=== PATIENT | female | born 1945 | race Caucasian/White ===

== ENCOUNTER → 2016-10-20 | Outpatient (CLI) | payer MEDICARE, OTHER ==
[~2016-10-20] MED LIST: ACET-2744 PO; ALBU8.5H IH; ALBU8HFA4 IH; AMLO2.5T PO; ASCO-360 PO; ASPI81TA2 PO; BACL20TA PO; BUDE10.2 IH; CALC-51 PO; CALC-789 PO; CLON.5 PO; CLON0.5T PO; CRAN500C3 PO; DULO30CA2 PO; EFIN4SOL TP; FERR325C PO; FLUT44HFA IH; FLUT9.9S NASAL; FLUV50 PO; GLUC-206 PO; HYDR-3971 PO; INSLAN SQ; INSNOV SQ; LOPE2TAB8 PO; METH1T PO; MONT10TA21 PO; MULT-1203 PO; OMEP20 PO; PHEN-857 PO; SITA25 PO; SLOMG PO; TAMS0.4C32 PO; TRAZ-144 PO; ZOLP5 PO
[2016-10-20 12:27] LABS: BASOPHILS % (AUTO) 0.4 % (0.0-2.0); EOSINOPHILS % (AUTO) 9.2 % (1.0-6.0); HEMOGLOBIN 10.9 g/dL (12.0-16.0); MEAN CORPUSCULAR HEMOGLOBIN 30.9 pg (26.0-34.0); MEAN CORPUSCULAR HGB CONC 31.1 G/dL (31.0-37.0); MEAN CORPUSCULAR VOLUME 100 fL (80-100); MONOCYTES # (AUTO) 0.5 K/uL (0.1-1.0); MONOCYTES % (AUTO) 6.7 % (2.0-9.0); NEUTROPHILS # (AUTO) 4.5 K/uL (1.8-7.7); NEUTROPHILS % (AUTO) 57.7 % (40.0-70.0); PLATELET COUNT (AUTO) 306 K/uL (150-450); RED BLOOD CELL COUNT(AUTO) 3.51 MIL/uL (4.00-5.20); RED CELL DISTRIBUTION WIDTH 15.5 % (11.5-14.5); WHITE BLOOD COUNT (AUTO) 7.8 K/uL (4.5-11.0)
[2016-10-20 12:37] LABS: ALBUMIN 3.6 g/dL (3.4-5.0); BILIRUBIN,TOTAL 0.3 mg/dL (0.1-1.0); CALCIUM, TOTAL 8.7 mg/dL (8.8-10.5); CHOL/HDL RATIO 3.7 (3.9-5.7); CREATININE 1.17 mg/dL (0.60-1.30); MAGNESIUM 1.5 mg/dL (1.80-2.40); POTASSIUM 4.7 mmol/L (3.5-5.1); TOTAL PROTEIN, SERUM 6.7 g/dL (6.4-8.2)
[2016-10-20 12:50] LABS: HEMOGLOBIN A1C 5.3 % (4.5-6.2)
[2016-10-24 10:47] LABS: CREATININE, URINE (mALB) 26.1 mg/dL (Not Estab.)
== END | disposition home or self-care (01) ==
LOC: LABPV 11:03
PROVIDERS: ATTEND Internal Medicine
DX: E11.69 Type 2 diabetes mellitus with other specified complication (principal); E78.5 Hyperlipidemia, unspecified; Z79.899 Other long term (current) drug therapy
CPT/HCPCS: 82043; 82570; 83036; 83735

== ENCOUNTER → 2016-11-22 | Outpatient (CLI) | payer MEDICARE, OTHER ==
[2016-11-22 16:32] LABS: BASOPHILS % (AUTO) 0.5 % (0.0-2.0); HEMOGLOBIN 9.1 g/dL (12.0-16.0); LYMPHOCYTES # (AUTO) 2.1 K/uL (1.0-4.8); LYMPHOCYTES % (AUTO) 29.2 % (22.0-44.0); MEAN CORPUSCULAR HGB CONC 31.5 G/dL (31.0-37.0); MEAN CORPUSCULAR VOLUME 105 fL (80-100); MONOCYTES # (AUTO) 0.5 K/uL (0.1-1.0); MONOCYTES % (AUTO) 6.6 % (2.0-9.0); NEUTROPHILS # (AUTO) 4.1 K/uL (1.8-7.7); NEUTROPHILS % (AUTO) 58.7 % (40.0-70.0); PLATELET COUNT (AUTO) 309 K/uL (150-450); RED BLOOD CELL COUNT(AUTO) 2.76 MIL/uL (4.00-5.20); RED CELL DISTRIBUTION WIDTH 16.7 % (11.5-14.5); WHITE BLOOD COUNT (AUTO) 7.1 K/uL (4.5-11.0)
[2016-11-22 16:34] LABS: RBC MORPHOLOGY COMMENT ABNORMAL RBC MORPH
[2016-11-22 16:38] LABS: HEMOGLOBIN A1C 5.2 % (4.5-6.2)
[2016-11-22 17:56] LABS: CALCIUM, TOTAL 8.4 mg/dL (8.8-10.5); CREATININE 0.98 mg/dL (0.60-1.30); MAGNESIUM 1.5 mg/dL (1.80-2.40); POTASSIUM 5.2 mmol/L (3.5-5.1); THYROID STIMULATING HORMONE 2.72 uIU/mL (0.36-3.74)
== END | disposition home or self-care (01) ==
LOC: LABPV 13:40
PROVIDERS: ATTEND Internal Medicine
DX: E11.69 Type 2 diabetes mellitus with other specified complication (principal); E03.9 Hypothyroidism, unspecified; D64.9 Anemia, unspecified; Z79.899 Other long term (current) drug therapy
CPT/HCPCS: 82728; 82746; 83036; 83540; 83550; 83735; 84443

== ENCOUNTER → 2016-12-28 | Outpatient (CLI) | payer MEDICARE, OTHER ==
[~2016-12-28] MED LIST changes: -ALBU8.5H IH; -AMLO2.5T PO; -ASCO-360 PO; -BUDE10.2 IH; -CALC-789 PO; -CLON.5 PO; -CRAN500C3 PO; -EFIN4SOL TP; -FERR325C PO; -GLUC-206 PO; -LOPE2TAB8 PO; -METH1T PO; -MULT-1203 PO; -PHEN-857 PO; -SLOMG PO
[2016-12-28 16:29] LABS: BASOPHILS % (AUTO) 0.4 % (0.0-2.0); EOSINOPHILS % (AUTO) 9.1 % (1.0-6.0); HEMATOCRIT 32.1 % (36-46); LYMPHOCYTES # (AUTO) 1.7 K/uL (1.0-4.8); LYMPHOCYTES % (AUTO) 23.6 % (22.0-44.0); MEAN CORPUSCULAR HEMOGLOBIN 32.4 pg (26.0-34.0); MEAN CORPUSCULAR HGB CONC 31.2 G/dL (31.0-37.0); MEAN CORPUSCULAR VOLUME 104 fL (80-100); MONOCYTES # (AUTO) 0.5 K/uL (0.1-1.0); MONOCYTES % (AUTO) 6.8 % (2.0-9.0); NEUTROPHILS # (AUTO) 4.2 K/uL (1.8-7.7); NEUTROPHILS % (AUTO) 60.1 % (40.0-70.0); PLATELET COUNT (AUTO) 326 K/uL (150-450); RED BLOOD CELL COUNT(AUTO) 3.09 MIL/uL (4.00-5.20); RED CELL DISTRIBUTION WIDTH 14.1 % (11.5-14.5)
[2016-12-28 16:32] LABS: RBC MORPHOLOGY COMMENT ABNORMAL RBC MORPH
[2016-12-28 16:48] LABS: ALBUMIN 3.2 g/dL (3.4-5.0); BILIRUBIN,TOTAL 0.3 mg/dL (0.1-1.0); CHOL/HDL RATIO 3.8 (3.9-5.7); CREATININE 1.39 mg/dL (0.60-1.30); MAGNESIUM 1.6 mg/dL (1.80-2.40); POTASSIUM 5.8 mmol/L (3.5-5.1); TOTAL PROTEIN, SERUM 6.8 g/dL (6.4-8.2)
[2016-12-28 16:51] LABS: HEMOGLOBIN A1C 5.8 % (4.5-6.2)
== END | disposition home or self-care (01) ==
LOC: LABPV 13:06
PROVIDERS: ATTEND Internal Medicine
DX: E11.69 Type 2 diabetes mellitus with other specified complication (principal); E78.5 Hyperlipidemia, unspecified; D64.9 Anemia, unspecified; Z79.899 Other long term (current) drug therapy
CPT/HCPCS: 82607; 83036; 83540; 83735

== ENCOUNTER → 2017-01-15 | Outpatient (CLI) | payer MEDICARE, OTHER ==
[2017-01-15 16:21] LABS: CALCIUM, TOTAL 8.7 mg/dL (8.8-10.5); CREATININE 1.08 mg/dL (0.60-1.30); MAGNESIUM 1.7 mg/dL (1.80-2.40); POTASSIUM 4.9 mmol/L (3.5-5.1)
== END | disposition home or self-care (01) ==
LOC: LABPV 14:34
PROVIDERS: ATTEND Internal Medicine
DX: E78.5 Hyperlipidemia, unspecified (principal); E83.42 Hypomagnesemia
CPT/HCPCS: 83735

== ENCOUNTER 2017-01-30 22:00 | Emergency (ER) | payer MEDICARE, OTHER ==
[~2017-01-30] VITALS: Ht 170.2 cm; Wt 79.5 kg
[2017-01-30 22:33] LABS: GLUCOSE COMMENT 1 Repeated; GLUCOSE,POINT OF CARE 194 MG/DL (70-110)
[2017-01-30 22:51] LABS: BASOPHILS % (AUTO) 0.4 % (0.0-2.0); EOSINOPHILS % (AUTO) 3.9 % (1.0-6.0); HEMATOCRIT 30.9 % (36-46); HEMOGLOBIN 9.5 g/dL (12.0-16.0); LYMPHOCYTES % (AUTO) 24.2 % (22.0-44.0); MEAN CORPUSCULAR HGB CONC 30.8 G/dL (31.0-37.0); MEAN CORPUSCULAR VOLUME 107 fL (80-100); MONOCYTES # (AUTO) 0.5 K/uL (0.1-1.0); MONOCYTES % (AUTO) 6.4 % (2.0-9.0); NEUTROPHILS # (AUTO) 5.3 K/uL (1.8-7.7); NEUTROPHILS % (AUTO) 65.1 % (40.0-70.0); PLATELET COUNT (AUTO) 319 K/uL (150-450); RED BLOOD CELL COUNT(AUTO) 2.89 MIL/uL (4.00-5.20); RED CELL DISTRIBUTION WIDTH 16.8 % (11.5-14.5); WHITE BLOOD COUNT (AUTO) 8.2 K/uL (4.5-11.0)
[2017-01-30 23:03] LABS: ANION GAP 3 mmol/L (8-16); CALCIUM, TOTAL 8.6 mg/dL (8.8-10.5); CARBON DIOXIDE 34 mmol/L (22-29); CHLORIDE 99 mmol/L (98-107); CREATININE 1.13 mg/dL (0.60-1.30); GLOMERULAR FILTR. RATE CALC 47 mL/min (>60); POTASSIUM 4.6 mmol/L (3.5-5.1); SODIUM SERUM 136 mmol/L (136-145); UREA NITROGEN, BLOOD 27 mg/dL (7-18)
[2017-01-30 23:04] LABS: RBC MORPHOLOGY COMMENT ABNORMAL RBC MORPH
[2017-01-30 23:08] LABS: ALANINE AMINOTRANSFERASE 23 U/L (12-78); ALBUMIN 3.2 g/dL (3.4-5.0); ASPARTATE AMINOTRANSFERASE 12 U/L (15-37); BILIRUBIN,TOTAL 0.5 mg/dL (0.1-1.0); TOTAL PROTEIN, SERUM 6.3 g/dL (6.4-8.2)
[2017-01-30 23:09] LABS: B-TYPE NATRIURETIC PEPTIDE < 5 pg/mL (0-100)
[2017-01-30 23:19] LABS: APPEARANCE,URINE TURBID (CLEAR); GLUCOSE, URINE (UA) 100 mg/dL (NEGATIVE); KETONES,URINE NEGATIVE (NEGATIVE); LEUKOCYTE ESTERASE ,URINE LARGE (NEGATIVE); OCCULT BLOOD,URINE SMALL (NEGATIVE); PH,URINE 6.5 (5.0-8.0); PROTEIN,URINE POS 1+ (NEGATIVE)
[2017-01-30 23:28] LABS: SQUAMOUS EPITHELIAL CELL,UR Few /LPF (None Seen); WBC,URINE >100 /HPF (0-5)
[2017-01-30 23:32] LABS: LACTIC ACID 1.9 mmol/L (0.4-2.0)
[2017-01-31 00:43] VITALS: BP 164/70
[2017-01-31] MEDS ORDERED: CIPROFLOXACIN HCL 250 MG TABLET PO ONE (00:45)
[2017-01-31] MEDS ORDERED: ClonazePAM 1 MG TABLET PO ONE (00:45)
[2017-02-21] MEDS ORDERED: EFIN4SOL TP (15:28)
[2017-02-21] MEDS ORDERED: CLON.5 PO (15:28)
[2017-02-21] MEDS ORDERED: FERR325C PO (15:28)
[2017-02-21] MEDS ORDERED: PHEN-857 PO (15:28)
[2017-02-21] MEDS ORDERED: GLUC-206 PO (15:28)
[2017-02-21] MEDS ORDERED: ALBU8.5H IH (15:28)
[2017-02-21] MEDS ORDERED: CRAN500C3 PO (15:28)
[2017-02-21] MEDS ORDERED: ASCO-360 PO (15:28)
[2017-02-21] MEDS ORDERED: FLUV50 PO (15:28)
[2017-02-21] MEDS ORDERED: LOPE2TAB8 PO (15:28)
[2017-02-21] MEDS ORDERED: METH1T PO (15:28)
[2017-02-21] MEDS ORDERED: SLOMG PO (15:28)
[2017-02-21] MEDS ORDERED: MULT-1203 PO (15:28)
[2017-02-21] MEDS ORDERED: CALC-789 PO (15:28)
[2017-02-21] MEDS ORDERED: AMLO2.5T PO (15:28)
[2017-02-21] MEDS ORDERED: BUDE10.2 IH (15:28)
== END 2017-01-31 01:00 | disposition home or self-care (01) ==
LOC: EMS 22:03
DX: N39.0 Urinary tract infection, site not specified (principal); E11.65 Type 2 diabetes mellitus with hyperglycemia; E11.40 Type 2 diabetes mellitus with diabetic neuropathy, unspecified; J45.909 Unspecified asthma, uncomplicated; K21.9 Gastro-esophageal reflux disease without esophagitis; E03.9 Hypothyroidism, unspecified; I10 Essential (primary) hypertension; F11.90 Opioid use, unspecified, uncomplicated; Z79.4 Long term (current) use of insulin; Z88.6 Allergy status to analgesic agent; Z88.1 Allergy status to other antibiotic agents; Z88.5 Allergy status to narcotic agent; Z88.8 Allergy status to other drugs, medicaments and biological substances
CPT/HCPCS: 82962; 83605; 87040; 87086; 93005; 99285

== ENCOUNTER → 2017-01-31 | Outpatient (CLI) | payer MEDICARE, OTHER ==
[2017-01-31 11:49] LABS: BASOPHILS % (AUTO) 0.3 % (0.0-2.0); EOSINOPHILS % (AUTO) 3.4 % (1.0-6.0); HEMATOCRIT 30.5 % (36-46); HEMOGLOBIN 9.5 g/dL (12.0-16.0); LYMPHOCYTES # (AUTO) 2.1 K/uL (1.0-4.8); LYMPHOCYTES % (AUTO) 27.1 % (22.0-44.0); MEAN CORPUSCULAR HEMOGLOBIN 33.2 pg (26.0-34.0); MEAN CORPUSCULAR VOLUME 107 fL (80-100); MONOCYTES # (AUTO) 0.5 K/uL (0.1-1.0); MONOCYTES % (AUTO) 6.7 % (2.0-9.0); NEUTROPHILS # (AUTO) 4.9 K/uL (1.8-7.7); NEUTROPHILS % (AUTO) 62.5 % (40.0-70.0); PLATELET COUNT (AUTO) 304 K/uL (150-450); RED BLOOD CELL COUNT(AUTO) 2.85 MIL/uL (4.00-5.20); RED CELL DISTRIBUTION WIDTH 16.2 % (11.5-14.5); WHITE BLOOD COUNT (AUTO) 7.9 K/uL (4.5-11.0)
[2017-01-31 11:50] LABS: RBC MORPHOLOGY COMMENT ABNORMAL RBC MORPH
[2017-01-31 13:02] LABS: ALBUMIN 3.3 g/dL (3.4-5.0); BILIRUBIN,TOTAL 0.5 mg/dL (0.1-1.0); CALCIUM, TOTAL 8.9 mg/dL (8.8-10.5); CHOL/HDL RATIO 3.2 (3.9-5.7); MAGNESIUM 1.7 mg/dL (1.80-2.40); POTASSIUM 4.9 mmol/L (3.5-5.1); THYROID STIMULATING HORMONE 4.71 uIU/mL (0.36-3.74); TOTAL PROTEIN, SERUM 6.4 g/dL (6.4-8.2)
[2017-01-31 13:30] LABS: HEMOGLOBIN A1C 5.4 % (4.5-6.2)
== END | disposition home or self-care (01) ==
LOC: LABPV 09:57
PROVIDERS: ATTEND Internal Medicine Cardiovascular Disease
DX: I11.0 Hypertensive heart disease with heart failure (principal); I50.9 Heart failure, unspecified; E11.8 Type 2 diabetes mellitus with unspecified complications; E55.9 Vitamin D deficiency, unspecified
CPT/HCPCS: 82306; 83036; 83735; 84439; 84443

== ENCOUNTER → 2017-02-12 | Outpatient (CLI) | payer MEDICARE, OTHER | END | disposition home or self-care (01) | LOC: RADPV 12:30 | PROVIDERS: ATTEND Urology | DX: N28.1 Cyst of kidney, acquired (principal); N39.0 Urinary tract infection, site not specified; N32.89 Other specified disorders of bladder | CPT/HCPCS: 76770 ==

== ENCOUNTER 2017-02-17 15:00 | Emergency (ER) | payer MEDICARE, OTHER ==
[~2017-02-17] VITALS: Ht 167.6 cm; Wt 95.5 kg
[2017-02-17 15:22] LABS: GLUCOSE,POINT OF CARE 226 MG/DL (70-110)
[2017-02-17 16:03] LABS: BASOPHILS % (AUTO) 0.2 % (0.0-2.0); HEMATOCRIT 28.1 % (36-46); HEMOGLOBIN 9.3 g/dL (12.0-16.0); LYMPHOCYTES # (AUTO) 1.4 K/uL (1.0-4.8); LYMPHOCYTES % (AUTO) 27.5 % (22.0-44.0); MEAN CORPUSCULAR HEMOGLOBIN 35.8 pg (26.0-34.0); MEAN CORPUSCULAR HGB CONC 33.1 G/dL (31.0-37.0); MEAN CORPUSCULAR VOLUME 108 fL (80-100); MONOCYTES # (AUTO) 0.4 K/uL (0.1-1.0); MONOCYTES % (AUTO) 7.5 % (2.0-9.0); NEUTROPHILS # (AUTO) 3.2 K/uL (1.8-7.7); NEUTROPHILS % (AUTO) 61.8 % (40.0-70.0); PLATELET COUNT (AUTO) 325 K/uL (150-450); RED BLOOD CELL COUNT(AUTO) 2.59 MIL/uL (4.00-5.20); RED CELL DISTRIBUTION WIDTH 14.9 % (11.5-14.5); WHITE BLOOD COUNT (AUTO) 5.3 K/uL (4.5-11.0)
[2017-02-17 16:14] LABS: INR 0.9 (0.9-1.1)
[2017-02-17 16:19] LABS: ANION GAP 7 mmol/L (8-16); CALCIUM, TOTAL 8.6 mg/dL (8.8-10.5); CARBON DIOXIDE 29 mmol/L (22-29); CHLORIDE 102 mmol/L (98-107); CREATININE 1.09 mg/dL (0.60-1.30); GLOMERULAR FILTR. RATE CALC 49 mL/min (>60); POTASSIUM 4.7 mmol/L (3.5-5.1); SODIUM SERUM 138 mmol/L (136-145); UREA NITROGEN, BLOOD 21 mg/dL (7-18)
[2017-02-17 16:21] LABS: B-TYPE NATRIURETIC PEPTIDE 8 pg/mL (0-100)
[2017-02-17 16:24] LABS: ALANINE AMINOTRANSFERASE 19 U/L (12-78); ALBUMIN 2.9 g/dL (3.4-5.0); AMYLASE 20 U/L (25-115); ASPARTATE AMINOTRANSFERASE 10 U/L (15-37); BILIRUBIN,TOTAL 0.5 mg/dL (0.1-1.0); CREATINE KINASE, TOTAL 32 U/L (26-192); RBC MORPHOLOGY COMMENT ABNORMAL RBC MORPH; TOTAL PROTEIN, SERUM 5.7 g/dL (6.4-8.2)
[2017-02-17 16:37] LABS: APPEARANCE,URINE CLOUDY (CLEAR); GLUCOSE, URINE (UA) 250 mg/dL (NEGATIVE); KETONES,URINE NEGATIVE (NEGATIVE); LEUKOCYTE ESTERASE ,URINE LARGE (NEGATIVE); OCCULT BLOOD,URINE MODERATE (NEGATIVE); PROTEIN,URINE NEGATIVE (NEGATIVE)
[2017-02-17 16:40] LABS: ADD UA MICROSCOPIC YES; WBC,URINE 51-100 /HPF (0-5)
[2017-02-17 16:41] LABS: SQUAMOUS EPITHELIAL CELL,UR Few /LPF (None Seen)
[2017-02-17] MEDS ORDERED: SODIUM CHLORIDE 0.9% 1,000 ML IV ONE ×2 (17:21→17:30)
[2017-02-17] MEDS ORDERED: LEVOFLOXACIN 500 MG/D5% WATER 100 ML IV ONE (17:30)
[2017-02-17 19:25] VITALS: BP 112/65
== END 2017-02-17 19:27 | disposition home or self-care (01) ==
LOC: EMS 15:02
DX: N39.0 Urinary tract infection, site not specified (principal); E11.9 Type 2 diabetes mellitus without complications; I10 Essential (primary) hypertension; J45.909 Unspecified asthma, uncomplicated; E03.9 Hypothyroidism, unspecified; K21.9 Gastro-esophageal reflux disease without esophagitis; F11.90 Opioid use, unspecified, uncomplicated; Z88.1 Allergy status to other antibiotic agents; Z88.5 Allergy status to narcotic agent; Z88.8 Allergy status to other drugs, medicaments and biological substances; Z79.4 Long term (current) use of insulin
CPT/HCPCS: 36415; 71010; 80053; 81001; 82150; 82550; 82962; 83690; 83880; 84484; 85025; 85610; 85730; 87086; 93005; 96365; 96366; 99285; J1956; J7030

== ENCOUNTER → 2017-02-21 | Outpatient (CLI) | payer MEDICARE, OTHER ==
[~2017-02-21] VITALS: Ht 167.6 cm; Wt 96.1 kg
[~2017-02-21] MED LIST changes: +ALBU8.5H IH; +AMLO2.5T PO; +ASCO-360 PO; +BUDE10.2 IH; +CALC-789 PO; +CLON.5 PO; +CLOTRIMAZOLE 1% 15 GM CREAM TP ONE; +CRAN500C3 PO; +EFIN4SOL TP; +FERR325C PO; +GLUC-206 PO; +LOPE2TAB8 PO; +METH1T PO; +MULT-1203 PO; +PHEN-857 PO; +SLOMG PO
[2017-02-21 14:55] VITALS: BP 149/75
== END | disposition home or self-care (01) ==
LOC: HBOWC 12:39
PROVIDERS: ATTEND Emergency Medicine Undersea and Hyperbaric Medicine
DX: L89.151 Pressure ulcer of sacral region, stage 1 (principal); L84 Corns and callosities; K21.9 Gastro-esophageal reflux disease without esophagitis; E03.9 Hypothyroidism, unspecified; J45.909 Unspecified asthma, uncomplicated; F31.9 Bipolar disorder, unspecified; I11.0 Hypertensive heart disease with heart failure; I50.9 Heart failure, unspecified; E11.40 Type 2 diabetes mellitus with diabetic neuropathy, unspecified; E78.5 Hyperlipidemia, unspecified; G89.4 Chronic pain syndrome; F11.90 Opioid use, unspecified, uncomplicated; Z79.4 Long term (current) use of insulin

== ENCOUNTER → 2017-03-08 | Outpatient (CLI) | payer MEDICARE, OTHER ==
[~2017-03-08] MED LIST changes: -CALC-51 PO; -CLON0.5T PO; -CLOTRIMAZOLE 1% 15 GM CREAM TP ONE; -FLUT44HFA IH; -TAMS0.4C32 PO
[2017-03-08 15:13] VITALS: BP 107/50
== END | disposition home or self-care (01) ==
LOC: HBOWC 09:58
PROVIDERS: ATTEND Emergency Medicine
DX: E11.622 Type 2 diabetes mellitus with other skin ulcer (principal); L98.491 Non-pressure chronic ulcer of skin of other sites limited to breakdown of skin; L89.311 Pressure ulcer of right buttock, stage 1; E78.5 Hyperlipidemia, unspecified; F31.9 Bipolar disorder, unspecified; G89.4 Chronic pain syndrome; L84 Corns and callosities; K21.9 Gastro-esophageal reflux disease without esophagitis; I11.0 Hypertensive heart disease with heart failure; I50.9 Heart failure, unspecified; E03.9 Hypothyroidism, unspecified; F11.90 Opioid use, unspecified, uncomplicated; E11.40 Type 2 diabetes mellitus with diabetic neuropathy, unspecified; J45.909 Unspecified asthma, uncomplicated; E83.42 Hypomagnesemia; Z79.4 Long term (current) use of insulin; Z87.440 Personal history of urinary (tract) infections

== ENCOUNTER → 2017-03-08 | Outpatient (CLI) | payer MEDICARE, OTHER ==
[2017-03-08 13:56] LABS: BASOPHILS % (AUTO) 0.3 % (0.0-2.0); HEMATOCRIT 34.6 % (36-46); HEMOGLOBIN 11.5 g/dL (12.0-16.0); LYMPHOCYTES # (AUTO) 1.6 K/uL (1.0-4.8); LYMPHOCYTES % (AUTO) 13.2 % (22.0-44.0); MEAN CORPUSCULAR HEMOGLOBIN 34.5 pg (26.0-34.0); MEAN CORPUSCULAR HGB CONC 33.2 G/dL (31.0-37.0); MEAN CORPUSCULAR VOLUME 104 fL (80-100); MONOCYTES # (AUTO) 0.6 K/uL (0.1-1.0); MONOCYTES % (AUTO) 5.2 % (2.0-9.0); NEUTROPHILS # (AUTO) 9.8 K/uL (1.8-7.7); NEUTROPHILS % (AUTO) 80.3 % (40.0-70.0); PLATELET COUNT (AUTO) 362 K/uL (150-450); RED BLOOD CELL COUNT(AUTO) 3.32 MIL/uL (4.00-5.20); RED CELL DISTRIBUTION WIDTH 14.6 % (11.5-14.5); WHITE BLOOD COUNT (AUTO) 12.3 K/uL (4.5-11.0)
[2017-03-08 14:15] LABS: HEMOGLOBIN A1C 5.7 % (4.5-6.2)
[2017-03-08 15:34] LABS: RBC MORPHOLOGY COMMENT ABNORMAL RBC MORPH
[2017-03-08 19:49] LABS: ALBUMIN 3.8 g/dL (3.4-5.0); BILIRUBIN,TOTAL 0.4 mg/dL (0.1-1.0); CALCIUM, TOTAL 8.9 mg/dL (8.8-10.5); CREATININE 1.2 mg/dL (0.60-1.30); POTASSIUM 4.6 mmol/L (3.5-5.1); THYROID STIMULATING HORMONE 1.51 uIU/mL (0.36-3.74); TOTAL PROTEIN, SERUM 6.6 g/dL (6.4-8.2)
== END | disposition home or self-care (01) ==
LOC: LABPV 12:24
PROVIDERS: ATTEND Internal Medicine
DX: E11.69 Type 2 diabetes mellitus with other specified complication (principal); D64.9 Anemia, unspecified; E78.5 Hyperlipidemia, unspecified
CPT/HCPCS: 83036; 83540; 84443

== ENCOUNTER → 2017-03-14 | Outpatient (CLI) | payer MEDICARE, OTHER ==
[2017-03-14 15:15] LABS: ALBUMIN 3.3 g/dL (3.4-5.0); BILIRUBIN,TOTAL 0.3 mg/dL (0.1-1.0); CALCIUM, TOTAL 9.4 mg/dL (8.8-10.5); CREATININE 1.3 mg/dL (0.60-1.30); POTASSIUM 5.1 mmol/L (3.5-5.1); THYROID STIMULATING HORMONE 1.89 uIU/mL (0.36-3.74); TOTAL PROTEIN, SERUM 6.4 g/dL (6.4-8.2)
== END | disposition home or self-care (01) ==
LOC: LABPV 14:04
PROVIDERS: ATTEND Internal Medicine Cardiovascular Disease
DX: I11.0 Hypertensive heart disease with heart failure (principal); I50.9 Heart failure, unspecified; E11.8 Type 2 diabetes mellitus with unspecified complications
CPT/HCPCS: 84439; 84443

== ENCOUNTER 2017-04-10 15:17 | Emergency (ER) | payer MEDICARE, OTHER ==
[~2017-04-10] VITALS: Ht 152.4 cm; Wt 95.5 kg
[~2017-04-10 15:17] MED LIST changes: +ADV250 IH; -ALBU8HFA4 IH; -AMLO2.5T PO; -ASPI81TA2 PO; +BACL10TA PO; -BACL20TA PO; -BUDE10.2 IH; -DULO30CA2 PO; +MACR100 PO; +MAGOX PO; -OMEP20 PO; +SITA100 PO; -SITA25 PO; -SLOMG PO; -TRAZ-144 PO; +TRAZ-147 PO
[2017-04-10 15:37] LABS: GLUCOSE,POINT OF CARE 271 MG/DL (70-110)
[2017-04-10 16:36] LABS: BASOPHILS # (AUTO) 0.02 K/uL (0.00-0.20); BASOPHILS % (AUTO) 0.4 % (0.0-2.0); EOSINOPHILS # (AUTO) 0.15 K/uL (0.00-0.70); EOSINOPHILS % (AUTO) 2.63 % (1.0-6.0); HEMATOCRIT 31.3 % (36-46); HEMOGLOBIN 10.2 g/dL (12.0-16.0); LYMPHOCYTES % (AUTO) 18.1 % (22.0-44.0); MEAN CORPUSCULAR HEMOGLOBIN 34.1 pg (26.0-34.0); MEAN CORPUSCULAR HGB CONC 32.4 G/dL (31.0-37.0); MEAN CORPUSCULAR VOLUME 105 fL (80-100); MONOCYTES # (AUTO) 0.2 K/uL (0.1-1.0); MONOCYTES % (AUTO) 4.3 % (2.0-9.0); NEUTROPHILS # (AUTO) 4.2 K/uL (1.8-7.7); NEUTROPHILS % (AUTO) 74.6 % (40.0-70.0); PLATELET COUNT (AUTO) 306 K/uL (150-450); RED BLOOD CELL COUNT(AUTO) 2.98 MIL/uL (4.00-5.20); RED CELL DISTRIBUTION WIDTH 14.7 % (11.5-14.5); WHITE BLOOD COUNT (AUTO) 5.6 K/uL (4.5-11.0)
[2017-04-10] MEDS ORDERED: SODIUM CHLORIDE 0.9% 1,000 ML IV ONE (16:45)
[2017-04-10] MEDS ORDERED: PROCHLORPERAZINE EDISYLATE 5 MG/ML 2 ML VIAL IVP ONE (16:45)
[2017-04-10 16:52] LABS: CALCIUM, TOTAL 9.4 mg/dL (8.8-10.5); CREATININE 0.97 mg/dL (0.60-1.30); POTASSIUM 4.1 mmol/L (3.5-5.1)
[2017-04-10 16:55] LABS: RBC MORPHOLOGY COMMENT ABNORMAL RBC MORPH
[2017-04-10 17:03] LABS: ALBUMIN 3.3 g/dL (3.4-5.0); BILIRUBIN,TOTAL 0.5 mg/dL (0.1-1.0); TOTAL PROTEIN, SERUM 6.3 g/dL (6.4-8.2)
[2017-04-10] MEDS ORDERED: DiphenhydrAMINE HCL 50 MG/ML VIAL IVP ONE (17:45)
[2017-04-10] MEDS ORDERED: DEXAMETHASONE 4 MG TABLET PO ONE (17:45)
[2017-04-10 19:00] VITALS: BP 160/71
== END 2017-04-10 19:05 | disposition home or self-care (01) ==
LOC: EMS 15:20
DX: R11.2 Nausea with vomiting, unspecified (principal); R51 Headache; E11.9 Type 2 diabetes mellitus without complications; I10 Essential (primary) hypertension; E03.9 Hypothyroidism, unspecified; K21.9 Gastro-esophageal reflux disease without esophagitis; J45.909 Unspecified asthma, uncomplicated; F11.90 Opioid use, unspecified, uncomplicated; Z79.4 Long term (current) use of insulin; Z88.8 Allergy status to other drugs, medicaments and biological substances; Z88.1 Allergy status to other antibiotic agents
CPT/HCPCS: 36415; 80053; 82962; 83690; 84484; 84703; 85025; 93005; 96361; 96374; 96375; 99285; J0780; J1200; J7030; J8540

== ENCOUNTER 2017-05-11 20:39 | Emergency (ER) | payer MEDICARE, OTHER ==
[~2017-05-11] VITALS: Ht 162.6 cm; Wt 111.4 kg
[~2017-05-11 20:39] MED LIST changes: -ASCO-360 PO; -CLON.5 PO; -CRAN500C3 PO; -EFIN4SOL TP; -FERR325C PO; -FLUT9.9S NASAL; -FLUV50 PO; -GLUC-206 PO; -HYDR-3971 PO; -LOPE2TAB8 PO; -MACR100 PO; -METH1T PO; -MONT10TA21 PO; -PHEN-857 PO; -ZOLP5 PO
[2017-05-11] MEDS ORDERED: MONT10TA21 PO (21:09)
[2017-05-11] MEDS ORDERED: OMEP20 PO (21:09)
[2017-05-11] MEDS ORDERED: FLUV50 PO (21:09)
[2017-05-11] MEDS ORDERED: HYDR-305 PO (21:09)
[2017-05-11] MEDS ORDERED: ASCO500 PO (21:09)
[2017-05-11] MEDS ORDERED: EFIN4SOL TP (21:09)
[2017-05-11] MEDS ORDERED: [UNRECOGNIZED DRUG - CODE] PO (21:09)
[2017-05-11] MEDS ORDERED: CLON.5 PO (21:09)
[2017-05-11] MEDS ORDERED: GLUC1TAB21 PO (21:09)
[2017-05-11] MEDS ORDERED: ZOLP5 PO (21:09)
[2017-05-11] MEDS ORDERED: ASPI81 PO (21:09)
[2017-05-11] MEDS ORDERED: PHEN-857 PO (21:09)
[2017-05-11 22:39] LABS: BASOPHILS % (AUTO) 0.2 % (0.0-2.0); EOSINOPHILS % (AUTO) 6.3 % (1.0-6.0); HEMATOCRIT 29.1 % (36-46); HEMOGLOBIN 9.5 g/dL (12.0-16.0); LYMPHOCYTES # (AUTO) 1.7 K/uL (1.0-4.8); LYMPHOCYTES % (AUTO) 24.3 % (22.0-44.0); MEAN CORPUSCULAR HEMOGLOBIN 34.6 pg (26.0-34.0); MEAN CORPUSCULAR HGB CONC 32.5 G/dL (31.0-37.0); MEAN CORPUSCULAR VOLUME 106 fL (80-100); MONOCYTES # (AUTO) 0.5 K/uL (0.1-1.0); MONOCYTES % (AUTO) 7.5 % (2.0-9.0); NEUTROPHILS # (AUTO) 4.2 K/uL (1.8-7.7); NEUTROPHILS % (AUTO) 61.7 % (40.0-70.0); PLATELET COUNT (AUTO) 262 K/uL (150-450); RED BLOOD CELL COUNT(AUTO) 2.74 MIL/uL (4.00-5.20); RED CELL DISTRIBUTION WIDTH 14.6 % (11.5-14.5); WHITE BLOOD COUNT (AUTO) 6.8 K/uL (4.5-11.0)
[2017-05-11 22:44] LABS: RBC MORPHOLOGY COMMENT ABNORMAL RBC MORPH
[2017-05-11 22:49] LABS: ANION GAP 4 mmol/L (8-16); CALCIUM, TOTAL 8.9 mg/dL (8.8-10.5); CARBON DIOXIDE 33 mmol/L (22-29); CHLORIDE 101 mmol/L (98-107); CREATININE 1.19 mg/dL (0.60-1.30); GLOMERULAR FILTR. RATE CALC 44 mL/min (>60); POTASSIUM 4.5 mmol/L (3.5-5.1); SODIUM SERUM 138 mmol/L (136-145); UREA NITROGEN, BLOOD 21 mg/dL (7-18)
[2017-05-11 22:55] LABS: ALANINE AMINOTRANSFERASE 18 U/L (12-78); ALBUMIN 3.2 g/dL (3.4-5.0); ASPARTATE AMINOTRANSFERASE 14 U/L (15-37); BILIRUBIN,TOTAL 0.7 mg/dL (0.1-1.0); TOTAL PROTEIN, SERUM 6.2 g/dL (6.4-8.2)
[2017-05-11] MEDS ORDERED: FUROSEMIDE 40 MG/4 ML VIAL IVP ONE (23:00)
[2017-05-11] MEDS ORDERED: HYDROCODONE/ACETAMINOPHEN 10-325 MG TABLET PO ONE (23:00)
[2017-05-11] MEDS ORDERED: CefTRIAXone 1 GM/DEXTROSE 50 ML IV ONE (23:00)
[2017-05-11 23:31] LABS: LACTIC ACID 2.2 mmol/L (0.4-2.0)
[2017-05-12 00:33] LABS: REFLEX LACTIC ACID? YES YES
[2017-05-12 02:46] VITALS: BP 134/80
== END 2017-05-12 03:30 | disposition home or self-care (01) ==
LOC: EMS 22:07
DX: L03.115 Cellulitis of right lower limb (principal); L03.116 Cellulitis of left lower limb; E11.65 Type 2 diabetes mellitus with hyperglycemia; R60.0 Localized edema; R06.02 Shortness of breath; M54.9 Dorsalgia, unspecified; G89.29 Other chronic pain; J45.909 Unspecified asthma, uncomplicated; K21.9 Gastro-esophageal reflux disease without esophagitis; I10 Essential (primary) hypertension; E03.9 Hypothyroidism, unspecified; F11.90 Opioid use, unspecified, uncomplicated; Z79.4 Long term (current) use of insulin; Z79.82 Long term (current) use of aspirin; Z88.6 Allergy status to analgesic agent; Z88.1 Allergy status to other antibiotic agents; Z88.5 Allergy status to narcotic agent; Z88.8 Allergy status to other drugs, medicaments and biological substances
CPT/HCPCS: 36415; 80053; 82009; 82962; 83605; 83690; 83880; 85025; 85379; 87040; 87077; 87186; 96365; 96375; 99284; G0480; J0696; J1940

== ENCOUNTER → 2017-05-29 | Outpatient (CLI) | payer MEDICARE, OTHER ==
[~2017-05-29] MED LIST changes: -ALBU8.5H IH; +ALBU8.5H8 IH; +ASCO500 PO; +ASPI81 PO; +CLON.5 PO; +EFIN4SOL TP; +FLUV50 PO; +GLUC1TAB21 PO; +HYDR-305 PO; +MONT10TA21 PO; +OMEP20 PO; +PHEN-934 PO; +ZOLP5 PO; +[UNRECOGNIZED DRUG - CODE] PO
[2017-05-29 12:53] LABS: BASOPHILS % (AUTO) 0.4 % (0.0-2.0); EOSINOPHILS % (AUTO) 5.8 % (1.0-6.0); HEMATOCRIT 31.6 % (36-46); HEMOGLOBIN 10.5 g/dL (12.0-16.0); HEMOGLOBIN A1C 6.6 % (4.5-6.2); LYMPHOCYTES # (AUTO) 2.2 K/uL (1.0-4.8); LYMPHOCYTES % (AUTO) 26.5 % (22.0-44.0); MEAN CORPUSCULAR VOLUME 106 fL (80-100); MONOCYTES # (AUTO) 0.5 K/uL (0.1-1.0); MONOCYTES % (AUTO) 6.2 % (2.0-9.0); NEUTROPHILS # (AUTO) 5.1 K/uL (1.8-7.7); NEUTROPHILS % (AUTO) 61.1 % (40.0-70.0); PLATELET COUNT (AUTO) 310 K/uL (150-450); RED BLOOD CELL COUNT(AUTO) 2.99 MIL/uL (4.00-5.20); RED CELL DISTRIBUTION WIDTH 14.6 % (11.5-14.5); WHITE BLOOD COUNT (AUTO) 8.3 K/uL (4.5-11.0)
[2017-05-29 13:01] LABS: ALBUMIN 3.7 g/dL (3.4-5.0); BILIRUBIN,TOTAL 0.3 mg/dL (0.1-1.0); CHOL/HDL RATIO 2.8 (3.9-5.7); CREATININE 1.04 mg/dL (0.60-1.30); TOTAL PROTEIN, SERUM 6.9 g/dL (6.4-8.2)
[2017-05-29 13:22] LABS: THYROID STIMULATING HORMONE 4.03 uIU/mL (0.36-3.74)
[2017-05-29 13:55] LABS: RBC MORPHOLOGY COMMENT ABNORMAL RBC MORPH
[2017-05-30 12:09] LABS: CREATININE, URINE (mALB) 48.1 mg/dL (Not Estab.)
== END | disposition home or self-care (01) ==
LOC: LABPV 10:37
PROVIDERS: ATTEND Internal Medicine
DX: E11.69 Type 2 diabetes mellitus with other specified complication (principal); D64.9 Anemia, unspecified; E78.5 Hyperlipidemia, unspecified; E03.9 Hypothyroidism, unspecified
CPT/HCPCS: 82043; 82570; 83036; 84443

== ENCOUNTER 2017-07-05 20:54 | Inpatient (IN) | payer MEDICARE, OTHER ==
[~2017-07-05] VITALS: Ht 162.6 cm; Wt 100.0 kg
[2017-07-05] MEDS ORDERED: FERR-89 PO (21:19)
[2017-07-05] MEDS ORDERED: FLUV50 PO (21:19)
[2017-07-05] MEDS ORDERED: ATEN25TA PO (21:19)
[2017-07-05] MEDS ORDERED: BUDE10.2 IH (21:19)
[2017-07-05] MEDS ORDERED: SIME125C91 PO (21:19)
[2017-07-05] MEDS ORDERED: MIRA25TA PO (21:19)
[2017-07-05] MEDS ORDERED: MTH/1CAP7 PO (21:19)
[2017-07-05] MEDS ORDERED: LOPE2 PO (21:19)
[2017-07-05] MEDS ORDERED: EFIN4SOL TP (21:19)
[2017-07-05] MEDS ORDERED: IPRATROPIUM BROMIDE 0.5 MG/2.5 ML NEB SOLUTION NEB ONE ×2 (21:30→23:15)
[2017-07-05] MEDS ORDERED: PredniSONE 20 MG TABLET PO ONE (21:30)
[2017-07-05] MEDS ORDERED: ALBUTEROL SULFATE 5 MG/ML 20 ML NEB SOLN [BULK] NEB ONE ×2 (21:30→23:15)
[2017-07-05] MEDS ORDERED: 0.9% SODIUM CHLORIDE 5 ML NEB SOLUTION NEB ONE ×2 (21:35→23:27)
[2017-07-05 21:40] LABS: BASOPHILS # (AUTO) 0.01 K/uL (0.00-0.20); BASOPHILS % (AUTO) 0.1 % (0.0-2.0); EOSINOPHILS # (AUTO) 0.15 K/uL (0.00-0.70); EOSINOPHILS % (AUTO) 1.84 % (1.0-6.0); HEMATOCRIT 34.2 % (36-46); HEMOGLOBIN 11.3 g/dL (12.0-16.0); LYMPHOCYTES # (AUTO) 1.3 K/uL (1.0-4.8); LYMPHOCYTES % (AUTO) 15.6 % (22.0-44.0); MEAN CORPUSCULAR HEMOGLOBIN 33.2 pg (26.0-34.0); MEAN CORPUSCULAR VOLUME 101 fL (80-100); MONOCYTES # (AUTO) 0.7 K/uL (0.1-1.0); MONOCYTES % (AUTO) 8.1 % (2.0-9.0); NEUTROPHILS % (AUTO) 74.5 % (40.0-70.0); PLATELET COUNT (AUTO) 236 K/uL (150-450); RED CELL DISTRIBUTION WIDTH 13.4 % (11.5-14.5)
[2017-07-05 22:01] LABS: BILIRUBIN,TOTAL 0.3 mg/dL (0.1-1.0); CALCIUM, TOTAL 8.7 mg/dL (8.8-10.5); CREATININE 1.39 mg/dL (0.60-1.30); POTASSIUM 4.6 mmol/L (3.5-5.1)
[2017-07-05 22:14] LABS: APPEARANCE,URINE CLOUDY (CLEAR); BILIRUBIN,URINE NEGATIVE (NEGATIVE); GLUCOSE, URINE (UA) >=1000 mg/dL (NEGATIVE); KETONES,URINE NEGATIVE (NEGATIVE); LEUKOCYTE ESTERASE ,URINE SMALL (NEGATIVE); NITRATE,URINE POSITIVE (NEGATIVE); OCCULT BLOOD,URINE TRACE (NEGATIVE); PROTEIN,URINE NEGATIVE (NEGATIVE); UROBILINOGEN,URINE 0.2 mg/dL (<=1.0)
[2017-07-05 23:05] LABS: BACTERIA,URINE Moderate /HPF (None Seen); WBC,URINE 51-100 /HPF (0-5)
[2017-07-05 23:06] LABS: RBC,URINE 0-2 /HPF (0-2); SQUAMOUS EPITHELIAL CELL,UR Rare /LPF (None Seen)
[2017-07-05] MEDS ORDERED: INSULIN REGULAR, HUMAN 100 UNITS/ML SQ ONE (23:15)
[2017-07-05 23:17] LABS: GLUCOSE,POINT OF CARE 479 MG/DL (70-110)
[2017-07-06] MEDS ORDERED: 0.9% SODIUM CHLORIDE 5 ML NEB SOLUTION NEB ONE (00:42)
[2017-07-06] MEDS ORDERED: DEXAMETHASONE SOD PHOS 4 MG/ML 5 ML VIAL IM ONE (00:45)
[2017-07-06] MEDS ORDERED: IPRATROPIUM BROMIDE 0.5 MG/2.5 ML NEB SOLUTION NEB ONE (00:45)
[2017-07-06] MEDS ORDERED: ALBUTEROL SULFATE 5 MG/ML 20 ML NEB SOLN [BULK] NEB ONE (00:45)
[2017-07-06] MEDS ORDERED: CIPROFLOXACIN HCL 250 MG TABLET PO ONE (02:30)
[2017-07-06] MEDS ORDERED: KETOROLAC TROMETHAMINE 30 MG/ML VIAL IVP ONE (02:30)
[2017-07-06] MEDS ORDERED: INSULIN REGULAR, HUMAN 100 UNITS/ML SQ ONE (03:45)
[2017-07-06 04:13] VITALS: BP 152/55
[2017-07-06 06:33] LABS: GLUCOMETER DEV NAME(LOC) 6N 1E; GLUCOSE,POINT OF CARE 464 MG/DL (70-110)
[2017-07-06] MEDS ORDERED: DEXTROSE 50%-WATER 25 GM/50 ML SYRINGE IVP PRN (06:45)
[2017-07-06] MEDS ORDERED: INSULIN GLARGINE,HUM.REC.ANLOG 100 UNITS/ML SQ ONE (06:45)
[2017-07-06 06:52] LABS: GLUCOSE,POINT OF CARE 509 MG/DL (70-110)
[2017-07-06] MEDS: INSULIN ASPART 100 UNITS/ML SQ PRN ×4 (06:59→20:17)
[2017-07-06 07:42] VITALS: BP 139/63
[2017-07-06] MEDS ORDERED: ACETAMINOPHEN 500 MG TABLET PO PRN (07:45)
[2017-07-06] MEDS ORDERED: ONDANSETRON HCL 4 MG/2 ML VIAL IVP PRN (07:45)
[2017-07-06] MEDS ORDERED: MAGNESIUM HYDROXIDE SUSPENSION 30 ML UDCUP PO PRN (07:45)
[2017-07-06] MEDS ORDERED: BISACODYL 10 MG RECTAL RECTAL SUPPOSITORY PR PRN (07:45)
[2017-07-06] MEDS ORDERED: SODIUM CHLORIDE 0.9% 250 ML IV ONE (08:43)
[2017-07-06] MEDS: LEVOFLOXACIN 250 MG/D5% WATER 50 ML IV SCH (08:52)
[2017-07-06] MEDS: ASCORBIC ACID 500 MG TABLET PO SCH ×2 (08:53→20:05)
[2017-07-06] MEDS: MethylPREDNISolone SOD SUCC 40 MG/ML VIAL IVP SCH ×3 (08:53→23:25)
[2017-07-06] MEDS: METOPROLOL SUCCINATE 25 MG ER TABLET PO SCH ×2 (08:53→20:05)
[2017-07-06] MEDS: ClonazePAM 0.5 MG TABLET PO SCH (08:53)
[2017-07-06] MEDS: DOCUSATE SODIUM 100 MG CAPSULE PO SCH ×2 (08:53→20:05)
[2017-07-06] MEDS: FERROUS SULFATE 325 MG EC TABLET PO SCH ×4 (08:53→20:05)
[2017-07-06] MEDS: PANTOPRAZOLE SODIUM 40 MG DR TABLET PO SCH (08:53)
[2017-07-06] MEDS: ASPIRIN 81 MG CHEWABLE TABLET PO SCH (09:00)
[2017-07-06] MEDS: INSULIN ASPART 100 UNITS/ML SQ SCH ×3 (09:03→21:00)
[2017-07-06 09:12] LABS: GLUCOMETER DEV NAME(LOC) 6N 2D; GLUCOSE,POINT OF CARE 398 MG/DL (70-110)
[2017-07-06 11:37] VITALS: BP 148/70
[2017-07-06 11:48] LABS: GLUCOMETER DEV NAME(LOC) 6N 2D; GLUCOSE,POINT OF CARE 382 MG/DL (70-110)
[2017-07-06] MEDS: ALBUTEROL SULFATE 2.5 MG/0.5 ML NEB SOLUTION NEB PRN ×2 (12:17→19:33)
[2017-07-06] MEDS: IPRATROPIUM BROMIDE 0.5 MG/2.5 ML NEB SOLUTION NEB PRN ×2 (12:18→19:33)
[2017-07-06] MEDS: HYDROCODONE/ACETAMINOPHEN 5-325 MG TABLET PO PRN ×2 (12:46→21:04)
[2017-07-06 14:23] LABS: CREATININE,URINE RANDOM 49.4 mg/dL (30.0-125.0); SODIUM,URINE RANDOM 12 mmol/l (20-110)
[2017-07-06 15:31] VITALS: BP 122/68
[2017-07-06 16:22] LABS: GLUCOMETER DEV NAME(LOC) 6N 2D; GLUCOSE,POINT OF CARE 255 MG/DL (70-110)
[2017-07-06 19:07] LABS: GLUCOMETER DEV NAME(LOC) 6N 2D; GLUCOSE,POINT OF CARE 378 MG/DL (70-110)
[2017-07-06 19:30] VITALS: BP 158/58
[2017-07-06] MEDS: INSULIN GLARGINE,HUM.REC.ANLOG 100 UNITS/ML SQ SCH (20:15)
[2017-07-06 20:43] LABS: GLUCOMETER DEV NAME(LOC) 6N 2D; GLUCOSE,POINT OF CARE 377 MG/DL (70-110)
[2017-07-06] MEDS: ZOLPIDEM TARTRATE 5 MG TABLET PO PRN (21:42)
[2017-07-06 23:19] VITALS: BP 149/73
[2017-07-06] MEDS: ClonazePAM 0.5 MG TABLET PO PRN (23:25)
[2017-07-06 23:37] LABS: GLUCOMETER DEV NAME(LOC) 6N 2D; GLUCOSE,POINT OF CARE 175 MG/DL (70-110)
[2017-07-07] MEDS ORDERED: 0.9% SODIUM CHLORIDE 5 ML NEB SOLUTION NEB ONE (00:52)
[2017-07-07] MEDS: ALBUTEROL SULFATE 2.5 MG/0.5 ML NEB SOLUTION NEB PRN ×2 (00:58→13:10)
[2017-07-07] MEDS: IPRATROPIUM BROMIDE 0.5 MG/2.5 ML NEB SOLUTION NEB PRN ×2 (00:58→13:10)
[2017-07-07] MEDS: HYDROCODONE/ACETAMINOPHEN 5-325 MG TABLET PO PRN ×2 (02:34→18:51)
[2017-07-07 04:23] VITALS: BP 149/57
[2017-07-07] MEDS: INSULIN ASPART 100 UNITS/ML SQ PRN ×4 (06:08→20:23)
[2017-07-07 06:22] LABS: GLUCOMETER DEV NAME(LOC) 6N 1E; GLUCOSE,POINT OF CARE 356 MG/DL (70-110)
[2017-07-07 07:39] VITALS: BP 141/66
[2017-07-07] MEDS: FERROUS SULFATE 325 MG EC TABLET PO SCH ×4 (08:00→20:13)
[2017-07-07] MEDS: LEVOFLOXACIN 250 MG/D5% WATER 50 ML IV SCH (08:26)
[2017-07-07] MEDS: MethylPREDNISolone SOD SUCC 40 MG/ML VIAL IVP SCH (08:27)
[2017-07-07] MEDS: ASCORBIC ACID 500 MG TABLET PO SCH ×2 (09:00→20:13)
[2017-07-07] MEDS: INSULIN ASPART 100 UNITS/ML SQ SCH ×3 (09:00→20:43)
[2017-07-07] MEDS: ASPIRIN 81 MG CHEWABLE TABLET PO SCH (09:00)
[2017-07-07] MEDS: ClonazePAM 0.5 MG TABLET PO SCH (09:00)
[2017-07-07] MEDS: DOCUSATE SODIUM 100 MG CAPSULE PO SCH ×3 (09:00→21:00)
[2017-07-07] MEDS ORDERED: PredniSONE 20 MG TABLET PO ONE (09:00)
[2017-07-07 11:22] LABS: GLUCOMETER DEV NAME(LOC) 6N 1E; GLUCOSE,POINT OF CARE 224 MG/DL (70-110)
[2017-07-07] MEDS: PROCHLORPERAZINE MALEATE 5 MG TABLET PO PRN ×2 (11:23→20:13)
[2017-07-07 11:46] VITALS: BP 154/81
[2017-07-07] MEDS: METOPROLOL SUCCINATE 25 MG ER TABLET PO SCH ×2 (12:10→20:13)
[2017-07-07] MEDS: PANTOPRAZOLE SODIUM 40 MG DR TABLET PO SCH (12:11)
[2017-07-07] MEDS: GuaiFENesin/D-METHORPHAN [SUGAR-FREE] 200-20MG/10 ML SYRUP UDCUP PO PRN ×2 (12:13→17:46)
[2017-07-07] MEDS: ACETAMINOPHEN 325 MG TABLET PO PRN ×2 (12:13→20:13)
[2017-07-07] MEDS: BACLOFEN 10 MG TABLET PO PRN ×2 (12:50→20:16)
[2017-07-07 15:35] VITALS: BP 158/64
[2017-07-07 17:33] LABS: GLUCOMETER DEV NAME(LOC) 6N 1E; GLUCOSE,POINT OF CARE 199 MG/DL (70-110)
[2017-07-07 20:13] VITALS: BP 192/83
[2017-07-07] MEDS: INSULIN GLARGINE,HUM.REC.ANLOG 100 UNITS/ML SQ SCH (20:43)
[2017-07-07] MEDS: ZOLPIDEM TARTRATE 5 MG TABLET PO PRN (21:44)
[2017-07-07 23:52] VITALS: BP 154/66
[2017-07-08] MEDS: GuaiFENesin/D-METHORPHAN [SUGAR-FREE] 200-20MG/10 ML SYRUP UDCUP PO PRN ×2 (00:04→05:54)
[2017-07-08] MEDS: HYDROCODONE/ACETAMINOPHEN 5-325 MG TABLET PO PRN (00:04)
[2017-07-08] MEDS: ALBUTEROL SULFATE 2.5 MG/0.5 ML NEB SOLUTION NEB PRN ×3 (00:09→14:46)
[2017-07-08] MEDS: IPRATROPIUM BROMIDE 0.5 MG/2.5 ML NEB SOLUTION NEB PRN ×3 (00:09→14:46)
[2017-07-08] MEDS: ACETAMINOPHEN 325 MG TABLET PO PRN ×3 (01:01→08:19)
[2017-07-08] MEDS: ClonazePAM 0.5 MG TABLET PO SCH ×2 (01:03→12:03)
[2017-07-08] MEDS: ClonazePAM 0.5 MG TABLET PO PRN (01:07)
[2017-07-08 02:11] LABS: GLUCOMETER DEV NAME(LOC) 6N 1E; GLUCOSE,POINT OF CARE 199 MG/DL (70-110)
[2017-07-08 04:41] VITALS: BP 143/79
[2017-07-08] MEDS: BACLOFEN 10 MG TABLET PO PRN (05:54)
[2017-07-08] MEDS: INSULIN ASPART 100 UNITS/ML SQ PRN ×2 (05:58→12:14)
[2017-07-08 06:08] LABS: GLUCOMETER DEV NAME(LOC) 6N 2D; GLUCOSE,POINT OF CARE 177 MG/DL (70-110)
[2017-07-08 06:24] LABS: BASOPHILS # (AUTO) 0.01 K/uL (0.00-0.20); EOSINOPHILS # (AUTO) 0.02 K/uL (0.00-0.70); EOSINOPHILS % (AUTO) 0.13 % (1.0-6.0); HEMATOCRIT 37.7 % (36-46); HEMOGLOBIN 12.4 g/dL (12.0-16.0); LYMPHOCYTES # (AUTO) 1.1 K/uL (1.0-4.8); LYMPHOCYTES % (AUTO) 8.9 % (22.0-44.0); MEAN CORPUSCULAR HEMOGLOBIN 33.3 pg (26.0-34.0); MEAN CORPUSCULAR HGB CONC 32.8 G/dL (31.0-37.0); MEAN CORPUSCULAR VOLUME 102 fL (80-100); MONOCYTES # (AUTO) 0.7 K/uL (0.1-1.0); MONOCYTES % (AUTO) 5.3 % (2.0-9.0); NEUTROPHILS # (AUTO) 10.5 K/uL (1.8-7.7); PLATELET COUNT (AUTO) 256 K/uL (150-450); RED BLOOD CELL COUNT(AUTO) 3.71 MIL/uL (4.00-5.20); RED CELL DISTRIBUTION WIDTH 13.4 % (11.5-14.5)
[2017-07-08 06:30] LABS: NEUTROPHILS % (AUTO) 85.7 % (40.0-70.0)
[2017-07-08 06:36] LABS: CALCIUM, TOTAL 9.1 mg/dL (8.8-10.5); CREATININE 1.08 mg/dL (0.60-1.30); POTASSIUM 4.4 mmol/L (3.5-5.1)
[2017-07-08] MEDS: FERROUS SULFATE 325 MG EC TABLET PO SCH ×2 (08:00→12:03)
[2017-07-08] MEDS: PROCHLORPERAZINE MALEATE 5 MG TABLET PO PRN (08:13)
[2017-07-08] MEDS: PANTOPRAZOLE SODIUM 40 MG DR TABLET PO SCH (08:14)
[2017-07-08] MEDS: LEVOFLOXACIN 250 MG/D5% WATER 50 ML IV SCH (08:14)
[2017-07-08] MEDS: INSULIN ASPART 100 UNITS/ML SQ SCH (09:00)
[2017-07-08] MEDS: DOCUSATE SODIUM 100 MG CAPSULE PO SCH (09:00)
[2017-07-08 11:04] LABS: GLUCOMETER DEV NAME(LOC) 6N 2D; GLUCOSE,POINT OF CARE 149 MG/DL (70-110)
[2017-07-08 11:25] VITALS: BP 165/75
[2017-07-08] MEDS ORDERED: MUPIROCIN CALCIUM 2% 22 GM OINTMENT NASAL SCH (11:30)
[2017-07-08] MEDS ORDERED: PRED20 PO (11:45)
[2017-07-08] MEDS ORDERED: LEVO500 PO (11:46)
[2017-07-08] MEDS: ASPIRIN 81 MG CHEWABLE TABLET PO SCH (12:02)
[2017-07-08] MEDS: METOPROLOL SUCCINATE 25 MG ER TABLET PO SCH (12:02)
[2017-07-08] MEDS: ASCORBIC ACID 500 MG TABLET PO SCH (12:06)
[2017-07-08 15:20] VITALS: BP 148/74
[2017-07-09 09:11] LABS: ORGANISM ID Not indicated.; S PNEUMO SOURCE Urine; STREP PNEUMONIAE AG URINE Negative (Negative); STREP.PNEUMO BODY FLUID CULT. Not Indicated
[2017-07-09 14:09] LABS: LEGIONELLA PNEUMO AG URINE Negative (Negative)
== END 2017-07-08 16:15 | disposition home or self-care (01) | DRG 202 ==
LOC: EMS 20:57 → 6N 07-06 02:29
PROVIDERS: ADMIT Hospitalist; ATTEND Hospitalist
DX: J45.901 Unspecified asthma with (acute) exacerbation (principal); E44.0 Moderate protein-calorie malnutrition; E11.22 Type 2 diabetes mellitus with diabetic chronic kidney disease; E11.40 Type 2 diabetes mellitus with diabetic neuropathy, unspecified; N39.0 Urinary tract infection, site not specified; E11.65 Type 2 diabetes mellitus with hyperglycemia; D53.9 Nutritional anemia, unspecified; N18.3 Chronic kidney disease, stage 3 (moderate); M79.7 Fibromyalgia; K58.9 Irritable bowel syndrome, unspecified; K21.9 Gastro-esophageal reflux disease without esophagitis; I12.9 Hypertensive chronic kidney disease with stage 1 through stage 4 chronic kidney disease, or unspecified chronic kidney disease; E03.9 Hypothyroidism, unspecified; F32.9 Major depressive disorder, single episode, unspecified; M48.061 Spinal stenosis, lumbar region without neurogenic claudication; G89.29 Other chronic pain; K44.9 Diaphragmatic hernia without obstruction or gangrene; Z96.649 Presence of unspecified artificial hip joint; F41.9 Anxiety disorder, unspecified; E66.9 Obesity, unspecified; I25.10 Atherosclerotic heart disease of native coronary artery without angina pectoris; M47.816 Spondylosis without myelopathy or radiculopathy, lumbar region; J44.9 Chronic obstructive pulmonary disease, unspecified; Z90.721 Acquired absence of ovaries, unilateral; Z87.440 Personal history of urinary (tract) infections; Z87.19 Personal history of other diseases of the digestive system; Z68.37 Body mass index [BMI] 37.0-37.9, adult; Z88.6 Allergy status to analgesic agent; Z88.1 Allergy status to other antibiotic agents; Z88.5 Allergy status to narcotic agent; Z88.8 Allergy status to other drugs, medicaments and biological substances; Z79.899 Other long term (current) drug therapy; Z79.82 Long term (current) use of aspirin; Z79.84 Long term (current) use of oral hypoglycemic drugs; Z79.4 Long term (current) use of insulin
CPT/HCPCS: 51702; 76770; 82570; 82962; 83036; 84300; 87081; 87086; 87449; 87899; 89050; 93005; 94640; 94644; 94645; 96372; 96374; 97110; 97162; 97530; 99285; J1100; J1815; J1885; J1956; J2920; J7050

== ENCOUNTER → 2017-07-13 | Outpatient (CLI) | payer MEDICARE, OTHER ==
[~2017-07-13] MED LIST changes: -ADV250 IH; +AMLO-511 PO; -ASCO500 PO; +ATEN25TA PO; +ATOR10TA84 PO; +AZEL137S8 NS; -BACL10TA PO; +BUDE10.2 IH; +COMP5 PO; -EFIN4SOL TP; +FURO20 PO; -GLUC1TAB21 PO; +ISOS5TAB5 PO; +LEVO500 PO; -MAGOX PO; -MONT10TA21 PO; -PHEN-934 PO; +PRED20 PO; +ROPI0.255 PO; -SITA100 PO; +TRAZ-144 PO; -TRAZ-147 PO; -[UNRECOGNIZED DRUG - CODE] PO
[2017-07-13 15:02] LABS: BASOPHILS % (AUTO) 0.1 % (0.0-2.0); EOSINOPHILS % (AUTO) 2.2 % (1.0-6.0); HEMATOCRIT 34.8 % (36-46); HEMOGLOBIN 11.6 g/dL (12.0-16.0); LYMPHOCYTES % (AUTO) 18.6 % (22.0-44.0); MEAN CORPUSCULAR HEMOGLOBIN 33.1 pg (26.0-34.0); MEAN CORPUSCULAR HGB CONC 33.4 G/dL (31.0-37.0); MEAN CORPUSCULAR VOLUME 99 fL (80-100); MONOCYTES # (AUTO) 0.6 K/uL (0.1-1.0); MONOCYTES % (AUTO) 5.3 % (2.0-9.0); NEUTROPHILS # (AUTO) 7.9 K/uL (1.8-7.7); NEUTROPHILS % (AUTO) 73.8 % (40.0-70.0); PLATELET COUNT (AUTO) 290 K/uL (150-450); RED BLOOD CELL COUNT(AUTO) 3.51 MIL/uL (4.00-5.20); RED CELL DISTRIBUTION WIDTH 13.5 % (11.5-14.5)
[2017-07-13 15:13] LABS: HEMOGLOBIN A1C 8.8 % (4.5-6.2)
[2017-07-13 15:28] LABS: ALBUMIN 3.2 g/dL (3.4-5.0); BILIRUBIN,TOTAL 0.4 mg/dL (0.1-1.0); CALCIUM, TOTAL 8.8 mg/dL (8.8-10.5); CREATININE 1.06 mg/dL (0.60-1.30); FREE THYROXINE INDEX 1.9 (1.4-4.5); POTASSIUM 4.1 mmol/L (3.5-5.1); THYROID STIMULATING HORMONE 1.25 uIU/mL (0.36-3.74); TOTAL PROTEIN, SERUM 6.4 g/dL (6.4-8.2)
== END | disposition home or self-care (01) ==
LOC: LABPV 13:47
PROVIDERS: ATTEND Internal Medicine
DX: E11.22 Type 2 diabetes mellitus with diabetic chronic kidney disease (principal); N18.3 Chronic kidney disease, stage 3 (moderate); E03.9 Hypothyroidism, unspecified; D64.9 Anemia, unspecified
CPT/HCPCS: 83036; 83540; 84436; 84443; 84479

== ENCOUNTER → 2017-07-18 | Outpatient (CLI) | payer MEDICARE, OTHER | END | disposition home or self-care (01) | LOC: RADPV 15:33 | PROVIDERS: ATTEND Internal Medicine Pulmonary Disease | DX: J98.11 Atelectasis (principal); K44.9 Diaphragmatic hernia without obstruction or gangrene | CPT/HCPCS: 71020 ==

== ENCOUNTER → 2017-07-25 | Outpatient (CLI) | payer MEDICARE, OTHER | END | disposition home or self-care (01) | LOC: RADPV 13:00 | PROVIDERS: ATTEND Internal Medicine | DX: I70.208 Unspecified atherosclerosis of native arteries of extremities, other extremity (principal); M79.642 Pain in left hand; M79.641 Pain in right hand | CPT/HCPCS: 93930 ==

== ENCOUNTER → 2017-07-25 | Outpatient (CLI) | payer MEDICARE, OTHER ==
[2017-07-25 16:33] LABS: BASOPHILS % (AUTO) 0.2 % (0.0-2.0); EOSINOPHILS % (AUTO) 0.2 % (1.0-6.0); HEMATOCRIT 35.5 % (36-46); LYMPHOCYTES # (AUTO) 1.7 K/uL (1.0-4.8); LYMPHOCYTES % (AUTO) 22.6 % (22.0-44.0); MEAN CORPUSCULAR HGB CONC 33.9 G/dL (31.0-37.0); MEAN CORPUSCULAR VOLUME 97 fL (80-100); MONOCYTES # (AUTO) 0.5 K/uL (0.1-1.0); MONOCYTES % (AUTO) 6.6 % (2.0-9.0); NEUTROPHILS # (AUTO) 5.3 K/uL (1.8-7.7); NEUTROPHILS % (AUTO) 70.4 % (40.0-70.0); PLATELET COUNT (AUTO) 291 K/uL (150-450); RED BLOOD CELL COUNT(AUTO) 3.64 MIL/uL (4.00-5.20); RED CELL DISTRIBUTION WIDTH 13.8 % (11.5-14.5); WHITE BLOOD COUNT (AUTO) 7.5 K/uL (4.5-11.0)
[2017-07-25 16:52] LABS: ALBUMIN 3.6 g/dL (3.4-5.0); BILIRUBIN,TOTAL 0.6 mg/dL (0.1-1.0); CALCIUM, TOTAL 9.1 mg/dL (8.8-10.5); CHOL/HDL RATIO 1.6 (3.9-5.7); CREATININE 1.13 mg/dL (0.60-1.30); THYROID STIMULATING HORMONE 0.94 uIU/mL (0.36-3.74); TOTAL PROTEIN, SERUM 6.4 g/dL (6.4-8.2)
== END | disposition home or self-care (01) ==
LOC: LABPV 13:09
PROVIDERS: ATTEND Internal Medicine Cardiovascular Disease
DX: I11.0 Hypertensive heart disease with heart failure (principal); I50.9 Heart failure, unspecified; E11.65 Type 2 diabetes mellitus with hyperglycemia; E55.9 Vitamin D deficiency, unspecified
CPT/HCPCS: 84439; 84443

== ENCOUNTER 2017-07-26 02:03 | Emergency (ER) | payer MEDICARE, OTHER ==
[~2017-07-26] VITALS: Ht 167.6 cm; Wt 113.6 kg
[~2017-07-26 02:03] MED LIST changes: -AMLO-511 PO; -ATOR10TA84 PO; -AZEL137S8 NS; -COMP5 PO; -FLUV50 PO; -FURO20 PO; -ISOS5TAB5 PO; -ROPI0.255 PO; -TRAZ-144 PO
[2017-07-26 02:22] LABS: GLUCOSE,POINT OF CARE 228 MG/DL (70-110)
[2017-07-26] MEDS ORDERED: LORazepam 2 MG TABLET PO ONE (02:45)
[2017-07-26 03:01] LABS: BASOPHILS % (AUTO) 0.2 % (0.0-2.0); EOSINOPHILS % (AUTO) 0.5 % (1.0-6.0); HEMATOCRIT 34.6 % (36-46); HEMOGLOBIN 11.5 g/dL (12.0-16.0); LYMPHOCYTES # (AUTO) 1.7 K/uL (1.0-4.8); LYMPHOCYTES % (AUTO) 23.3 % (22.0-44.0); MEAN CORPUSCULAR HEMOGLOBIN 32.7 pg (26.0-34.0); MEAN CORPUSCULAR HGB CONC 33.3 G/dL (31.0-37.0); MEAN CORPUSCULAR VOLUME 98 fL (80-100); MONOCYTES # (AUTO) 0.6 K/uL (0.1-1.0); NEUTROPHILS # (AUTO) 4.9 K/uL (1.8-7.7); PLATELET COUNT (AUTO) 293 K/uL (150-450); RED BLOOD CELL COUNT(AUTO) 3.52 MIL/uL (4.00-5.20); RED CELL DISTRIBUTION WIDTH 13.5 % (11.5-14.5); WHITE BLOOD COUNT (AUTO) 7.2 K/uL (4.5-11.0)
[2017-07-26 03:08] LABS: ANION GAP 9 mmol/L (8-16); CALCIUM, TOTAL 9.2 mg/dL (8.8-10.5); CARBON DIOXIDE 31 mmol/L (22-29); CHLORIDE 100 mmol/L (98-107); GLOMERULAR FILTR. RATE CALC 44 mL/min (>60); POTASSIUM 3.6 mmol/L (3.5-5.1); SODIUM SERUM 140 mmol/L (136-145); UREA NITROGEN, BLOOD 30 mg/dL (7-18)
[2017-07-26 03:13] LABS: ALANINE AMINOTRANSFERASE 33 U/L (12-78); ALBUMIN 3.4 g/dL (3.4-5.0); ASPARTATE AMINOTRANSFERASE 18 U/L (15-37); BILIRUBIN,TOTAL 0.5 mg/dL (0.1-1.0)
[2017-07-26 03:15] LABS: TROPONIN I < 0.02 ng/mL (0.00-0.05)
[2017-07-26 03:16] LABS: AMMONIA < 10 umol/L (11-32)
[2017-07-26 03:21] LABS: B-TYPE NATRIURETIC PEPTIDE 11 pg/mL (0-100)
[2017-07-26 04:52] LABS: APPEARANCE,URINE CLOUDY (CLEAR); GLUCOSE, URINE (UA) 100 mg/dL (NEGATIVE); KETONES,URINE NEGATIVE (NEGATIVE); LEUKOCYTE ESTERASE ,URINE MODERATE (NEGATIVE); OCCULT BLOOD,URINE SMALL (NEGATIVE); PH,URINE 6.5 (5.0-8.0); PROTEIN,URINE POS 1+ (NEGATIVE)
[2017-07-26 04:59] LABS: ADD UA MICROSCOPIC YES
[2017-07-26 05:17] LABS: WBC,URINE 26-50 /HPF (0-5)
[2017-07-26 05:18] LABS: SQUAMOUS EPITHELIAL CELL,UR Moderate /LPF (None Seen)
[2017-07-26] MEDS ORDERED: NITROFURANTOIN/NITROFURAN MAC 100 MG CAPSULE [MACROBID] PO ONE (05:30)
[2017-07-26 05:36] VITALS: BP 163/79
== END 2017-07-26 05:48 | disposition home or self-care (01) ==
LOC: EMS 02:05
DX: N39.0 Urinary tract infection, site not specified (principal); F41.9 Anxiety disorder, unspecified; J45.909 Unspecified asthma, uncomplicated; F32.9 Major depressive disorder, single episode, unspecified; K21.9 Gastro-esophageal reflux disease without esophagitis; E03.9 Hypothyroidism, unspecified; E11.9 Type 2 diabetes mellitus without complications; I10 Essential (primary) hypertension; Z79.4 Long term (current) use of insulin; Z79.82 Long term (current) use of aspirin; Z88.5 Allergy status to narcotic agent; Z88.8 Allergy status to other drugs, medicaments and biological substances; Z88.6 Allergy status to analgesic agent; Z88.1 Allergy status to other antibiotic agents; Z91.041 Radiographic dye allergy status
CPT/HCPCS: 36415; 80053; 80307; 81001; 82140; 82962; 83880; 84484; 85025; 87077; 87086; 87186; 93005; 99285; G0480

== ENCOUNTER 2017-07-29 02:38 | Emergency (ER) | payer MEDICARE, OTHER ==
[~2017-07-29] VITALS: Ht 162.6 cm; Wt 97.7 kg
[~2017-07-29 02:38] MED LIST changes: -LEVO500 PO
[2017-07-29 02:53] LABS: GLUCOSE,POINT OF CARE 318 MG/DL (70-110)
[2017-07-29] MEDS ORDERED: AMLO-511 PO (02:59)
[2017-07-29] MEDS ORDERED: ATOR10TA84 PO (02:59)
[2017-07-29] MEDS ORDERED: ISOS5TAB5 PO (02:59)
[2017-07-29] MEDS ORDERED: AZEL137S8 NS (02:59)
[2017-07-29] MEDS ORDERED: ROPI0.255 PO (02:59)
[2017-07-29] MEDS ORDERED: COMP5 PO (02:59)
[2017-07-29] MEDS ORDERED: FLUV50 PO (02:59)
[2017-07-29] MEDS ORDERED: FURO20 PO (02:59)
[2017-07-29] MEDS ORDERED: TRAZ-144 PO (02:59)
[2017-07-29] MEDS ORDERED: ALBUTEROL SULFATE 2.5 MG/0.5 ML NEB SOLUTION NEB ONE (03:00)
[2017-07-29] MEDS ORDERED: IPRATROPIUM BROMIDE 0.5 MG/2.5 ML NEB SOLUTION NEB ONE (03:00)
[2017-07-29 03:06] LABS: BASOPHILS % (AUTO) 0.2 % (0.0-2.0); HEMATOCRIT 33.5 % (36-46); HEMOGLOBIN 11.3 g/dL (12.0-16.0); LYMPHOCYTES # (AUTO) 1.9 K/uL (1.0-4.8); LYMPHOCYTES % (AUTO) 18.8 % (22.0-44.0); MEAN CORPUSCULAR HEMOGLOBIN 32.9 pg (26.0-34.0); MEAN CORPUSCULAR HGB CONC 33.7 G/dL (31.0-37.0); MEAN CORPUSCULAR VOLUME 98 fL (80-100); MONOCYTES # (AUTO) 0.4 K/uL (0.1-1.0); MONOCYTES % (AUTO) 4.1 % (2.0-9.0); NEUTROPHILS # (AUTO) 7.9 K/uL (1.8-7.7); NEUTROPHILS % (AUTO) 75.9 % (40.0-70.0); PLATELET COUNT (AUTO) 314 K/uL (150-450); RED BLOOD CELL COUNT(AUTO) 3.44 MIL/uL (4.00-5.20); RED CELL DISTRIBUTION WIDTH 13.5 % (11.5-14.5); WHITE BLOOD COUNT (AUTO) 10.4 K/uL (4.5-11.0)
[2017-07-29] MEDS ORDERED: INSULIN REGULAR, HUMAN 100 UNITS/ML IVP ONE (03:15)
[2017-07-29 03:24] LABS: ANION GAP 9 mmol/L (8-16); CALCIUM, TOTAL 8.7 mg/dL (8.8-10.5); CARBON DIOXIDE 30 mmol/L (22-29); CHLORIDE 97 mmol/L (98-107); CREATININE 1.18 mg/dL (0.60-1.30); GLOMERULAR FILTR. RATE CALC 45 mL/min (>60); SODIUM SERUM 136 mmol/L (136-145); UREA NITROGEN, BLOOD 28 mg/dL (7-18)
[2017-07-29 03:29] LABS: ALANINE AMINOTRANSFERASE 32 U/L (12-78); ALBUMIN 3.2 g/dL (3.4-5.0); ASPARTATE AMINOTRANSFERASE 13 U/L (15-37); BILIRUBIN,TOTAL 0.4 mg/dL (0.1-1.0); TOTAL PROTEIN, SERUM 6.5 g/dL (6.4-8.2)
[2017-07-29 03:46] LABS: THYROID STIMULATING HORMONE 1.61 uIU/mL (0.36-3.74)
[2017-07-29 05:07] LABS: APPEARANCE,URINE CLOUDY (CLEAR); GLUCOSE, URINE (UA) 500 mg/dL (NEGATIVE); KETONES,URINE NEGATIVE (NEGATIVE); LEUKOCYTE ESTERASE ,URINE TRACE (NEGATIVE); OCCULT BLOOD,URINE NEGATIVE (NEGATIVE); PROTEIN,URINE POS 1+ (NEGATIVE)
[2017-07-29 05:12] LABS: ADD UA MICROSCOPIC YES
[2017-07-29 05:30] LABS: RBC,URINE 0-2 /HPF (0-2); SQUAMOUS EPITHELIAL CELL,UR Few /LPF (None Seen)
[2017-07-29 06:41] VITALS: BP 179/83
[2017-07-29 06:53] LABS: GLUCOSE,POINT OF CARE 278 MG/DL (70-110)
== END 2017-07-29 06:51 | disposition home or self-care (01) ==
LOC: EMS 02:40
DX: F41.9 Anxiety disorder, unspecified (principal); M54.9 Dorsalgia, unspecified; G89.29 Other chronic pain; F32.9 Major depressive disorder, single episode, unspecified; K21.9 Gastro-esophageal reflux disease without esophagitis; I10 Essential (primary) hypertension; E03.9 Hypothyroidism, unspecified; E11.9 Type 2 diabetes mellitus without complications; J45.909 Unspecified asthma, uncomplicated; F11.90 Opioid use, unspecified, uncomplicated; Z79.4 Long term (current) use of insulin; Z88.6 Allergy status to analgesic agent; Z88.1 Allergy status to other antibiotic agents; Z88.5 Allergy status to narcotic agent; Z88.8 Allergy status to other drugs, medicaments and biological substances
CPT/HCPCS: 36415; 80053; 80307; 81001; 82962; 84443; 85025; 87077; 87086; 87186; 93005; 94640; 96374; 99285; G0480; J1815

== ENCOUNTER → 2017-08-07 | Outpatient (CLI) | payer MEDICARE, OTHER ==
[~2017-08-07] MED LIST changes: +AMLO-511 PO; +ATOR10TA84 PO; +AZEL137S8 NS; +COMP5 PO; +FLUV50 PO; +FURO20 PO; +ISOS5TAB5 PO; +ROPI0.255 PO; +TRAZ-144 PO
[2017-08-07 14:43] LABS: GLUCOSE, URINE (UA) >=1000 mg/dL (NEGATIVE); KETONES,URINE NEGATIVE (NEGATIVE); PROTEIN,URINE NEGATIVE (NEGATIVE)
[2017-08-07 14:58] LABS: ADD UA MICROSCOPIC YES; APPEARANCE,URINE HAZY (CLEAR); LEUKOCYTE ESTERASE ,URINE MODERATE (NEGATIVE); OCCULT BLOOD,URINE MODERATE (NEGATIVE)
[2017-08-07 14:59] LABS: SQUAMOUS EPITHELIAL CELL,UR Moderate /LPF (None Seen)
== END | disposition home or self-care (01) ==
LOC: LABPV 13:11
PROVIDERS: ATTEND Internal Medicine
DX: R30.0 Dysuria (principal)
CPT/HCPCS: 87086

== ENCOUNTER → 2017-08-15 | Outpatient (CLI) | payer MEDICARE, OTHER ==
[2017-08-15 16:21] LABS: BASOPHILS # (AUTO) 0.01 K/uL (0.00-0.20); BASOPHILS % (AUTO) 0.1 % (0.0-2.0); EOSINOPHILS # (AUTO) 0.09 K/uL (0.00-0.70); EOSINOPHILS % (AUTO) 0.96 % (1.0-6.0); HEMATOCRIT 38.9 % (36-46); HEMOGLOBIN 12.4 g/dL (12.0-16.0); LYMPHOCYTES # (AUTO) 1.9 K/uL (1.0-4.8); LYMPHOCYTES % (AUTO) 19.5 % (22.0-44.0); MEAN CORPUSCULAR HEMOGLOBIN 31.8 pg (26.0-34.0); MEAN CORPUSCULAR HGB CONC 31.9 G/dL (31.0-37.0); MEAN CORPUSCULAR VOLUME 100 fL (80-100); MONOCYTES # (AUTO) 0.5 K/uL (0.1-1.0); MONOCYTES % (AUTO) 5.3 % (2.0-9.0); NEUTROPHILS # (AUTO) 7.1 K/uL (1.8-7.7); NEUTROPHILS % (AUTO) 74.2 % (40.0-70.0); PLATELET COUNT (AUTO) 321 K/uL (150-450); RED BLOOD CELL COUNT(AUTO) 3.91 MIL/uL (4.00-5.20); RED CELL DISTRIBUTION WIDTH 14.6 % (11.5-14.5); WHITE BLOOD COUNT (AUTO) 9.6 K/uL (4.5-11.0)
[2017-08-15 16:43] LABS: ALBUMIN 3.1 g/dL (3.4-5.0); BILIRUBIN,TOTAL 0.3 mg/dL (0.1-1.0); CALCIUM, TOTAL 9.3 mg/dL (8.8-10.5); CREATININE 1.26 mg/dL (0.60-1.30); POTASSIUM 4.9 mmol/L (3.5-5.1); THYROID STIMULATING HORMONE 2.35 uIU/mL (0.36-3.74); TOTAL PROTEIN, SERUM 6.8 g/dL (6.4-8.2)
[2017-08-15 16:55] LABS: HEMOGLOBIN A1C 8.9 % (4.5-6.2)
== END | disposition home or self-care (01) ==
LOC: LABPV 12:59
PROVIDERS: ATTEND Internal Medicine
DX: E11.69 Type 2 diabetes mellitus with other specified complication (principal); Z79.899 Other long term (current) drug therapy
CPT/HCPCS: 83036; 83540; 84436; 84443; 84479

== ENCOUNTER → 2017-08-16 | Outpatient (CLI) | payer MEDICARE, OTHER ==
[2017-08-17 10:27] LABS: PROLACTIN 7.5 ng/mL (4.8-23.3)
[2017-08-17 17:00] LABS: ANTI NUCLEAR AB,DIRECT(SCREEN) Negative (Negative)
[2017-08-23 03:07] LABS: 17-D HYDROXYPROGESTERONE <10 ng/dL
== END | disposition home or self-care (01) ==
LOC: LABPV 11:49
PROVIDERS: ATTEND Student in an Organized Health Care Education/Training Program
DX: L64.8 Other androgenic alopecia (principal)
CPT/HCPCS: 82728; 83498; 83540; 83550; 84146; 84402; 84403; 86038

== ENCOUNTER → 2017-11-08 | Outpatient (CLI) | payer MEDICARE, OTHER ==
[2017-11-08 15:26] LABS: ALANINE AMINOTRANSFERASE 18 U/L (12-78); ALBUMIN 2.9 g/dL (3.4-5.0); ALKALINE PHOSPHATASE 66 U/L (46-116); ANION GAP 7 mmol/L (8-16); ASPARTATE AMINOTRANSFERASE 13 U/L (15-37); BILIRUBIN,TOTAL 0.4 mg/dL (0.1-1.0); CALCIUM, TOTAL 9.1 mg/dL (8.8-10.5); CARBON DIOXIDE 33 mmol/L (22-29); CHLORIDE 98 mmol/L (98-107); CHOL/HDL RATIO 2.2 (3.9-5.7); CHOLESTEROL 136 mg/dL (131-200); GLOMERULAR FILTR. RATE CALC > 60 mL/min (>60); GLUCOSE,RANDOM 220 mg/dL (70-110); HDL CHOLESTEROL 61 mg/dL (40-60); LDL CHOL (CALC.) 51 mg/dL (0-130); POTASSIUM 4.8 mmol/L (3.5-5.1); SODIUM SERUM 138 mmol/L (136-145); TOTAL PROTEIN, SERUM 6.5 g/dL (6.4-8.2); TRIGLYCERIDES 121 mg/dL (15-150); UREA NITROGEN, BLOOD 28 mg/dL (7-18)
[2017-11-08 16:20] LABS: HEMOGLOBIN A1C 10.9 % (4.5-6.2)
== END | disposition home or self-care (01) ==
LOC: LABPV 13:03
PROVIDERS: ATTEND Internal Medicine
DX: E11.69 Type 2 diabetes mellitus with other specified complication (principal); E78.5 Hyperlipidemia, unspecified
CPT/HCPCS: 83036

== ENCOUNTER 2018-01-16 10:04 | Emergency (ER) | payer MEDICARE, OTHER ==
[~2018-01-16] VITALS: Ht 162.6 cm; Wt 96.4 kg
[2018-01-16] MEDS ORDERED: IPRATROPIUM BROMIDE 0.5 MG/2.5 ML NEB SOLUTION NEB ONE (10:30)
[2018-01-16] MEDS ORDERED: ALBUTEROL SULFATE 5 MG/ML 20 ML NEB SOLN [BULK] NEB ONE (10:30)
[2018-01-16] MEDS ORDERED: INSULIN REGULAR, HUMAN 100 UNITS/ML IVP ONE ×3 (10:45→17:45)
[2018-01-16 11:01] LABS: BASOPHILS % (AUTO) 0.2 % (0.0-2.0); EOSINOPHILS % (AUTO) 2.3 % (1.0-6.0); HEMATOCRIT 36.4 % (36-46); HEMOGLOBIN 11.8 g/dL (12.0-16.0); LYMPHOCYTES # (AUTO) 2.5 K/uL (1.0-4.8); LYMPHOCYTES % (AUTO) 18.7 % (22.0-44.0); MEAN CORPUSCULAR HGB CONC 32.4 G/dL (31.0-37.0); MEAN CORPUSCULAR VOLUME 93 fL (80-100); MONOCYTES # (AUTO) 0.7 K/uL (0.1-1.0); MONOCYTES % (AUTO) 5.5 % (2.0-9.0); NEUTROPHILS # (AUTO) 9.6 K/uL (1.8-7.7); NEUTROPHILS % (AUTO) 73.3 % (40.0-70.0); PLATELET COUNT (AUTO) 319 K/uL (150-450); RED BLOOD CELL COUNT(AUTO) 3.94 MIL/uL (4.00-5.20); RED CELL DISTRIBUTION WIDTH 14.7 % (11.5-14.5)
[2018-01-16 11:13] LABS: ALBUMIN 3.1 g/dL (3.4-5.0); BILIRUBIN,TOTAL 0.3 mg/dL (0.1-1.0); CALCIUM, TOTAL 8.5 mg/dL (8.8-10.5); CREATININE 1.25 mg/dL (0.60-1.30); POTASSIUM 4.4 mmol/L (3.5-5.1); TOTAL PROTEIN, SERUM 6.3 g/dL (6.4-8.2)
[2018-01-16 11:37] LABS: GLUCOSE,POINT OF CARE 452 MG/DL (70-110)
[2018-01-16 12:04] LABS: APPEARANCE,URINE CLEAR (CLEAR); BILIRUBIN,URINE NEGATIVE (NEGATIVE); GLUCOSE, URINE (UA) >=1000 mg/dL (NEGATIVE); KETONES,URINE NEGATIVE (NEGATIVE); NITRATE,URINE NEGATIVE (NEGATIVE); OCCULT BLOOD,URINE NEGATIVE (NEGATIVE); PH,URINE 5.5 (5.0-8.0); PROTEIN,URINE NEGATIVE (NEGATIVE); UROBILINOGEN,URINE 0.2 mg/dL (<=1.0)
[2018-01-16 12:29] LABS: LEUKOCYTE ESTERASE ,URINE NEGATIVE (NEGATIVE)
[2018-01-16 12:35] LABS: RBC,URINE None Seen /HPF (0-2)
[2018-01-16 12:36] LABS: BACTERIA,URINE Rare /HPF (None Seen); SQUAMOUS EPITHELIAL CELL,UR Few /LPF (None Seen); YEAST,URINE Few /HPF (None Seen)
[2018-01-16 12:53] LABS: GLUCOSE,POINT OF CARE 489 MG/DL (70-110)
[2018-01-16 14:47] LABS: GLUCOSE,POINT OF CARE 393 MG/DL (70-110)
[2018-01-16 16:07] LABS: GLUCOSE,POINT OF CARE 366 MG/DL (70-110)
[2018-01-16] MEDS ORDERED: SODIUM CHLORIDE 0.9% 500 ML IV ONE (16:30)
[2018-01-16 17:33] LABS: GLUCOSE,POINT OF CARE 334 MG/DL (70-110)
[2018-01-16 18:27] LABS: GLUCOSE,POINT OF CARE 275 MG/DL (70-110)
[2018-01-16] MEDS ORDERED: ALBUTEROL SULFATE HFA 90 MCG/PUFF 8 GM INHALER IH ONE ×2 (19:05→19:15)
[2018-01-16 19:37] LABS: GLUCOSE,POINT OF CARE 276 MG/DL (70-110)
[2018-01-16 20:30] VITALS: BP 148/58
== END 2018-01-16 20:31 | disposition home or self-care (01) ==
LOC: EMS 10:06
DX: J45.901 Unspecified asthma with (acute) exacerbation (principal); E11.65 Type 2 diabetes mellitus with hyperglycemia; F32.9 Major depressive disorder, single episode, unspecified; I10 Essential (primary) hypertension; M79.7 Fibromyalgia; K21.9 Gastro-esophageal reflux disease without esophagitis; E03.9 Hypothyroidism, unspecified; Z79.899 Other long term (current) drug therapy; Z88.8 Allergy status to other drugs, medicaments and biological substances; Z88.5 Allergy status to narcotic agent; Z79.4 Long term (current) use of insulin
CPT/HCPCS: 36415; 71045; 80053; 81001; 82962; 83880; 84484; 85025; 87040; 87086; 93005; 94644; 96361; 96374; 96376; 99285; J1815; J7040; J3535

== ENCOUNTER 2018-02-06 20:56 | Emergency (ER) | payer MEDICARE, OTHER ==
[~2018-02-06] VITALS: Ht 162.6 cm; Wt 95.5 kg
[2018-02-06 21:07] LABS: GLUCOSE,POINT OF CARE 178 MG/DL (70-110)
[2018-02-06] MEDS ORDERED: [UNRECOGNIZED DRUG - CODE] PO (21:22)
[2018-02-06] MEDS ORDERED: NITR.4 SL (21:22)
[2018-02-06] MEDS ORDERED: EFIN4SOL TP (21:22)
[2018-02-06] MEDS ORDERED: MTH/1CAP7 PO (21:22)
[2018-02-06] MEDS ORDERED: INSLAN SQ (21:22)
[2018-02-06] MEDS ORDERED: GLUC1TAB21 PO (21:22)
[2018-02-06] MEDS ORDERED: IPRA3AMP4 NEB (21:22)
[2018-02-06] MEDS ORDERED: ATOR20TA86 PO (21:22)
[2018-02-06] MEDS ORDERED: FLUT16H NASAL (21:22)
[2018-02-06] MEDS ORDERED: MIRA25TA PO (21:22)
[2018-02-06] MEDS ORDERED: MAGN250T2 PO (21:22)
[2018-02-06] MEDS ORDERED: CILO100T PO (21:22)
[2018-02-06] MEDS ORDERED: SITA100 PO (21:22)
[2018-02-06] MEDS ORDERED: ASCO500 PO (21:22)
[2018-02-06] MEDS ORDERED: FERR-89 PO (21:22)
[2018-02-06] MEDS ORDERED: DIAZEPAM 2 MG TABLET PO ONE (21:30)
[2018-02-06] MEDS ORDERED: KETOROLAC TROMETHAMINE 60 MG/2 ML VIAL IM ONE (21:30)
[2018-02-06 21:53] VITALS: BP 145/75
== END 2018-02-06 22:11 | disposition home or self-care (01) ==
LOC: EMS 20:57
DX: M54.5 Low back pain (principal); G89.29 Other chronic pain; E66.01 Morbid (severe) obesity due to excess calories; J45.909 Unspecified asthma, uncomplicated; E11.9 Type 2 diabetes mellitus without complications; K21.9 Gastro-esophageal reflux disease without esophagitis; I10 Essential (primary) hypertension; E03.9 Hypothyroidism, unspecified; F11.90 Opioid use, unspecified, uncomplicated; Z68.36 Body mass index [BMI] 36.0-36.9, adult; Z79.4 Long term (current) use of insulin; Z88.6 Allergy status to analgesic agent; Z88.1 Allergy status to other antibiotic agents; Z88.5 Allergy status to narcotic agent; Z88.0 Allergy status to penicillin; Z88.8 Allergy status to other drugs, medicaments and biological substances
CPT/HCPCS: 82962; 96372; 99283; J1885

== ENCOUNTER 2018-03-11 14:07 | Emergency (ER) | payer MEDICARE, OTHER ==
[~2018-03-11] VITALS: Ht 162.6 cm; Wt 96.4 kg
[~2018-03-11 14:07] MED LIST changes: +ASCO500 PO; -ATEN25TA PO; -ATOR10TA84 PO; +ATOR20TA86 PO; +CILO100T PO; -COMP5 PO; +EFIN4SOL TP; +FERR-89 PO; +FLUT16H NASAL; -FURO20 PO; +GLUC1TAB21 PO; +IPRA3AMP23 NEB; -ISOS5TAB5 PO; +MAGN250T2 PO; +MIRA25TA PO; +MTH/1CAP7 PO; -MULT-1203 PO; +NITR.4 SL; +SITA100 PO; -TRAZ-144 PO; +TRAZ-219 PO; +[UNRECOGNIZED DRUG - CODE] PO
[2018-03-11] MEDS ORDERED: ALBUTEROL SULFATE 5 MG/ML 20 ML NEB SOLN [BULK] NEB ONE (15:45)
[2018-03-11] MEDS ORDERED: MethylPREDNISolone SOD SUCC 125 MG/2 ML VIAL IVP ONE (15:45)
[2018-03-11] MEDS ORDERED: IPRATROPIUM BROMIDE 0.5 MG/2.5 ML NEB SOLUTION NEB ONE (15:45)
[2018-03-11] MEDS ORDERED: KETOROLAC TROMETHAMINE 30 MG/ML VIAL IVP ONE (16:15)
[2018-03-11] MEDS ORDERED: SODIUM CHLORIDE 0.9% 1,000 ML IV ONE (16:15)
[2018-03-11] MEDS: ASPIRIN 81 MG CHEWABLE TABLET PO ONE ×2 (16:28→16:35)
[2018-03-11 16:52] LABS: BASOPHILS % (AUTO) 0.4 % (0.0-2.0); EOSINOPHILS % (AUTO) 7.1 % (1.0-6.0); HEMATOCRIT 35.1 % (36-46); HEMOGLOBIN 11.5 g/dL (12.0-16.0); LYMPHOCYTES # (AUTO) 2.4 K/uL (1.0-4.8); LYMPHOCYTES % (AUTO) 21.4 % (22.0-44.0); MEAN CORPUSCULAR HEMOGLOBIN 29.5 pg (26.0-34.0); MEAN CORPUSCULAR HGB CONC 32.9 G/dL (31.0-37.0); MEAN CORPUSCULAR VOLUME 90 fL (80-100); MONOCYTES # (AUTO) 0.6 K/uL (0.1-1.0); MONOCYTES % (AUTO) 5.4 % (2.0-9.0); NEUTROPHILS # (AUTO) 7.3 K/uL (1.8-7.7); NEUTROPHILS % (AUTO) 65.7 % (40.0-70.0); PLATELET COUNT (AUTO) 283 K/uL (150-450); RED BLOOD CELL COUNT(AUTO) 3.92 MIL/uL (4.00-5.20); RED CELL DISTRIBUTION WIDTH 15.9 % (11.5-14.5)
[2018-03-11 17:04] LABS: ANION GAP 9 mmol/L (8-16); CALCIUM, TOTAL 8.9 mg/dL (8.8-10.5); CARBON DIOXIDE 29 mmol/L (22-29); CHLORIDE 99 mmol/L (98-107); CREATININE 1.16 mg/dL (0.60-1.30); GLOMERULAR FILTR. RATE CALC 46 mL/min (>60); GLUCOSE,RANDOM 261 mg/dL (70-110); POTASSIUM 3.7 mmol/L (3.5-5.1); SODIUM SERUM 137 mmol/L (136-145); UREA NITROGEN, BLOOD 19 mg/dL (7-18)
[2018-03-11 17:08] LABS: B-TYPE NATRIURETIC PEPTIDE < 5 pg/mL (0-100)
[2018-03-11 17:10] LABS: ALANINE AMINOTRANSFERASE 16 U/L (12-78); ALBUMIN 3.1 g/dL (3.4-5.0); ALKALINE PHOSPHATASE 62 U/L (46-116); ASPARTATE AMINOTRANSFERASE 11 U/L (15-37); BILIRUBIN,TOTAL 0.3 mg/dL (0.1-1.0); CREATINE KINASE, TOTAL 52 U/L (26-192); TOTAL PROTEIN, SERUM 6.5 g/dL (6.4-8.2)
[2018-03-11] MEDS ORDERED: DiphenhydrAMINE HCL 50 MG/ML VIAL IVP ONE (19:00)
[2018-03-11] MEDS ORDERED: DIAZEPAM 5 MG/ML 2 ML SYRINGE IVP ONE (20:00)
[2018-03-11] MEDS ORDERED: ACETAMINOPHEN 500 MG TABLET PO ONE (20:00)
[2018-03-11 20:10] LABS: APPEARANCE,URINE TURBID (CLEAR); BILIRUBIN,URINE NEGATIVE (NEGATIVE); GLUCOSE, URINE (UA) 250 mg/dL (NEGATIVE); KETONES,URINE NEGATIVE (NEGATIVE); LEUKOCYTE ESTERASE ,URINE LARGE (NEGATIVE); NITRATE,URINE NEGATIVE (NEGATIVE); OCCULT BLOOD,URINE SMALL (NEGATIVE); PH,URINE 5.5 (5.0-8.0); PROTEIN,URINE TRACE (NEGATIVE); UROBILINOGEN,URINE 0.2 mg/dL (<=1.0)
[2018-03-11 20:41] LABS: BACTERIA,URINE Moderate /HPF (None Seen); RBC,URINE 0-2 /HPF (0-2); SQUAMOUS EPITHELIAL CELL,UR Many /LPF (None Seen); WBC,URINE >100 /HPF (0-5)
[2018-03-11 23:08] VITALS: BP 135/80
== END 2018-03-11 23:11 | disposition home or self-care (01) ==
LOC: EMS 14:09
DX: J45.909 Unspecified asthma, uncomplicated (principal); E11.65 Type 2 diabetes mellitus with hyperglycemia; F41.9 Anxiety disorder, unspecified; G89.29 Other chronic pain; F32.9 Major depressive disorder, single episode, unspecified; K21.9 Gastro-esophageal reflux disease without esophagitis; E03.9 Hypothyroidism, unspecified; I10 Essential (primary) hypertension; F11.90 Opioid use, unspecified, uncomplicated; Z79.4 Long term (current) use of insulin; Z88.1 Allergy status to other antibiotic agents; Z88.5 Allergy status to narcotic agent; Z88.0 Allergy status to penicillin; Z88.8 Allergy status to other drugs, medicaments and biological substances
CPT/HCPCS: 36415; 71045; 71275; 80053; 81001; 82550; 83880; 84484; 85025; 85379; 87086; 93005; 94644; 96361; 96374; 96375; 99285; J1200; J1885 ×2; J2930; J7030

== ENCOUNTER 2018-04-25 23:24 | Emergency (ER) | payer MEDICARE, OTHER ==
[~2018-04-25] VITALS: Ht 162.6 cm; Wt 99.5 kg
[2018-04-26 00:32] LABS: APPEARANCE,URINE TURBID (CLEAR); BILIRUBIN,URINE NEGATIVE (NEGATIVE); GLUCOSE, URINE (UA) NEGATIVE (NEGATIVE); KETONES,URINE NEGATIVE (NEGATIVE); LEUKOCYTE ESTERASE ,URINE LARGE (NEGATIVE); NITRATE,URINE NEGATIVE (NEGATIVE); OCCULT BLOOD,URINE LARGE (NEGATIVE); PH,URINE 5.5 (5.0-8.0); PROTEIN,URINE SEE CONFIRM (NEGATIVE); UROBILINOGEN,URINE 0.2 mg/dL (<=1.0)
[2018-04-26 00:58] LABS: BACTERIA,URINE Moderate /HPF (None Seen); SULFOSALICYLIC ACID,URINE 2+ (Negative); WBC,URINE 51-100 /HPF (0-5)
[2018-04-26 01:40] VITALS: BP 138/66
[2018-04-26 01:49] LABS: GLUCOSE,POINT OF CARE 143 MG/DL (70-110)
== END 2018-04-26 03:27 | disposition home or self-care (01) ==
LOC: EMS 23:25
DX: N39.0 Urinary tract infection, site not specified (principal); I10 Essential (primary) hypertension; E03.9 Hypothyroidism, unspecified; K21.9 Gastro-esophageal reflux disease without esophagitis; J45.909 Unspecified asthma, uncomplicated; E11.40 Type 2 diabetes mellitus with diabetic neuropathy, unspecified; F11.90 Opioid use, unspecified, uncomplicated; Z88.1 Allergy status to other antibiotic agents; Z88.5 Allergy status to narcotic agent; Z88.8 Allergy status to other drugs, medicaments and biological substances; Z79.4 Long term (current) use of insulin; Z79.82 Long term (current) use of aspirin; Z79.899 Other long term (current) drug therapy
CPT/HCPCS: 87086; 99284

== ENCOUNTER 2018-05-29 11:01 | Inpatient (IN) | payer MEDICARE, OTHER ==
[~2018-05-29] VITALS: Ht 162.6 cm; Wt 105.0 kg
[~2018-05-29 11:01] MED LIST changes: -HYDR-305 PO; +HYDR-4455 PO; -ROPI0.255 PO; +ROPI0.257 PO
[2018-05-29 11:24] LABS: GLUCOSE,POINT OF CARE 164 MG/DL (70-110)
[2018-05-29] MEDS ORDERED: SODIUM CHLORIDE 0.9% 1,000 ML IV ONE ×4 (11:24→15:15)
[2018-05-29] MEDS ORDERED: ACETAMINOPHEN 500 MG TABLET PO ONE (11:30)
[2018-05-29] MEDS ORDERED: FURO20 PO (11:38)
[2018-05-29] MEDS ORDERED: HEPA500041 INJ (11:38)
[2018-05-29] MEDS ORDERED: TAMS0.4C32 PO (11:38)
[2018-05-29] MEDS ORDERED: MONT10TA21 PO (11:38)
[2018-05-29] MEDS ORDERED: FAMO20 PO (11:38)
[2018-05-29] MEDS ORDERED: METF-960 PO (11:38)
[2018-05-29] MEDS ORDERED: CELE200 PO (11:38)
[2018-05-29] MEDS ORDERED: GLIP5 PO (11:38)
[2018-05-29] MEDS ORDERED: LOSA25TA16 PO (11:38)
[2018-05-29] MEDS ORDERED: BACL10TA PO (11:38)
[2018-05-29] MEDS ORDERED: IBUP-2071 PO (11:38)
[2018-05-29] MEDS ORDERED: FLUT16H NASAL (11:38)
[2018-05-29] MEDS ORDERED: IPRATROPIUM BROMIDE 0.5 MG/2.5 ML NEB SOLUTION NEB ONE (12:30)
[2018-05-29] MEDS ORDERED: ALBUTEROL SULFATE 5 MG/ML 20 ML NEB SOLN [BULK] NEB ONE (12:30)
[2018-05-29 12:34] LABS: BASOPHILS % (AUTO) 0.3 % (0.0-2.0); EOSINOPHILS % (AUTO) 0.2 % (1.0-6.0); HEMATOCRIT 34.8 % (36-46); HEMOGLOBIN 11.6 g/dL (12.0-16.0); LYMPHOCYTES # (AUTO) 1.3 K/uL (1.0-4.8); LYMPHOCYTES % (AUTO) 5.8 % (22.0-44.0); MEAN CORPUSCULAR HEMOGLOBIN 30.5 pg (26.0-34.0); MEAN CORPUSCULAR HGB CONC 33.3 G/dL (31.0-37.0); MEAN CORPUSCULAR VOLUME 92 fL (80-100); MONOCYTES # (AUTO) 1.5 K/uL (0.1-1.0); MONOCYTES % (AUTO) 6.7 % (2.0-9.0); NEUTROPHILS # (AUTO) 19.5 K/uL (1.8-7.7); PLATELET COUNT (AUTO) 277 K/uL (150-450); RED CELL DISTRIBUTION WIDTH 15.4 % (11.5-14.5)
[2018-05-29 12:45] LABS: PROTHROMBIN TIME 10.4 SEC (9.4-11.6)
[2018-05-29 12:48] LABS: CALCIUM, TOTAL 8.6 mg/dL (8.8-10.5); CREATININE 1.27 mg/dL (0.60-1.30); POTASSIUM 4.4 mmol/L (3.5-5.1)
[2018-05-29 12:56] LABS: LACTIC ACID 0.9 mmol/L (0.4-2.0)
[2018-05-29 13:12] LABS: ALBUMIN 2.8 g/dL (3.4-5.0); BILIRUBIN,TOTAL 0.5 mg/dL (0.1-1.0); TOTAL PROTEIN, SERUM 6.2 g/dL (6.4-8.2)
[2018-05-29] MEDS ORDERED: CefTRIAXone SODIUM 1 GM in DEXTROSE 5%-WATER 10 ML IV ONE (13:30)
[2018-05-29] MEDS ORDERED: ACETAMINOPHEN 325 MG TABLET PO PRN (13:45)
[2018-05-29 13:59] LABS: APPEARANCE,URINE CLOUDY (CLEAR); BILIRUBIN,URINE NEGATIVE (NEGATIVE); GLUCOSE, URINE (UA) NEGATIVE (NEGATIVE); KETONES,URINE NEGATIVE (NEGATIVE); LEUKOCYTE ESTERASE ,URINE SMALL (NEGATIVE); NITRATE,URINE NEGATIVE (NEGATIVE); OCCULT BLOOD,URINE TRACE (NEGATIVE); PROTEIN,URINE POS 1+ (NEGATIVE); UROBILINOGEN,URINE 0.2 mg/dL (<=1.0)
[2018-05-29 14:12] LABS: BACTERIA,URINE Moderate /HPF (None Seen); RBC,URINE 0-2 /HPF (0-2)
[2018-05-29] MEDS ORDERED: IPRATROPIUM BROMIDE 0.5 MG/2.5 ML NEB SOLUTION NEB SCH (15:00)
[2018-05-29] MEDS ORDERED: ALBUTEROL SULFATE 2.5 MG/0.5 ML NEB SOLUTION NEB SCH (15:00)
[2018-05-29] MEDS ORDERED: DEXTROSE 50%-WATER 25 GM/50 ML SYRINGE IVP PRN (15:15)
[2018-05-29] MEDS: ASPIRIN 81 MG CHEWABLE TABLET PO SCH (16:41)
[2018-05-29] MEDS: PredniSONE 20 MG TABLET PO SCH (16:41)
[2018-05-29] MEDS: HEPARIN SODIUM,PORCINE 5,000 UNITS/ML VIAL SQ SCH (16:46)
[2018-05-29] MEDS ORDERED: ROPINIRole HCL 0.25 MG TABLET PO SCH (17:00)
[2018-05-29] MEDS: ACETAMINOPHEN 325 MG TABLET PO PRN (20:34)
[2018-05-29 21:33] LABS: GLUCOSE,POINT OF CARE 384 MG/DL (70-110)
[2018-05-29] MEDS: ZOLPIDEM TARTRATE 5 MG TABLET PO PRN (21:34)
[2018-05-29] MEDS: INSULIN LISPRO 100 UNITS/ML SQ PRN (21:34)
[2018-05-29] MEDS: DOCUSATE SODIUM 100 MG CAPSULE PO SCH (21:34)
[2018-05-30] VITALS (7 sets, daily range): BP systolic 103–162; BP diastolic 52–91
[2018-05-30] MEDS: HEPARIN SODIUM,PORCINE 5,000 UNITS/ML VIAL SQ SCH ×4 (00:14→23:33)
[2018-05-30] MEDS: ALBUTEROL SULFATE 2.5 MG/0.5 ML NEB SOLUTION NEB PRN ×5 (00:27→20:51)
[2018-05-30] MEDS: IPRATROPIUM BROMIDE 0.5 MG/2.5 ML NEB SOLUTION NEB PRN ×5 (00:27→20:51)
[2018-05-30 00:59] LABS: GLUCOSE,POINT OF CARE 227 MG/DL (70-110)
[2018-05-30] MEDS ORDERED: HYDROCODONE/ACETAMINOPHEN 10-325 MG TABLET PO PRN (02:15)
[2018-05-30] MEDS: HYDROCODONE/ACETAMINOPHEN 10-325 MG TABLET PO PRN ×3 (03:00→23:31)
[2018-05-30 05:45] LABS: BASOPHILS % (AUTO) 0.1 % (0.0-2.0); EOSINOPHILS % (AUTO) 0 % (1.0-6.0); HEMATOCRIT 32.2 % (36-46); HEMOGLOBIN 10.8 g/dL (12.0-16.0); LYMPHOCYTES % (AUTO) 6.7 % (22.0-44.0); MEAN CORPUSCULAR HEMOGLOBIN 30.5 pg (26.0-34.0); MEAN CORPUSCULAR HGB CONC 33.5 G/dL (31.0-37.0); MEAN CORPUSCULAR VOLUME 91 fL (80-100); MONOCYTES # (AUTO) 0.5 K/uL (0.1-1.0); MONOCYTES % (AUTO) 3.2 % (2.0-9.0); NEUTROPHILS # (AUTO) 13.8 K/uL (1.8-7.7); PLATELET COUNT (AUTO) 256 K/uL (150-450); RED BLOOD CELL COUNT(AUTO) 3.54 MIL/uL (4.00-5.20); RED CELL DISTRIBUTION WIDTH 15.5 % (11.5-14.5)
[2018-05-30] MEDS: INSULIN LISPRO 100 UNITS/ML SQ PRN ×4 (06:10→21:38)
[2018-05-30 06:48] LABS: GLUCOMETER DEV NAME(LOC) 6N 2D; GLUCOSE,POINT OF CARE 210 MG/DL (70-110)
[2018-05-30] MEDS: DOCUSATE SODIUM 100 MG CAPSULE PO SCH ×2 (09:18→22:45)
[2018-05-30] MEDS: PredniSONE 20 MG TABLET PO SCH (09:18)
[2018-05-30] MEDS: ASPIRIN 81 MG CHEWABLE TABLET PO SCH (09:18)
[2018-05-30] MEDS: CefTRIAXone SODIUM 1 GM in DEXTROSE 5%-WATER 10 ML IV SCH (12:33)
[2018-05-30 13:09] LABS: GLUCOMETER DEV NAME(LOC) 6N 2D; GLUCOSE,POINT OF CARE 268 MG/DL (70-110)
[2018-05-30] MEDS: ROPINIRole HCL 0.25 MG TABLET PO SCH ×2 (14:31→21:09)
[2018-05-30] MEDS: MULTIVITAMINS WITH MINERALS, THERAPEUTIC TABLET PO SCH (17:20)
[2018-05-30 19:29] LABS: GLUCOMETER DEV NAME(LOC) 6N 2D; GLUCOSE,POINT OF CARE 327 MG/DL (70-110)
[2018-05-30] MEDS: ACETAMINOPHEN 325 MG TABLET PO PRN (21:12)
[2018-05-30] MEDS: ZOLPIDEM TARTRATE 5 MG TABLET PO PRN (22:31)
[2018-05-30 22:34] LABS: GLUCOMETER DEV NAME(LOC) 6N 1E; GLUCOSE,POINT OF CARE 265 MG/DL (70-110)
[2018-05-31] VITALS (7 sets, daily range): BP systolic 116–157; BP diastolic 55–78
[2018-05-31] MEDS: ALBUTEROL SULFATE 2.5 MG/0.5 ML NEB SOLUTION NEB PRN ×4 (00:52→13:16)
[2018-05-31] MEDS: IPRATROPIUM BROMIDE 0.5 MG/2.5 ML NEB SOLUTION NEB PRN ×4 (00:52→13:17)
[2018-05-31] MEDS: ACETAMINOPHEN 325 MG TABLET PO PRN ×3 (04:59→13:15)
[2018-05-31 06:24] LABS: GLUCOMETER DEV NAME(LOC) 6N 1E; GLUCOSE,POINT OF CARE 276 MG/DL (70-110)
[2018-05-31] MEDS: INSULIN LISPRO 100 UNITS/ML SQ PRN ×3 (06:52→22:23)
[2018-05-31] MEDS: MULTIVITAMINS WITH MINERALS, THERAPEUTIC TABLET PO SCH (08:41)
[2018-05-31] MEDS: DOCUSATE SODIUM 100 MG CAPSULE PO SCH ×3 (08:41→20:00)
[2018-05-31] MEDS: ROPINIRole HCL 0.25 MG TABLET PO SCH ×3 (08:41→20:00)
[2018-05-31] MEDS: HEPARIN SODIUM,PORCINE 5,000 UNITS/ML VIAL SQ SCH ×2 (08:42→15:07)
[2018-05-31] MEDS: PredniSONE 20 MG TABLET PO SCH (08:42)
[2018-05-31] MEDS: ASPIRIN 81 MG CHEWABLE TABLET PO SCH (08:42)
[2018-05-31] MEDS: CefTRIAXone SODIUM 1 GM in DEXTROSE 5%-WATER 10 ML IV SCH (13:15)
[2018-05-31] MEDS: SIMETHICONE 80 MG CHEWABLE TABLET CHEW PRN (13:20)
[2018-05-31] MEDS ORDERED: PANT40TA25 PO (14:45)
[2018-05-31] MEDS ORDERED: HEPA500018 SQ (14:48)
[2018-05-31] MEDS: IPRATROPIUM BROMIDE 0.5 MG/2.5 ML NEB SOLUTION NEB SCH ×3 (15:00→22:50)
[2018-05-31] MEDS: ALBUTEROL SULFATE 2.5 MG/0.5 ML NEB SOLUTION NEB SCH ×3 (15:00→22:50)
[2018-05-31] MEDS: PROCHLORPERAZINE MALEATE 10 MG TABLET PO PRN ×2 (16:13→21:29)
[2018-05-31 16:39] LABS: GLUCOMETER DEV NAME(LOC) 6N 1E; GLUCOSE,POINT OF CARE 392 MG/DL (70-110)
[2018-05-31] MEDS: FluvoxaMINE MALEATE 50 MG TABLET PO SCH (16:47)
[2018-05-31] MEDS: TraZODone HCL 50 MG TABLET PO SCH (20:00)
[2018-05-31] MEDS: ClonazePAM 0.5 MG TABLET PO SCH (20:00)
[2018-05-31] MEDS: HYDROCODONE/ACETAMINOPHEN 10-325 MG TABLET PO PRN (20:14)
[2018-05-31] MEDS: ZOLPIDEM TARTRATE 5 MG TABLET PO PRN (22:20)
[2018-06-01] MEDS: HEPARIN SODIUM,PORCINE 5,000 UNITS/ML VIAL SQ SCH ×4 (00:04→23:14)
[2018-06-01] MEDS: IPRATROPIUM BROMIDE 0.5 MG/2.5 ML NEB SOLUTION NEB SCH ×7 (03:00→22:34)
[2018-06-01] MEDS: ALBUTEROL SULFATE 2.5 MG/0.5 ML NEB SOLUTION NEB SCH ×7 (03:00→22:34)
[2018-06-01 04:14] LABS: GLUCOMETER DEV NAME(LOC) 6N 2D; GLUCOSE,POINT OF CARE 312 MG/DL (70-110)
[2018-06-01 04:15] VITALS: BP 149/62
[2018-06-01] MEDS: HYDROCODONE/ACETAMINOPHEN 10-325 MG TABLET PO PRN ×2 (04:16→23:13)
[2018-06-01] MEDS: INSULIN LISPRO 100 UNITS/ML SQ PRN ×4 (06:21→21:21)
[2018-06-01] MEDS: PANTOPRAZOLE SODIUM 40 MG DR TABLET PO SCH (06:39)
[2018-06-01 07:01] LABS: BASOPHILS % (AUTO) 0.2 % (0.0-2.0); EOSINOPHILS % (AUTO) 0.9 % (1.0-6.0); HEMATOCRIT 34.3 % (36-46); HEMOGLOBIN 11.4 g/dL (12.0-16.0); LYMPHOCYTES # (AUTO) 1.7 K/uL (1.0-4.8); LYMPHOCYTES % (AUTO) 27.2 % (22.0-44.0); MEAN CORPUSCULAR HEMOGLOBIN 30.7 pg (26.0-34.0); MEAN CORPUSCULAR HGB CONC 33.3 G/dL (31.0-37.0); MEAN CORPUSCULAR VOLUME 92 fL (80-100); MONOCYTES # (AUTO) 0.8 K/uL (0.1-1.0); MONOCYTES % (AUTO) 12.1 % (2.0-9.0); NEUTROPHILS # (AUTO) 3.7 K/uL (1.8-7.7); NEUTROPHILS % (AUTO) 59.6 % (40.0-70.0); PLATELET COUNT (AUTO) 300 K/uL (150-450); RED BLOOD CELL COUNT(AUTO) 3.73 MIL/uL (4.00-5.20)
[2018-06-01 07:20] VITALS: BP 142/69
[2018-06-01 07:33] LABS: CALCIUM, TOTAL 9.3 mg/dL (8.8-10.5); CREATININE 0.95 mg/dL (0.60-1.30); MAGNESIUM 1.7 mg/dL (1.80-2.40); POTASSIUM 4.4 mmol/L (3.5-5.1)
[2018-06-01] MEDS: ClonazePAM 0.5 MG TABLET PO SCH ×2 (08:35→20:40)
[2018-06-01] MEDS: PredniSONE 20 MG TABLET PO SCH (08:36)
[2018-06-01] MEDS: ROPINIRole HCL 0.25 MG TABLET PO SCH ×3 (08:36→20:40)
[2018-06-01] MEDS: FluvoxaMINE MALEATE 50 MG TABLET PO SCH (08:36)
[2018-06-01] MEDS: ASPIRIN 81 MG CHEWABLE TABLET PO SCH (08:36)
[2018-06-01] MEDS: MULTIVITAMINS WITH MINERALS, THERAPEUTIC TABLET PO SCH (08:37)
[2018-06-01] MEDS: DOCUSATE SODIUM 100 MG CAPSULE PO SCH ×2 (09:00→20:40)
[2018-06-01 11:20] VITALS: BP_SYST 145; BP_SYST 175; BP_DIAS 66; BP_DIAS 70
[2018-06-01] MEDS: CefTRIAXone SODIUM 1 GM in DEXTROSE 5%-WATER 10 ML IV SCH (12:58)
[2018-06-01 13:44] LABS: GLUCOMETER DEV NAME(LOC) 6N 2D; GLUCOSE,POINT OF CARE 363 MG/DL (70-110)
[2018-06-01 13:44] LABS: GLUCOMETER DEV NAME(LOC) 6N 2D; GLUCOSE,POINT OF CARE 234 MG/DL (70-110)
[2018-06-01] MEDS: ACETAMINOPHEN 325 MG TABLET PO PRN (14:16)
[2018-06-01 14:32] VITALS: BP 138/65
[2018-06-01] MEDS ORDERED: MAGNESIUM SULFATE 4 GM/WATER 100 ML IV PRN (15:45)
[2018-06-01] MEDS ORDERED: MAGNESIUM SULFATE 2 GM/WATER 50 ML IV PRN (15:45)
[2018-06-01] MEDS: MAGNESIUM OXIDE 400 MG TABLET PO PRN ×2 (16:30→20:40)
[2018-06-01] MEDS: CARBOXYMETHYLCELLULOSE SODIUM 0.4 ML OPHTHALMIC SOLUTION [PF] OU PRN (16:30)
[2018-06-01 16:45] LABS: ALBUMIN 2.8 g/dL (3.4-5.0)
[2018-06-01 17:24] LABS: GLUCOMETER DEV NAME(LOC) 6N 1E; GLUCOSE,POINT OF CARE 345 MG/DL (70-110)
[2018-06-01 19:57] VITALS: BP 145/76
[2018-06-01] MEDS: TraZODone HCL 50 MG TABLET PO SCH (20:40)
[2018-06-01 21:04] LABS: GLUCOMETER DEV NAME(LOC) 6N 2D; GLUCOSE,POINT OF CARE 373 MG/DL (70-110)
[2018-06-01 23:04] VITALS: BP 141/71
[2018-06-01] MEDS: ZOLPIDEM TARTRATE 5 MG TABLET PO PRN (23:18)
[2018-06-02] MEDS: SIMETHICONE 80 MG CHEWABLE TABLET CHEW PRN (00:17)
[2018-06-02] MEDS: MAGNESIUM OXIDE 400 MG TABLET PO PRN ×4 (01:13→17:51)
[2018-06-02] MEDS: CARBOXYMETHYLCELLULOSE SODIUM 0.4 ML OPHTHALMIC SOLUTION [PF] OU PRN ×2 (01:13→08:42)
[2018-06-02] MEDS: ALBUTEROL SULFATE 2.5 MG/0.5 ML NEB SOLUTION NEB SCH ×6 (03:01→22:32)
[2018-06-02] MEDS: IPRATROPIUM BROMIDE 0.5 MG/2.5 ML NEB SOLUTION NEB SCH ×6 (03:01→22:33)
[2018-06-02 05:50] VITALS: BP 142/54
[2018-06-02 05:54] LABS: GLUCOMETER DEV NAME(LOC) 6N 1E; GLUCOSE,POINT OF CARE 238 MG/DL (70-110)
[2018-06-02] MEDS: PANTOPRAZOLE SODIUM 40 MG DR TABLET PO SCH (06:17)
[2018-06-02] MEDS: INSULIN LISPRO 100 UNITS/ML SQ PRN ×4 (06:18→20:31)
[2018-06-02 07:20] VITALS: BP 154/80
[2018-06-02] MEDS: DOCUSATE SODIUM 100 MG CAPSULE PO SCH ×2 (08:26→20:24)
[2018-06-02] MEDS: MULTIVITAMINS WITH MINERALS, THERAPEUTIC TABLET PO SCH (08:26)
[2018-06-02] MEDS: PredniSONE 20 MG TABLET PO SCH (08:26)
[2018-06-02] MEDS: FluvoxaMINE MALEATE 50 MG TABLET PO SCH (08:26)
[2018-06-02] MEDS: ROPINIRole HCL 0.25 MG TABLET PO SCH ×3 (08:26→20:24)
[2018-06-02] MEDS: ClonazePAM 0.5 MG TABLET PO SCH ×2 (08:38→20:24)
[2018-06-02] MEDS: ASPIRIN 81 MG CHEWABLE TABLET PO SCH (08:38)
[2018-06-02] MEDS: HEPARIN SODIUM,PORCINE 5,000 UNITS/ML VIAL SQ SCH ×3 (08:39→23:57)
[2018-06-02] MEDS: HYDROCODONE/ACETAMINOPHEN 10-325 MG TABLET PO PRN ×2 (08:41→22:52)
[2018-06-02 11:20] VITALS: BP 137/52
[2018-06-02] MEDS: CefTRIAXone SODIUM 1 GM in DEXTROSE 5%-WATER 10 ML IV SCH (13:23)
[2018-06-02] MEDS: ACETAMINOPHEN 325 MG TABLET PO PRN (13:29)
[2018-06-02 15:10] VITALS: BP 146/56
[2018-06-02 17:04] LABS: GLUCOMETER DEV NAME(LOC) 6N 1E; GLUCOSE,POINT OF CARE 397 MG/DL (70-110)
[2018-06-02 17:04] LABS: GLUCOMETER DEV NAME(LOC) 6N 1E; GLUCOSE,POINT OF CARE 355 MG/DL (70-110)
[2018-06-02 20:17] VITALS: BP 142/65
[2018-06-02] MEDS: TraZODone HCL 50 MG TABLET PO SCH (20:24)
[2018-06-02] MEDS ORDERED: INSULIN GLARGINE,HUM.REC.ANLOG 100 UNITS/ML SQ SCH (21:00)
[2018-06-02] MEDS ORDERED: INSULIN LISPRO 100 UNITS/ML SQ ONE (22:00)
[2018-06-02 22:15] LABS: GLUCOMETER DEV NAME(LOC) 6N 1E; GLUCOSE,POINT OF CARE 423 MG/DL (70-110)
[2018-06-02] MEDS: ZOLPIDEM TARTRATE 5 MG TABLET PO PRN (22:52)
[2018-06-02 23:26] VITALS: BP 154/92
[2018-06-03] MEDS: IPRATROPIUM BROMIDE 0.5 MG/2.5 ML NEB SOLUTION NEB SCH ×6 (03:00→22:48)
[2018-06-03] MEDS: ALBUTEROL SULFATE 2.5 MG/0.5 ML NEB SOLUTION NEB SCH ×6 (03:00→22:48)
[2018-06-03 04:09] VITALS: BP 178/93
[2018-06-03 04:23] VITALS: BP 152/69
[2018-06-03] MEDS: INSULIN LISPRO 100 UNITS/ML SQ PRN ×4 (05:58→21:04)
[2018-06-03] MEDS: PANTOPRAZOLE SODIUM 40 MG DR TABLET PO SCH (05:58)
[2018-06-03 06:39] LABS: GLUCOMETER DEV NAME(LOC) 6N 2D; GLUCOSE,POINT OF CARE 233 MG/DL (70-110)
[2018-06-03 07:09] LABS: BASOPHILS % (AUTO) 0.3 % (0.0-2.0); EOSINOPHILS % (AUTO) 1.2 % (1.0-6.0); HEMATOCRIT 33.6 % (36-46); HEMOGLOBIN 11.3 g/dL (12.0-16.0); LYMPHOCYTES # (AUTO) 2.9 K/uL (1.0-4.8); LYMPHOCYTES % (AUTO) 27.6 % (22.0-44.0); MEAN CORPUSCULAR HEMOGLOBIN 30.4 pg (26.0-34.0); MEAN CORPUSCULAR HGB CONC 33.7 G/dL (31.0-37.0); MEAN CORPUSCULAR VOLUME 90 fL (80-100); MONOCYTES # (AUTO) 0.6 K/uL (0.1-1.0); MONOCYTES % (AUTO) 6.1 % (2.0-9.0); NEUTROPHILS # (AUTO) 6.9 K/uL (1.8-7.7); NEUTROPHILS % (AUTO) 64.8 % (40.0-70.0); PLATELET COUNT (AUTO) 318 K/uL (150-450); RED BLOOD CELL COUNT(AUTO) 3.73 MIL/uL (4.00-5.20); RED CELL DISTRIBUTION WIDTH 15.4 % (11.5-14.5)
[2018-06-03 07:15] LABS: CREATININE 1.06 mg/dL (0.60-1.30); POTASSIUM 4.5 mmol/L (3.5-5.1)
[2018-06-03 07:34] VITALS: BP 143/66
[2018-06-03] MEDS: DOCUSATE SODIUM 100 MG CAPSULE PO SCH ×2 (08:11→20:03)
[2018-06-03] MEDS: HEPARIN SODIUM,PORCINE 5,000 UNITS/ML VIAL SQ SCH ×2 (08:11→15:34)
[2018-06-03] MEDS: ClonazePAM 0.5 MG TABLET PO SCH ×3 (08:11→20:03)
[2018-06-03] MEDS: ROPINIRole HCL 0.25 MG TABLET PO SCH ×3 (08:11→20:02)
[2018-06-03] MEDS: MULTIVITAMINS WITH MINERALS, THERAPEUTIC TABLET PO SCH (08:11)
[2018-06-03] MEDS: PredniSONE 20 MG TABLET PO SCH (08:11)
[2018-06-03] MEDS: ACETAMINOPHEN 325 MG TABLET PO PRN ×2 (08:11→15:34)
[2018-06-03] MEDS: ASPIRIN 81 MG CHEWABLE TABLET PO SCH (08:12)
[2018-06-03] MEDS: FluvoxaMINE MALEATE 50 MG TABLET PO SCH (08:12)
[2018-06-03] MEDS ORDERED: AmLODIPine BESYLATE 5 MG TABLET PO ONE (10:30)
[2018-06-03 11:26] VITALS: BP 134/60
[2018-06-03] MEDS: MethylPREDNISolone SOD SUCC 125 MG/2 ML VIAL IVP SCH ×2 (12:06→17:18)
[2018-06-03] MEDS: CefTRIAXone SODIUM 1 GM in DEXTROSE 5%-WATER 10 ML IV SCH (12:06)
[2018-06-03 14:44] LABS: GLUCOMETER DEV NAME(LOC) 6N 2D; GLUCOSE,POINT OF CARE 391 MG/DL (70-110)
[2018-06-03 15:18] VITALS: BP 136/66
[2018-06-03] MEDS ORDERED: DEXTROSE 50%-WATER 25 GM/50 ML SYRINGE IVP PRN (17:15)
[2018-06-03 19:00] VITALS: BP 147/78
[2018-06-03 19:50] LABS: GLUCOMETER DEV NAME(LOC) 6N 1E; GLUCOSE,POINT OF CARE 476 MG/DL (70-110)
[2018-06-03] MEDS: TraZODone HCL 50 MG TABLET PO SCH (20:02)
[2018-06-03] MEDS: CARBOXYMETHYLCELLULOSE SODIUM 0.4 ML OPHTHALMIC SOLUTION [PF] OU PRN (20:12)
[2018-06-03] MEDS ORDERED: INSULIN GLARGINE,HUM.REC.ANLOG 100 UNITS/ML SQ SCH (21:00)
[2018-06-03] MEDS: MAGNESIUM HYDROXIDE SUSPENSION 30 ML UDCUP PO PRN (21:30)
[2018-06-03] MEDS: ZOLPIDEM TARTRATE 5 MG TABLET PO PRN (22:43)
[2018-06-03] MEDS: HYDROCODONE/ACETAMINOPHEN 10-325 MG TABLET PO PRN (22:43)
[2018-06-04] VITALS (7 sets, daily range): BP systolic 122–184; BP diastolic 61–83
[2018-06-04] MEDS: MethylPREDNISolone SOD SUCC 125 MG/2 ML VIAL IVP SCH ×2 (00:29→05:24)
[2018-06-04] MEDS: HEPARIN SODIUM,PORCINE 5,000 UNITS/ML VIAL SQ SCH ×3 (00:30→16:39)
[2018-06-04] MEDS: ALBUTEROL SULFATE 2.5 MG/0.5 ML NEB SOLUTION NEB SCH ×6 (02:52→22:44)
[2018-06-04] MEDS: IPRATROPIUM BROMIDE 0.5 MG/2.5 ML NEB SOLUTION NEB SCH ×6 (02:52→22:44)
[2018-06-04] MEDS: PANTOPRAZOLE SODIUM 40 MG DR TABLET PO SCH (05:24)
[2018-06-04] MEDS: INSULIN LISPRO 100 UNITS/ML SQ PRN ×3 (05:30→20:58)
[2018-06-04] MEDS: ClonazePAM 0.5 MG TABLET PO SCH ×3 (08:31→20:46)
[2018-06-04] MEDS: AmLODIPine BESYLATE 5 MG TABLET PO SCH (08:31)
[2018-06-04] MEDS: ASPIRIN 81 MG CHEWABLE TABLET PO SCH (08:31)
[2018-06-04] MEDS: MULTIVITAMINS WITH MINERALS, THERAPEUTIC TABLET PO SCH (08:31)
[2018-06-04] MEDS: DOCUSATE SODIUM 100 MG CAPSULE PO SCH ×2 (08:32→20:47)
[2018-06-04] MEDS: PredniSONE 20 MG TABLET PO SCH (08:32)
[2018-06-04] MEDS: FluvoxaMINE MALEATE 50 MG TABLET PO SCH (08:32)
[2018-06-04] MEDS: ROPINIRole HCL 0.25 MG TABLET PO SCH ×3 (08:34→20:47)
[2018-06-04] MEDS: ACETAMINOPHEN 325 MG TABLET PO PRN (08:42)
[2018-06-04] MEDS: CARBOXYMETHYLCELLULOSE SODIUM 0.4 ML OPHTHALMIC SOLUTION [PF] OU PRN ×2 (08:42→22:45)
[2018-06-04 11:30] LABS: GLUCOMETER DEV NAME(LOC) 6N 2D; GLUCOSE,POINT OF CARE 425 MG/DL (70-110)
[2018-06-04 11:32] LABS: GLUCOMETER DEV NAME(LOC) 6N 1E; GLUCOSE,POINT OF CARE 372 MG/DL (70-110)
[2018-06-04] MEDS: HYDROCODONE/ACETAMINOPHEN 10-325 MG TABLET PO PRN ×2 (14:14→22:44)
[2018-06-04] MEDS: CefTRIAXone SODIUM 1 GM in DEXTROSE 5%-WATER 10 ML IV SCH (14:15)
[2018-06-04 14:24] LABS: GLUCOMETER DEV NAME(LOC) 6N 2D; GLUCOSE,POINT OF CARE 346 MG/DL (70-110)
[2018-06-04] MEDS ORDERED: INSULIN LISPRO 100 UNITS/ML SQ ONE (17:15)
[2018-06-04 19:44] LABS: GLUCOMETER DEV NAME(LOC) 6N 2D; GLUCOSE,POINT OF CARE 555 MG/DL (70-110)
[2018-06-04] MEDS: TraZODone HCL 50 MG TABLET PO SCH (20:47)
[2018-06-04] MEDS: MAGNESIUM HYDROXIDE SUSPENSION 30 ML UDCUP PO PRN (20:47)
[2018-06-04] MEDS ORDERED: INSULIN GLARGINE,HUM.REC.ANLOG 100 UNITS/ML SQ SCH (21:00)
[2018-06-04] MEDS: ZOLPIDEM TARTRATE 5 MG TABLET PO PRN (22:44)
[2018-06-05] MEDS: HEPARIN SODIUM,PORCINE 5,000 UNITS/ML VIAL SQ SCH ×3 (00:09→16:41)
[2018-06-05] MEDS: ALBUTEROL SULFATE 2.5 MG/0.5 ML NEB SOLUTION NEB SCH ×6 (02:54→23:07)
[2018-06-05] MEDS: IPRATROPIUM BROMIDE 0.5 MG/2.5 ML NEB SOLUTION NEB SCH ×6 (02:54→23:07)
[2018-06-05 04:55] VITALS: BP 135/55
[2018-06-05] MEDS: PANTOPRAZOLE SODIUM 40 MG DR TABLET PO SCH (05:46)
[2018-06-05] MEDS: INSULIN LISPRO 100 UNITS/ML SQ PRN ×3 (05:47→21:45)
[2018-06-05 06:39] LABS: GLUCOMETER DEV NAME(LOC) 6N 2D; GLUCOSE,POINT OF CARE 406 MG/DL (70-110)
[2018-06-05 06:40] LABS: GLUCOMETER DEV NAME(LOC) 6N 1E; GLUCOSE,POINT OF CARE 181 MG/DL (70-110)
[2018-06-05 07:20] VITALS: BP 130/54
[2018-06-05] MEDS: FluvoxaMINE MALEATE 50 MG TABLET PO SCH (08:20)
[2018-06-05] MEDS: ClonazePAM 0.5 MG TABLET PO SCH ×3 (08:20→21:24)
[2018-06-05] MEDS: ROPINIRole HCL 0.25 MG TABLET PO SCH ×3 (08:21→21:24)
[2018-06-05] MEDS: ASPIRIN 81 MG CHEWABLE TABLET PO SCH (08:21)
[2018-06-05] MEDS: DOCUSATE SODIUM 100 MG CAPSULE PO SCH ×2 (08:21→21:24)
[2018-06-05] MEDS: AmLODIPine BESYLATE 5 MG TABLET PO SCH (08:21)
[2018-06-05] MEDS: PredniSONE 20 MG TABLET PO SCH (08:21)
[2018-06-05] MEDS: MULTIVITAMINS WITH MINERALS, THERAPEUTIC TABLET PO SCH (08:21)
[2018-06-05] MEDS: ACETAMINOPHEN 325 MG TABLET PO PRN ×2 (08:22→16:40)
[2018-06-05 11:37] VITALS: BP 137/64
[2018-06-05] MEDS: CefTRIAXone SODIUM 1 GM in DEXTROSE 5%-WATER 10 ML IV SCH (14:16)
[2018-06-05 15:24] LABS: GLUCOMETER DEV NAME(LOC) 6N 2D; GLUCOSE,POINT OF CARE 264 MG/DL (70-110)
[2018-06-05 15:38] VITALS: BP 127/54
[2018-06-05] MEDS: BENZONATATE 100 MG CAPSULE PO SCH (16:40)
[2018-06-05 17:10] LABS: BASOPHILS % (AUTO) 0.6 % (0.0-2.0); EOSINOPHILS % (AUTO) 0 % (1.0-6.0); HEMATOCRIT 33.8 % (36-46); HEMOGLOBIN 10.9 g/dL (12.0-16.0); LYMPHOCYTES # (AUTO) 1.1 K/uL (1.0-4.8); LYMPHOCYTES % (AUTO) 9.5 % (22.0-44.0); MEAN CORPUSCULAR HEMOGLOBIN 30.2 pg (26.0-34.0); MEAN CORPUSCULAR HGB CONC 32.3 G/dL (31.0-37.0); MEAN CORPUSCULAR VOLUME 93 fL (80-100); MONOCYTES # (AUTO) 0.3 K/uL (0.1-1.0); MONOCYTES % (AUTO) 2.5 % (2.0-9.0); NEUTROPHILS # (AUTO) 9.9 K/uL (1.8-7.7); PLATELET COUNT (AUTO) 362 K/uL (150-450); RED BLOOD CELL COUNT(AUTO) 3.62 MIL/uL (4.00-5.20); RED CELL DISTRIBUTION WIDTH 15.4 % (11.5-14.5)
[2018-06-05 17:14] LABS: NEUTROPHILS % (AUTO) 87.4 % (40.0-70.0)
[2018-06-05 17:28] LABS: ALBUMIN 2.8 g/dL (3.4-5.0); BILIRUBIN,TOTAL 0.2 mg/dL (0.1-1.0); CALCIUM, TOTAL 9.1 mg/dL (8.8-10.5); CREATININE 1.18 mg/dL (0.60-1.30); POTASSIUM 5.3 mmol/L (3.5-5.1); TOTAL PROTEIN, SERUM 6.4 g/dL (6.4-8.2)
[2018-06-05] MEDS ORDERED: INSULIN LISPRO 100 UNITS/ML SQ ONE (17:30)
[2018-06-05] MEDS: MethylPREDNISolone SOD SUCC 125 MG/2 ML VIAL IVP SCH (18:03)
[2018-06-05 19:00] VITALS: BP 150/72
[2018-06-05 19:05] LABS: GLUCOMETER DEV NAME(LOC) 6N 2D; GLUCOSE,POINT OF CARE 443 MG/DL (70-110)
[2018-06-05] MEDS: BUDESONIDE 0.5 MG/2 ML NEB SOLUTION NEB SCH (19:35)
[2018-06-05] MEDS ORDERED: SODIUM POLYSTYRENE SULFONATE 15 GM/60 ML SUSPENSION BOTTLE PO ONE (21:15)
[2018-06-05] MEDS: TraZODone HCL 50 MG TABLET PO SCH (21:24)
[2018-06-05] MEDS: GuaiFENesin SR 600 MG ER TABLET PO SCH (21:24)
[2018-06-05] MEDS: CARBOXYMETHYLCELLULOSE SODIUM 0.4 ML OPHTHALMIC SOLUTION [PF] OU PRN (21:41)
[2018-06-05] MEDS: INSULIN GLARGINE,HUM.REC.ANLOG 100 UNITS/ML SQ SCH (21:44)
[2018-06-05 21:54] LABS: GLUCOMETER DEV NAME(LOC) 6N 1E; GLUCOSE,POINT OF CARE 402 MG/DL (70-110)
[2018-06-05] MEDS: HYDROCODONE/ACETAMINOPHEN 10-325 MG TABLET PO PRN (22:27)
[2018-06-05] MEDS: ZOLPIDEM TARTRATE 5 MG TABLET PO PRN (22:27)
[2018-06-06] VITALS (7 sets, daily range): BP systolic 128–153; BP diastolic 53–98
[2018-06-06] MEDS: BENZONATATE 100 MG CAPSULE PO SCH ×4 (00:27→23:26)
[2018-06-06] MEDS: MethylPREDNISolone SOD SUCC 125 MG/2 ML VIAL IVP SCH ×5 (00:28→23:26)
[2018-06-06] MEDS: HEPARIN SODIUM,PORCINE 5,000 UNITS/ML VIAL SQ SCH ×4 (00:28→23:26)
[2018-06-06] MEDS: ALBUTEROL SULFATE 2.5 MG/0.5 ML NEB SOLUTION NEB SCH ×6 (03:01→23:55)
[2018-06-06] MEDS: IPRATROPIUM BROMIDE 0.5 MG/2.5 ML NEB SOLUTION NEB SCH ×6 (03:01→23:55)
[2018-06-06] MEDS: SIMETHICONE 80 MG CHEWABLE TABLET CHEW PRN (06:04)
[2018-06-06] MEDS: PANTOPRAZOLE SODIUM 40 MG DR TABLET PO SCH ×2 (06:04→08:34)
[2018-06-06] MEDS: HYDROCODONE/ACETAMINOPHEN 10-325 MG TABLET PO PRN ×2 (06:04→22:44)
[2018-06-06] MEDS: INSULIN LISPRO 100 UNITS/ML SQ PRN ×4 (06:05→22:03)
[2018-06-06 06:36] LABS: BASOPHILS % (AUTO) 0.5 % (0.0-2.0); EOSINOPHILS % (AUTO) 0 % (1.0-6.0); HEMATOCRIT 32.6 % (36-46); HEMOGLOBIN 10.9 g/dL (12.0-16.0); LYMPHOCYTES % (AUTO) 9.9 % (22.0-44.0); MEAN CORPUSCULAR HEMOGLOBIN 31.2 pg (26.0-34.0); MEAN CORPUSCULAR HGB CONC 33.6 G/dL (31.0-37.0); MEAN CORPUSCULAR VOLUME 93 fL (80-100); MONOCYTES # (AUTO) 0.2 K/uL (0.1-1.0); MONOCYTES % (AUTO) 1.7 % (2.0-9.0); NEUTROPHILS # (AUTO) 9.3 K/uL (1.8-7.7); PLATELET COUNT (AUTO) 349 K/uL (150-450); RED BLOOD CELL COUNT(AUTO) 3.51 MIL/uL (4.00-5.20); RED CELL DISTRIBUTION WIDTH 15.1 % (11.5-14.5)
[2018-06-06 06:44] LABS: NEUTROPHILS % (AUTO) 87.9 % (40.0-70.0)
[2018-06-06 07:13] LABS: ALBUMIN 2.7 g/dL (3.4-5.0); BILIRUBIN,TOTAL 0.3 mg/dL (0.1-1.0); CALCIUM, TOTAL 9.2 mg/dL (8.8-10.5); CREATININE 1.18 mg/dL (0.60-1.30); POTASSIUM 4.7 mmol/L (3.5-5.1); TOTAL PROTEIN, SERUM 6.4 g/dL (6.4-8.2)
[2018-06-06 07:14] LABS: GLUCOMETER DEV NAME(LOC) 6N 1E; GLUCOSE,POINT OF CARE 409 MG/DL (70-110)
[2018-06-06] MEDS: BUDESONIDE 0.5 MG/2 ML NEB SOLUTION NEB SCH ×2 (07:42→19:47)
[2018-06-06] MEDS: MULTIVITAMINS WITH MINERALS, THERAPEUTIC TABLET PO SCH (08:32)
[2018-06-06] MEDS: ROPINIRole HCL 0.25 MG TABLET PO SCH ×3 (08:33→21:50)
[2018-06-06] MEDS: AmLODIPine BESYLATE 5 MG TABLET PO SCH (08:33)
[2018-06-06] MEDS: GuaiFENesin SR 600 MG ER TABLET PO SCH ×2 (08:34→21:49)
[2018-06-06] MEDS: DOCUSATE SODIUM 100 MG CAPSULE PO SCH ×2 (08:34→21:50)
[2018-06-06] MEDS: FluvoxaMINE MALEATE 50 MG TABLET PO SCH (08:34)
[2018-06-06] MEDS: ClonazePAM 0.5 MG TABLET PO SCH ×3 (08:34→21:49)
[2018-06-06] MEDS: ASPIRIN 81 MG CHEWABLE TABLET PO SCH (08:35)
[2018-06-06 12:49] LABS: GLUCOMETER DEV NAME(LOC) 6N 2D; GLUCOSE,POINT OF CARE 359 MG/DL (70-110)
[2018-06-06] MEDS: CefTRIAXone SODIUM 1 GM in DEXTROSE 5%-WATER 10 ML IV SCH (12:50)
[2018-06-06 20:11] LABS: GLUCOMETER DEV NAME(LOC) 6N 2D; GLUCOSE,POINT OF CARE 364 MG/DL (70-110)
[2018-06-06] MEDS: TraZODone HCL 50 MG TABLET PO SCH (21:49)
[2018-06-06] MEDS: INSULIN GLARGINE,HUM.REC.ANLOG 100 UNITS/ML SQ SCH (21:50)
[2018-06-06] MEDS: ZOLPIDEM TARTRATE 5 MG TABLET PO PRN (22:44)
[2018-06-06] MEDS ORDERED: INSULIN LISPRO 100 UNITS/ML SQ ONE (23:15)
[2018-06-06] MEDS: CARBOXYMETHYLCELLULOSE SODIUM 0.4 ML OPHTHALMIC SOLUTION [PF] OU PRN (23:27)
[2018-06-07] MEDS: ALBUTEROL SULFATE 2.5 MG/0.5 ML NEB SOLUTION NEB SCH ×6 (03:00→23:10)
[2018-06-07] MEDS: IPRATROPIUM BROMIDE 0.5 MG/2.5 ML NEB SOLUTION NEB SCH ×6 (03:00→23:10)
[2018-06-07 04:01] LABS: GLUCOMETER DEV NAME(LOC) 6N 1E; GLUCOSE,POINT OF CARE 450 MG/DL (70-110)
[2018-06-07 04:41] VITALS: BP 155/71
[2018-06-07] MEDS: MethylPREDNISolone SOD SUCC 125 MG/2 ML VIAL IVP SCH ×4 (05:33→23:41)
[2018-06-07] MEDS: INSULIN LISPRO 100 UNITS/ML SQ PRN ×4 (05:33→20:03)
[2018-06-07] MEDS: ACETAMINOPHEN 325 MG TABLET PO PRN (05:33)
[2018-06-07 06:41] LABS: BASOPHILS % (AUTO) 0.1 % (0.0-2.0); EOSINOPHILS % (AUTO) 0 % (1.0-6.0); HEMATOCRIT 32.9 % (36-46); HEMOGLOBIN 10.9 g/dL (12.0-16.0); LYMPHOCYTES # (AUTO) 1.1 K/uL (1.0-4.8); LYMPHOCYTES % (AUTO) 8.5 % (22.0-44.0); MEAN CORPUSCULAR HEMOGLOBIN 30.7 pg (26.0-34.0); MEAN CORPUSCULAR HGB CONC 33.1 G/dL (31.0-37.0); MEAN CORPUSCULAR VOLUME 93 fL (80-100); MONOCYTES # (AUTO) 0.3 K/uL (0.1-1.0); MONOCYTES % (AUTO) 2.7 % (2.0-9.0); NEUTROPHILS # (AUTO) 11.4 K/uL (1.8-7.7); NEUTROPHILS % (AUTO) 88.7 % (40.0-70.0); PLATELET COUNT (AUTO) 368 K/uL (150-450); RED BLOOD CELL COUNT(AUTO) 3.55 MIL/uL (4.00-5.20); RED CELL DISTRIBUTION WIDTH 15.3 % (11.5-14.5)
[2018-06-07 06:48] LABS: ALBUMIN 2.8 g/dL (3.4-5.0); BILIRUBIN,TOTAL 0.3 mg/dL (0.1-1.0); CALCIUM, TOTAL 9.3 mg/dL (8.8-10.5); CREATININE 1.08 mg/dL (0.60-1.30); POTASSIUM 4.7 mmol/L (3.5-5.1); TOTAL PROTEIN, SERUM 6.3 g/dL (6.4-8.2)
[2018-06-07 07:35] VITALS: BP 129/52
[2018-06-07] MEDS: BUDESONIDE 0.5 MG/2 ML NEB SOLUTION NEB SCH ×2 (07:58→19:06)
[2018-06-07] MEDS: GuaiFENesin SR 600 MG ER TABLET PO SCH ×2 (08:56→20:04)
[2018-06-07] MEDS: ClonazePAM 0.5 MG TABLET PO SCH ×3 (08:56→20:06)
[2018-06-07] MEDS: MULTIVITAMINS WITH MINERALS, THERAPEUTIC TABLET PO SCH (08:57)
[2018-06-07] MEDS: DOCUSATE SODIUM 100 MG CAPSULE PO SCH ×2 (08:57→20:05)
[2018-06-07] MEDS: BENZONATATE 100 MG CAPSULE PO SCH ×3 (08:57→23:41)
[2018-06-07] MEDS: ROPINIRole HCL 0.25 MG TABLET PO SCH ×3 (08:58→20:04)
[2018-06-07] MEDS: AmLODIPine BESYLATE 5 MG TABLET PO SCH (08:58)
[2018-06-07] MEDS: FluvoxaMINE MALEATE 50 MG TABLET PO SCH (08:58)
[2018-06-07] MEDS: ASPIRIN 81 MG CHEWABLE TABLET PO SCH (08:58)
[2018-06-07] MEDS: HEPARIN SODIUM,PORCINE 5,000 UNITS/ML VIAL SQ SCH ×3 (08:59→23:41)
[2018-06-07 11:12] LABS: GLUCOMETER DEV NAME(LOC) 6N 1E; GLUCOSE,POINT OF CARE 304 MG/DL (70-110)
[2018-06-07 12:20] VITALS: BP 156/61
[2018-06-07] MEDS: CefTRIAXone SODIUM 1 GM in DEXTROSE 5%-WATER 10 ML IV SCH (12:29)
[2018-06-07 15:25] VITALS: BP 137/58
[2018-06-07] MEDS: SIMETHICONE 80 MG CHEWABLE TABLET CHEW PRN ×2 (15:25→22:17)
[2018-06-07] MEDS: HYDROCODONE/ACETAMINOPHEN 10-325 MG TABLET PO PRN ×2 (15:29→22:17)
[2018-06-07 19:46] VITALS: BP 148/53
[2018-06-07] MEDS: INSULIN GLARGINE,HUM.REC.ANLOG 100 UNITS/ML SQ SCH (20:00)
[2018-06-07] MEDS: TraZODone HCL 50 MG TABLET PO SCH (20:04)
[2018-06-07] MEDS: CARBOXYMETHYLCELLULOSE SODIUM 0.4 ML OPHTHALMIC SOLUTION [PF] OU PRN (20:08)
[2018-06-07] MEDS ORDERED: INSULIN LISPRO 100 UNITS/ML SQ ONE (20:30)
[2018-06-07] MEDS ORDERED: INSULIN GLARGINE,HUM.REC.ANLOG 100 UNITS/ML SQ ONE (20:30)
[2018-06-07] MEDS: ZOLPIDEM TARTRATE 5 MG TABLET PO PRN (22:16)
[2018-06-07 23:30] VITALS: BP 130/50
[2018-06-08 02:45] LABS: GLUCOMETER DEV NAME(LOC) 6N 1E; GLUCOSE,POINT OF CARE 341 MG/DL (70-110)
[2018-06-08] MEDS: IPRATROPIUM BROMIDE 0.5 MG/2.5 ML NEB SOLUTION NEB SCH ×4 (03:00→15:25)
[2018-06-08] MEDS: ALBUTEROL SULFATE 2.5 MG/0.5 ML NEB SOLUTION NEB SCH ×4 (03:00→15:25)
[2018-06-08 05:00] VITALS: BP 134/49
[2018-06-08] MEDS: PANTOPRAZOLE SODIUM 40 MG DR TABLET PO SCH (05:55)
[2018-06-08] MEDS: MethylPREDNISolone SOD SUCC 125 MG/2 ML VIAL IVP SCH (05:55)
[2018-06-08] MEDS: INSULIN LISPRO 100 UNITS/ML SQ PRN ×3 (05:58→16:44)
[2018-06-08 06:22] LABS: EOSINOPHILS % (AUTO) 0 % (1.0-6.0); HEMATOCRIT 33.7 % (36-46); HEMOGLOBIN 11.3 g/dL (12.0-16.0); LYMPHOCYTES # (AUTO) 1.1 K/uL (1.0-4.8); LYMPHOCYTES % (AUTO) 7.7 % (22.0-44.0); MEAN CORPUSCULAR HEMOGLOBIN 30.9 pg (26.0-34.0); MEAN CORPUSCULAR HGB CONC 33.6 G/dL (31.0-37.0); MEAN CORPUSCULAR VOLUME 92 fL (80-100); MONOCYTES # (AUTO) 0.4 K/uL (0.1-1.0); MONOCYTES % (AUTO) 2.8 % (2.0-9.0); NEUTROPHILS # (AUTO) 12.4 K/uL (1.8-7.7); PLATELET COUNT (AUTO) 382 K/uL (150-450); RED BLOOD CELL COUNT(AUTO) 3.66 MIL/uL (4.00-5.20); RED CELL DISTRIBUTION WIDTH 14.9 % (11.5-14.5)
[2018-06-08 06:38] LABS: ALBUMIN 2.8 g/dL (3.4-5.0); BILIRUBIN,TOTAL 0.3 mg/dL (0.1-1.0); CALCIUM, TOTAL 8.9 mg/dL (8.8-10.5); CREATININE 1.14 mg/dL (0.60-1.30); POTASSIUM 4.9 mmol/L (3.5-5.1); TOTAL PROTEIN, SERUM 6.3 g/dL (6.4-8.2)
[2018-06-08 06:42] LABS: NEUTROPHILS % (AUTO) 89.5 % (40.0-70.0)
[2018-06-08 07:10] VITALS: BP 132/52
[2018-06-08] MEDS: BUDESONIDE 0.5 MG/2 ML NEB SOLUTION NEB SCH (08:45)
[2018-06-08] MEDS: ASPIRIN 81 MG CHEWABLE TABLET PO SCH (09:10)
[2018-06-08] MEDS: GuaiFENesin SR 600 MG ER TABLET PO SCH (09:10)
[2018-06-08] MEDS: FluvoxaMINE MALEATE 50 MG TABLET PO SCH (09:11)
[2018-06-08] MEDS: BENZONATATE 100 MG CAPSULE PO SCH ×2 (09:11→15:55)
[2018-06-08] MEDS: ClonazePAM 0.5 MG TABLET PO SCH ×2 (09:11→15:54)
[2018-06-08] MEDS: ACETAMINOPHEN 325 MG TABLET PO PRN (09:12)
[2018-06-08] MEDS: AmLODIPine BESYLATE 5 MG TABLET PO SCH (09:12)
[2018-06-08] MEDS: DOCUSATE SODIUM 100 MG CAPSULE PO SCH (09:12)
[2018-06-08] MEDS: ROPINIRole HCL 0.25 MG TABLET PO SCH ×2 (09:12→15:55)
[2018-06-08] MEDS: MULTIVITAMINS WITH MINERALS, THERAPEUTIC TABLET PO SCH (09:12)
[2018-06-08] MEDS: HEPARIN SODIUM,PORCINE 5,000 UNITS/ML VIAL SQ SCH ×2 (09:13→15:55)
[2018-06-08 10:46] LABS: GLUCOMETER DEV NAME(LOC) 6N 2D; GLUCOSE,POINT OF CARE 389 MG/DL (70-110)
[2018-06-08 11:09] VITALS: BP 154/68
[2018-06-08] MEDS ORDERED: MethylPREDNISolone SOD SUCC 125 MG/2 ML VIAL IVP SCH (12:00)
[2018-06-08] MEDS: CefTRIAXone SODIUM 1 GM in DEXTROSE 5%-WATER 10 ML IV SCH (12:46)
[2018-06-08 12:51] LABS: GLUCOMETER DEV NAME(LOC) 6N 1E; GLUCOSE,POINT OF CARE 522 MG/DL (70-110)
[2018-06-08 15:21] LABS: GLUCOMETER DEV NAME(LOC) 6N 1E; GLUCOSE,POINT OF CARE 538 MG/DL (70-110)
[2018-06-08] MEDS: HYDROCODONE/ACETAMINOPHEN 10-325 MG TABLET PO PRN (15:56)
[2018-06-08 16:02] VITALS: BP 140/60
[2018-06-09 00:49] LABS: GLUCOMETER DEV NAME(LOC) 6N 2D; GLUCOSE,POINT OF CARE 261 MG/DL (70-110)
[2018-06-09 08:58] LABS: GLUCOMETER DEV NAME(LOC) 6N 2D; GLUCOSE,POINT OF CARE 351 MG/DL (70-110)
[2018-06-09 15:57] LABS: GLUCOMETER DEV NAME(LOC) 6N 2D; GLUCOSE,POINT OF CARE 319 MG/DL (70-110)
== END 2018-06-08 17:12 | DRG 871 ==
LOC: EMS 11:02 → UNDOADMIN 18:14 → 5S 18:14 → 6N 23:30
PROVIDERS: ADMIT Internal Medicine; ATTEND Internal Medicine
DX: A41.9 Sepsis, unspecified organism (principal); E43 Unspecified severe protein-calorie malnutrition; N39.0 Urinary tract infection, site not specified; J45.901 Unspecified asthma with (acute) exacerbation; E66.9 Obesity, unspecified; E03.9 Hypothyroidism, unspecified; E11.9 Type 2 diabetes mellitus without complications; E66.01 Morbid (severe) obesity due to excess calories; G89.29 Other chronic pain; I10 Essential (primary) hypertension; K21.9 Gastro-esophageal reflux disease without esophagitis; F32.9 Major depressive disorder, single episode, unspecified; K58.9 Irritable bowel syndrome, unspecified; M79.7 Fibromyalgia; Z96.649 Presence of unspecified artificial hip joint; B96.20 Unspecified Escherichia coli [E. coli] as the cause of diseases classified elsewhere; M54.9 Dorsalgia, unspecified; Z88.6 Allergy status to analgesic agent; Z88.1 Allergy status to other antibiotic agents; Z91.09 Other allergy status, other than to drugs and biological substances; Z82.5 Family history of asthma and other chronic lower respiratory diseases; Z82.49 Family history of ischemic heart disease and other diseases of the circulatory system; Z68.39 Body mass index [BMI] 39.0-39.9, adult
CPT/HCPCS: 51702; 83036; 83605; 83735; 87040; 87086; 93005; 94640; 94644; 97110; 97116; 97161; 97530; 99285; J0696; J1644; J1815; J2930; J7030; J7060

== ENCOUNTER → 2018-10-04 | Outpatient (CLI) | payer MEDICARE, OTHER ==
[~2018-10-04] MED LIST changes: -AMLO-511 PO; -ATOR20TA86 PO; -AZEL137S8 NS; +BACL10TA PO; -BUDE10.2 IH; +CELE200 PO; -CILO100T PO; -EFIN4SOL TP; +FAMO20 PO; +FURO20 PO; +GLIP5 PO; -GLUC1TAB21 PO; +HEPA500018 SQ; +IBUP-2071 PO; -INSNOV SQ; +LOSA25TA41 PO; +METF-960 PO; -MIRA25TA PO; +MONT10TA21 PO; -MTH/1CAP7 PO; -NITR.4 SL; -OMEP20 PO; +PANT40TA25 PO; -PRED20 PO; -ROPI0.257 PO; +TAMS0.4C32 PO; -[UNRECOGNIZED DRUG - CODE] PO
[2018-10-04 11:08] LABS: BASOPHILS % (AUTO) 0.3 % (0.0-2.0); EOSINOPHILS % (AUTO) 4.7 % (1.0-6.0); HEMATOCRIT 39.7 % (36-46); HEMOGLOBIN 12.8 g/dL (12.0-16.0); LYMPHOCYTES # (AUTO) 1.7 K/uL (1.0-4.8); LYMPHOCYTES % (AUTO) 18.7 % (22.0-44.0); MEAN CORPUSCULAR HEMOGLOBIN 29.2 pg (26.0-34.0); MEAN CORPUSCULAR HGB CONC 32.4 G/dL (31.0-37.0); MEAN CORPUSCULAR VOLUME 90 fL (80-100); MONOCYTES # (AUTO) 0.5 K/uL (0.1-1.0); MONOCYTES % (AUTO) 5.2 % (2.0-9.0); NEUTROPHILS # (AUTO) 6.6 K/uL (1.8-7.7); NEUTROPHILS % (AUTO) 71.1 % (40.0-70.0); PLATELET COUNT (AUTO) 364 K/uL (150-450); RED BLOOD CELL COUNT(AUTO) 4.39 MIL/uL (4.00-5.20); RED CELL DISTRIBUTION WIDTH 15.9 % (11.5-14.5)
[2018-10-04 11:09] LABS: ALANINE AMINOTRANSFERASE 19 U/L (12-78); ALBUMIN 3.4 g/dL (3.4-5.0); ALKALINE PHOSPHATASE 54 U/L (46-116); ANION GAP 6 mmol/L (8-16); ASPARTATE AMINOTRANSFERASE 14 U/L (15-37); BILIRUBIN,TOTAL 0.2 mg/dL (0.1-1.0); CALCIUM, TOTAL 9.7 mg/dL (8.8-10.5); CARBON DIOXIDE 32 mmol/L (22-29); CHLORIDE 100 mmol/L (98-107); CHOL/HDL RATIO 3.7 (3.9-5.7); CHOLESTEROL 167 mg/dL (131-200); CREATININE 0.85 mg/dL (0.60-1.30); GLUCOSE,RANDOM 116 mg/dL (70-110); HDL CHOLESTEROL 45 mg/dL (40-60); LDL CHOL (CALC.) 98 mg/dL (0-130); POTASSIUM 4.5 mmol/L (3.5-5.1); SODIUM SERUM 138 mmol/L (136-145); THYROID STIMULATING HORMONE 2.03 uIU/mL (0.36-3.74); TOTAL PROTEIN, SERUM 7.1 g/dL (6.4-8.2); TRIGLYCERIDES 118 mg/dL (15-150); UREA NITROGEN, BLOOD 22 mg/dL (7-18)
[2018-10-04 11:11] LABS: GLOMERULAR FILTR. RATE CALC > 60 mL/min (>60)
[2018-10-04 11:19] LABS: HEMOGLOBIN A1C 6.9 % (4.5-6.2)
== END | disposition home or self-care (01) ==
LOC: LABPV 10:00
PROVIDERS: ATTEND Internal Medicine Cardiovascular Disease
DX: E55.9 Vitamin D deficiency, unspecified (principal); I13.0 Hypertensive heart and chronic kidney disease with heart failure and stage 1 through stage 4 chronic kidney disease, or unspecified chronic kidney disease; E11.22 Type 2 diabetes mellitus with diabetic chronic kidney disease; N18.9 Chronic kidney disease, unspecified; I50.9 Heart failure, unspecified; D56.5 Hemoglobin E-beta thalassemia
CPT/HCPCS: 82306; 83036; 83735; 84436; 84443

== ENCOUNTER → 2018-12-23 | Outpatient (CLI) | payer MEDICARE, OTHER ==
[2018-12-23 12:22] LABS: ALBUMIN 3.3 g/dL (3.4-5.0); BILIRUBIN,TOTAL 0.4 mg/dL (0.1-1.0); CALCIUM, TOTAL 9.1 mg/dL (8.8-10.5); CHOL/HDL RATIO 2.6 (3.9-5.7); CREATININE 1.15 mg/dL (0.60-1.30); POTASSIUM 4.6 mmol/L (3.5-5.1); TOTAL PROTEIN, SERUM 6.8 g/dL (6.4-8.2)
== END | disposition home or self-care (01) ==
LOC: LABPV 09:50
PROVIDERS: ATTEND Internal Medicine Cardiovascular Disease
DX: E55.9 Vitamin D deficiency, unspecified (principal); I11.0 Hypertensive heart disease with heart failure; I50.9 Heart failure, unspecified; E11.9 Type 2 diabetes mellitus without complications; D56.5 Hemoglobin E-beta thalassemia

== ENCOUNTER → 2019-03-19 | Outpatient (CLI) | payer MEDICARE, OTHER ==
[~2019-03-19] MED LIST changes: -TRAZ-219 PO; +TRAZ-252 PO
[2019-03-19 12:32] LABS: BASOPHILS % (AUTO) 0.3 % (0.0-2.0); EOSINOPHILS % (AUTO) 1.6 % (1.0-6.0); HEMOGLOBIN 11.7 g/dL (12.0-16.0); LYMPHOCYTES # (AUTO) 1.9 K/uL (1.0-4.8); LYMPHOCYTES % (AUTO) 18.2 % (22.0-44.0); MEAN CORPUSCULAR HEMOGLOBIN 31.2 pg (26.0-34.0); MEAN CORPUSCULAR HGB CONC 32.6 G/dL (31.0-37.0); MEAN CORPUSCULAR VOLUME 96 fL (80-100); MONOCYTES # (AUTO) 0.5 K/uL (0.1-1.0); MONOCYTES % (AUTO) 4.5 % (2.0-9.0); NEUTROPHILS # (AUTO) 7.9 K/uL (1.8-7.7); NEUTROPHILS % (AUTO) 75.4 % (40.0-70.0); PLATELET COUNT (AUTO) 359 K/uL (150-450); RED BLOOD CELL COUNT(AUTO) 3.76 MIL/uL (4.00-5.20); RED CELL DISTRIBUTION WIDTH 14.3 % (11.5-14.5)
[2019-03-19 13:22] LABS: BILIRUBIN,TOTAL 0.3 mg/dL (0.1-1.0); CALCIUM, TOTAL 9.2 mg/dL (8.8-10.5); CHOL/HDL RATIO 2.4 (3.9-5.7); CREATININE 0.98 mg/dL (0.60-1.30); POTASSIUM 5.1 mmol/L (3.5-5.1); THYROID STIMULATING HORMONE 3.45 uIU/mL (0.36-3.74); TOTAL PROTEIN, SERUM 6.5 g/dL (6.4-8.2)
[2019-03-19 13:26] LABS: HEMOGLOBIN A1C 7.3 % (4.5-6.2)
== END | disposition home or self-care (01) ==
LOC: LABPV 08:22
PROVIDERS: ATTEND Internal Medicine
DX: E78.5 Hyperlipidemia, unspecified (principal); D64.9 Anemia, unspecified; E11.69 Type 2 diabetes mellitus with other specified complication; E03.9 Hypothyroidism, unspecified
CPT/HCPCS: 82043; 82570; 83036; 83540; 84443

== ENCOUNTER 2019-04-18 18:26 | Emergency (ER) | payer MEDICARE, OTHER ==
[~2019-04-18] VITALS: Ht 160 cm; Wt 94.1 kg
[2019-04-18] MEDS ORDERED: AMLO10TA7 PO (18:51)
[2019-04-18] MEDS ORDERED: OMEP20 PO (18:51)
[2019-04-18] MEDS ORDERED: MIRA25TA PO (18:51)
[2019-04-18] MEDS ORDERED: METH1T PO (18:51)
[2019-04-18] MEDS ORDERED: ATOR10TA84 PO (18:52)
[2019-04-18] MEDS ORDERED: MTH/1CAP7 PO (18:52)
[2019-04-18] MEDS ORDERED: ROPI0.257 PO (18:52)
[2019-04-18] MEDS ORDERED: NITR0.4T52 SL (18:52)
[2019-04-18] MEDS ORDERED: GLUC1CAP14 PO (18:52)
[2019-04-18 18:55] LABS: GLUCOSE,POINT OF CARE 113 MG/DL (70-110)
[2019-04-18 21:54] LABS: BASOPHILS % (AUTO) 0.5 % (0.0-2.0); EOSINOPHILS % (AUTO) 3.5 % (1.0-6.0); HEMATOCRIT 37.2 % (36-46); HEMOGLOBIN 12.1 g/dL (12.0-16.0); LYMPHOCYTES # (AUTO) 1.9 K/uL (1.0-4.8); LYMPHOCYTES % (AUTO) 17.8 % (22.0-44.0); MEAN CORPUSCULAR HEMOGLOBIN 31.1 pg (26.0-34.0); MEAN CORPUSCULAR HGB CONC 32.4 G/dL (31.0-37.0); MEAN CORPUSCULAR VOLUME 96 fL (80-100); MONOCYTES # (AUTO) 0.5 K/uL (0.1-1.0); MONOCYTES % (AUTO) 4.9 % (2.0-9.0); NEUTROPHILS % (AUTO) 73.3 % (40.0-70.0); PLATELET COUNT (AUTO) 301 K/uL (150-450); RED BLOOD CELL COUNT(AUTO) 3.88 MIL/uL (4.00-5.20); RED CELL DISTRIBUTION WIDTH 14.7 % (11.5-14.5)
[2019-04-18 22:04] LABS: PROTHROMBIN TIME 10.1 SEC (9.4-11.6)
[2019-04-19 00:33] VITALS: BP 135/71
== END 2019-04-19 00:39 | disposition home or self-care (01) ==
LOC: EMS 18:27
DX: L03.115 Cellulitis of right lower limb (principal); I10 Essential (primary) hypertension; E11.9 Type 2 diabetes mellitus without complications; E03.9 Hypothyroidism, unspecified; J45.909 Unspecified asthma, uncomplicated; F11.90 Opioid use, unspecified, uncomplicated; Z88.1 Allergy status to other antibiotic agents; Z88.5 Allergy status to narcotic agent; Z88.8 Allergy status to other drugs, medicaments and biological substances; Z79.84 Long term (current) use of oral hypoglycemic drugs; Z79.899 Other long term (current) drug therapy
CPT/HCPCS: 93971

== ENCOUNTER 2019-07-15 13:02 | Inpatient (IN) | payer MEDICARE, OTHER ==
[~2019-07-15] VITALS: Ht 162.6 cm; Wt 99.9 kg
[~2019-07-15 13:02] MED LIST changes: +AMLO10TA7 PO; +ATOR10TA84 PO; -BACL10TA PO; -CELE200 PO; -FAMO20 PO; -GLIP5 PO; +GLUC1CAP14 PO; -HEPA500018 SQ; -LOSA25TA41 PO; -METF-960 PO; +METH1T PO; +MIRA25TA PO; +MTH/1CAP7 PO; +NITR0.4T52 SL; +OMEP20 PO; -PANT40TA25 PO; +ROPI0.257 PO; -TAMS0.4C32 PO
[2019-07-15] MEDS ORDERED: HYDR25TA84 PO (13:12)
[2019-07-15 14:01] LABS: BASOPHILS % (AUTO) 0.2 % (0.0-2.0); EOSINOPHILS % (AUTO) 6.3 % (1.0-6.0); HEMATOCRIT 36.1 % (36-46); HEMOGLOBIN 11.8 g/dL (12.0-16.0); LYMPHOCYTES # (AUTO) 1.3 K/uL (1.0-4.8); LYMPHOCYTES % (AUTO) 17.2 % (22.0-44.0); MEAN CORPUSCULAR HEMOGLOBIN 30.3 pg (26.0-34.0); MEAN CORPUSCULAR HGB CONC 32.6 G/dL (31.0-37.0); MEAN CORPUSCULAR VOLUME 93 fL (80-100); MONOCYTES # (AUTO) 0.5 K/uL (0.1-1.0); MONOCYTES % (AUTO) 6.7 % (2.0-9.0); NEUTROPHILS # (AUTO) 5.4 K/uL (1.8-7.7); NEUTROPHILS % (AUTO) 69.6 % (40.0-70.0); PLATELET COUNT (AUTO) 273 K/uL (150-450); RED BLOOD CELL COUNT(AUTO) 3.89 MIL/uL (4.00-5.20); RED CELL DISTRIBUTION WIDTH 13.8 % (11.5-14.5)
[2019-07-15] MEDS ORDERED: ASPIRIN 325 MG EC TABLET PO ONE (14:30)
[2019-07-15 14:31] LABS: CALCIUM, TOTAL 8.5 mg/dL (8.8-10.5); CREATININE 1.12 mg/dL (0.60-1.30); POTASSIUM 3.9 mmol/L (3.5-5.1)
[2019-07-15 14:35] LABS: BILIRUBIN,TOTAL 0.4 mg/dL (0.1-1.0); TOTAL PROTEIN, SERUM 6.2 g/dL (6.4-8.2)
[2019-07-15] MEDS ORDERED: MAGNESIUM HYDROXIDE SUSPENSION 30 ML UDCUP PO PRN (15:30)
[2019-07-15] MEDS ORDERED: ACETAMINOPHEN 325 MG TABLET PO PRN (15:30)
[2019-07-15] MEDS ORDERED: ACYCLOVIR 200 MG CAPSULE PO ONE (15:30)
[2019-07-15] MEDS ORDERED: MINERAL OIL/PETROLATUM,WHITE PF 3.5 GM OPHTHALMIC OINTMENT OS ONE (15:30)
[2019-07-15] MEDS ORDERED: DEXTROSE 50%-WATER 25 GM/50 ML SYRINGE IVP PRN (15:30)
[2019-07-15] MEDS ORDERED: PredniSONE 20 MG TABLET PO ONE (15:30)
[2019-07-15] MEDS: ATORVASTATIN CALCIUM 40 MG TABLET PO SCH (16:03)
[2019-07-15 16:05] LABS: APPEARANCE,URINE CLOUDY (CLEAR); BILIRUBIN,URINE NEGATIVE (NEGATIVE); GLUCOSE, URINE (UA) NEGATIVE (NEGATIVE); KETONES,URINE NEGATIVE (NEGATIVE); LEUKOCYTE ESTERASE ,URINE LARGE (NEGATIVE); NITRATE,URINE POSITIVE (NEGATIVE); OCCULT BLOOD,URINE SMALL (NEGATIVE); PROTEIN,URINE TRACE (NEGATIVE); UROBILINOGEN,URINE 0.2 mg/dL (<=1.0)
[2019-07-15 16:08] LABS: AMPHET/METH SCREEN,URINE NEGATIVE (NEGATIVE); BARBITURATE SCREEN, URINE NEGATIVE (NEGATIVE); BENZODIAZEPINES SCREEN,URINE NEGATIVE (NEGATIVE); CANNABINOID SCREEN,URINE NEGATIVE (NEGATIVE); COCAINE SCREEN,URINE NEGATIVE (NEGATIVE); METHADONE SCREEN, URINE NEGATIVE (NEGATIVE); OPIATE SCREEN,URINE POSITIVE (NEGATIVE)
[2019-07-15 16:10] LABS: PHENCYCLIDINE SCREEN,URINE NEGATIVE (NEGATIVE)
[2019-07-15 16:13] LABS: RBC,URINE 0-2 /HPF (0-2)
[2019-07-15 16:14] LABS: BACTERIA,URINE Many /HPF (None Seen); SQUAMOUS EPITHELIAL CELL,UR Few /LPF (None Seen); TRANSITIONAL EPI CELLS,URINE Few /LPF (None Seen); WBC,URINE >100 /HPF (0-5)
[2019-07-15] MEDS: HEPARIN SODIUM,PORCINE 5,000 UNITS/ML VIAL SQ SCH (16:14)
[2019-07-15] MEDS: ACYCLOVIR 800 MG TABLET PO SCH ×2 (18:51→23:04)
[2019-07-15] MEDS ORDERED: HYDROCODONE/ACETAMINOPHEN 5-325 MG TABLET PO ONE (19:00)
[2019-07-15] MEDS: DOCUSATE SODIUM 100 MG CAPSULE PO SCH (21:00)
[2019-07-15 22:56] VITALS: BP 149/76
[2019-07-15] MEDS ORDERED: ZOLPIDEM TARTRATE 5 MG TABLET PO PRN (23:45)
[2019-07-15] MEDS ORDERED: INSULIN GLARGINE,HUM.REC.ANLOG 100 UNITS/ML SQ SCH (23:50)
[2019-07-16] MEDS: HEPARIN SODIUM,PORCINE 5,000 UNITS/ML VIAL SQ SCH ×3 (00:14→15:32)
[2019-07-16] MEDS: HYDROCODONE/ACETAMINOPHEN 10-325 MG TABLET PO PRN ×3 (00:14→15:33)
[2019-07-16] MEDS: MINERAL OIL/PETROLATUM,WHITE PF 3.5 GM OPHTHALMIC OINTMENT OU SCH ×4 (00:15→15:31)
[2019-07-16] MEDS: INSULIN LISPRO 100 UNITS/ML SQ PRN ×3 (00:16→12:13)
[2019-07-16 02:50] LABS: GLUCOMETER DEV NAME(LOC) 5N.2; GLUCOSE,POINT OF CARE 223 MG/DL (70-110)
[2019-07-16 04:00] VITALS: BP 133/74
[2019-07-16] MEDS: ACYCLOVIR 800 MG TABLET PO SCH ×3 (05:26→13:27)
[2019-07-16 07:50] VITALS: BP 173/85
[2019-07-16] MEDS: DOCUSATE SODIUM 100 MG CAPSULE PO SCH (08:44)
[2019-07-16] MEDS: ATORVASTATIN CALCIUM 40 MG TABLET PO SCH (08:45)
[2019-07-16] MEDS ORDERED: FAMOTIDINE 20 MG TABLET PO SCH (09:00)
[2019-07-16] MEDS ORDERED: SIMETHICONE 80 MG CHEWABLE TABLET CHEW PRN (09:00)
[2019-07-16] MEDS ORDERED: AmLODIPine BESYLATE 10 MG TABLET PO SCH (09:00)
[2019-07-16] MEDS ORDERED: ASPIRIN 81 MG CHEWABLE TABLET PO SCH (09:00)
[2019-07-16] MEDS ORDERED: PredniSONE 20 MG TABLET PO SCH (09:00)
[2019-07-16] MEDS ORDERED: PRED20 PO (09:35)
[2019-07-16] MEDS ORDERED: ACYC800T PO (09:36)
[2019-07-16 11:28] VITALS: BP 155/88
[2019-07-16 12:38] LABS: GLUCOMETER DEV NAME(LOC) 5N.1; GLUCOSE,POINT OF CARE 182 MG/DL (70-110)
[2019-07-16 17:53] LABS: GLUCOMETER DEV NAME(LOC) 5N.2; GLUCOSE,POINT OF CARE 248 MG/DL (70-110)
== END 2019-07-16 17:20 | disposition home or self-care (01) | DRG 74 ==
LOC: EMS 13:05 → 5S 18:53
PROVIDERS: ADMIT Internal Medicine; ATTEND Internal Medicine
DX: G51.0 Bell's palsy (principal); E66.01 Morbid (severe) obesity due to excess calories; F32.9 Major depressive disorder, single episode, unspecified; E03.9 Hypothyroidism, unspecified; E11.9 Type 2 diabetes mellitus without complications; E78.5 Hyperlipidemia, unspecified; G89.4 Chronic pain syndrome; I10 Essential (primary) hypertension; J45.909 Unspecified asthma, uncomplicated; M19.90 Unspecified osteoarthritis, unspecified site; K21.9 Gastro-esophageal reflux disease without esophagitis; Z96.649 Presence of unspecified artificial hip joint; M79.7 Fibromyalgia; Z79.4 Long term (current) use of insulin; Z82.49 Family history of ischemic heart disease and other diseases of the circulatory system; Z82.5 Family history of asthma and other chronic lower respiratory diseases; Z88.1 Allergy status to other antibiotic agents; Z88.8 Allergy status to other drugs, medicaments and biological substances; Z79.899 Other long term (current) drug therapy; Z68.37 Body mass index [BMI] 37.0-37.9, adult
CPT/HCPCS: 70450; 86850; 86900; 86901; 87086; 92521; 93005; 97162; 97165; 97535; 99291; J1644; J1815

== ENCOUNTER → 2019-08-04 | Outpatient (CLI) | payer MEDICARE, OTHER ==
[~2019-08-04] MED LIST changes: +ACYC800T PO; -ASCO500 PO; -CLON.5 PO; -FERR-89 PO; -FLUT16H NASAL; -FLUV50 PO; -FURO20 PO; -GLUC1CAP14 PO; -HYDR-4455 PO; -IBUP-2071 PO; -IPRA3AMP23 NEB; -MAGN250T2 PO; -METH1T PO; -MIRA25TA PO; -MONT10TA21 PO; -MTH/1CAP7 PO; -NITR0.4T52 SL; +PRED20 PO; -ROPI0.257 PO; -SITA100 PO; -TRAZ-252 PO; -ZOLP5 PO
[2019-08-04 13:01] LABS: BASOPHILS % (AUTO) 0.2 % (0.0-2.0); EOSINOPHILS % (AUTO) 6.2 % (1.0-6.0); HEMATOCRIT 31.3 % (36-46); HEMOGLOBIN 10.4 g/dL (12.0-16.0); LYMPHOCYTES # (AUTO) 2.2 K/uL (1.0-4.8); LYMPHOCYTES % (AUTO) 28.7 % (22.0-44.0); MEAN CORPUSCULAR HEMOGLOBIN 32.4 pg (26.0-34.0); MEAN CORPUSCULAR HGB CONC 33.1 G/dL (31.0-37.0); MEAN CORPUSCULAR VOLUME 98 fL (80-100); MONOCYTES # (AUTO) 0.5 K/uL (0.1-1.0); NEUTROPHILS # (AUTO) 4.4 K/uL (1.8-7.7); NEUTROPHILS % (AUTO) 57.9 % (40.0-70.0); PLATELET COUNT (AUTO) 293 K/uL (150-450); RED CELL DISTRIBUTION WIDTH 17.8 % (11.5-14.5)
[2019-08-04 13:09] LABS: HEMOGLOBIN A1C 6.2 % (4.5-6.2)
[2019-08-04 13:20] LABS: ALBUMIN 3.1 g/dL (3.4-5.0); BILIRUBIN,TOTAL 0.7 mg/dL (0.1-1.0); CHOL/HDL RATIO 2.9 (3.9-5.7); CREATININE 1.11 mg/dL (0.60-1.30); POTASSIUM 4.4 mmol/L (3.5-5.1); THYROID STIMULATING HORMONE 3.53 uIU/mL (0.36-3.74); TOTAL PROTEIN, SERUM 6.6 g/dL (6.4-8.2)
== END | disposition home or self-care (01) ==
LOC: LABPV 10:30
PROVIDERS: ATTEND Internal Medicine
DX: E11.69 Type 2 diabetes mellitus with other specified complication (principal); E03.9 Hypothyroidism, unspecified; E55.9 Vitamin D deficiency, unspecified; E78.2 Mixed hyperlipidemia; D64.9 Anemia, unspecified
CPT/HCPCS: 82043; 82570; 82652; 83036; 84443

== ENCOUNTER → 2019-08-19 | Outpatient (CLI) | payer MEDICARE, OTHER ==
[2019-08-19 12:32] LABS: BASOPHILS % (AUTO) 0.3 % (0.0-2.0); EOSINOPHILS % (AUTO) 7.2 % (1.0-6.0); HEMATOCRIT 30.5 % (36-46); HEMOGLOBIN 10.1 g/dL (12.0-16.0); LYMPHOCYTES # (AUTO) 1.7 K/uL (1.0-4.8); MEAN CORPUSCULAR HEMOGLOBIN 34.1 pg (26.0-34.0); MEAN CORPUSCULAR HGB CONC 33.1 G/dL (31.0-37.0); MEAN CORPUSCULAR VOLUME 103 fL (80-100); MONOCYTES # (AUTO) 0.6 K/uL (0.1-1.0); MONOCYTES % (AUTO) 7.7 % (2.0-9.0); NEUTROPHILS # (AUTO) 4.5 K/uL (1.8-7.7); NEUTROPHILS % (AUTO) 61.8 % (40.0-70.0); PLATELET COUNT (AUTO) 328 K/uL (150-450); RED BLOOD CELL COUNT(AUTO) 2.95 MIL/uL (4.00-5.20); RED CELL DISTRIBUTION WIDTH 15.8 % (11.5-14.5)
[2019-08-19 12:38] LABS: HEMOGLOBIN A1C 4.9 % (4.5-6.2)
[2019-08-19 13:02] LABS: ALBUMIN 3.5 g/dL (3.4-5.0); BILIRUBIN,TOTAL 0.8 mg/dL (0.1-1.0); CALCIUM, TOTAL 8.8 mg/dL (8.8-10.5); CHOL/HDL RATIO 3.4 (3.9-5.7); CREATININE 1.26 mg/dL (0.60-1.30); FREE T4 (FREE THYROXINE) 0.84 ng/dL (0.76-1.46); MAGNESIUM 1.7 mg/dL (1.80-2.40); POTASSIUM 3.9 mmol/L (3.5-5.1); THYROID STIMULATING HORMONE 3.78 uIU/mL (0.36-3.74); TOTAL PROTEIN, SERUM 6.6 g/dL (6.4-8.2)
== END | disposition home or self-care (01) ==
LOC: LABPV 10:48
PROVIDERS: ATTEND Internal Medicine Cardiovascular Disease
DX: I11.0 Hypertensive heart disease with heart failure (principal); I50.9 Heart failure, unspecified; E11.8 Type 2 diabetes mellitus with unspecified complications; E55.9 Vitamin D deficiency, unspecified; D56.5 Hemoglobin E-beta thalassemia; R73.09 Other abnormal glucose
CPT/HCPCS: 82306; 83036; 83735; 84439; 84443

== ENCOUNTER 2019-10-31 07:38 | Emergency (ER) | payer MEDICARE, OTHER ==
[~2019-10-31] VITALS: Ht 162.6 cm; Wt 97.7 kg
[~2019-10-31 07:38] MED LIST changes: +ASPI-728 PO; -ASPI81 PO
[2019-10-31] MEDS ORDERED: INSNOV SQ (08:02)
[2019-10-31] MEDS ORDERED: CLON.5 PO (08:02)
[2019-10-31] MEDS ORDERED: MIRA25TA PO (08:02)
[2019-10-31] MEDS ORDERED: FURO40 PO (08:02)
[2019-10-31] MEDS ORDERED: ZOLP5 PO (08:02)
[2019-10-31] MEDS ORDERED: MAGN200T4 PO (08:02)
[2019-10-31] MEDS ORDERED: HYDR10TA31 PO (08:02)
[2019-10-31] MEDS ORDERED: DIPH25 PO (08:02)
[2019-10-31] MEDS ORDERED: GLUC-145 PO (08:02)
[2019-10-31] MEDS ORDERED: HYDR-3289 PO (08:02)
[2019-10-31] MEDS ORDERED: METH1T PO (08:02)
[2019-10-31] MEDS ORDERED: ADV250 IH (08:02)
[2019-10-31] MEDS ORDERED: DICL2.5D8 OU (08:02)
[2019-10-31] MEDS ORDERED: TRAZ150 PO (08:02)
[2019-10-31] MEDS ORDERED: FLUV50 PO (08:02)
[2019-10-31] MEDS ORDERED: ROPI2 PO (08:02)
[2019-10-31] MEDS ORDERED: CALC500T7 PO (08:02)
[2019-10-31] MEDS ORDERED: DULA1.5P SQ (08:02)
[2019-10-31] MEDS ORDERED: FLUT16H NASAL (08:02)
[2019-10-31] MEDS ORDERED: MULT1CAP32 PO (08:02)
[2019-10-31] MEDS ORDERED: PHEN95TA23 PO (08:02)
[2019-10-31] MEDS ORDERED: AZEL137S8 NASAL (08:02)
[2019-10-31] MEDS ORDERED: DOCU-275 PO (08:02)
[2019-10-31] MEDS ORDERED: METH-372 PO (08:02)
[2019-10-31] MEDS ORDERED: CALC-52 PO (08:02)
[2019-10-31] MEDS ORDERED: INSLAN SQ (08:02)
[2019-10-31] MEDS ORDERED: ATOR20TA86 PO (08:02)
[2019-10-31] MEDS ORDERED: NITR0.4T52 SL (08:02)
[2019-10-31] MEDS ORDERED: ASCO500 PO (08:02)
[2019-10-31] MEDS ORDERED: FERR236T3 PO (08:02)
[2019-10-31 09:13] LABS: BASOPHILS % (AUTO) 0.4 % (0.0-2.0); EOSINOPHILS % (AUTO) 3.5 % (1.0-6.0); HEMATOCRIT 31.6 % (36-46); HEMOGLOBIN 10.2 g/dL (12.0-16.0); LYMPHOCYTES # (AUTO) 1.3 K/uL (1.0-4.8); MEAN CORPUSCULAR HEMOGLOBIN 33.6 pg (26.0-34.0); MEAN CORPUSCULAR HGB CONC 32.4 G/dL (31.0-37.0); MEAN CORPUSCULAR VOLUME 104 fL (80-100); MONOCYTES # (AUTO) 0.6 K/uL (0.1-1.0); MONOCYTES % (AUTO) 6.1 % (2.0-9.0); NEUTROPHILS # (AUTO) 7.4 K/uL (1.8-7.7); PLATELET COUNT (AUTO) 323 K/uL (150-450); RED BLOOD CELL COUNT(AUTO) 3.04 MIL/uL (4.00-5.20); RED CELL DISTRIBUTION WIDTH 15.8 % (11.5-14.5)
[2019-10-31 09:24] LABS: CALCIUM, TOTAL 8.9 mg/dL (8.8-10.5); CREATININE 1.22 mg/dL (0.60-1.30); POTASSIUM 3.9 mmol/L (3.5-5.1)
[2019-10-31 09:30] LABS: ALBUMIN 3.3 g/dL (3.4-5.0); BILIRUBIN,TOTAL 0.5 mg/dL (0.1-1.0); TOTAL PROTEIN, SERUM 6.3 g/dL (6.4-8.2)
[2019-10-31 10:17] LABS: APPEARANCE,URINE CLEAR (CLEAR); BILIRUBIN,URINE NEGATIVE (NEGATIVE); GLUCOSE, URINE (UA) NEGATIVE (NEGATIVE); KETONES,URINE TRACE mg/dL (NEGATIVE); LEUKOCYTE ESTERASE ,URINE MODERATE (NEGATIVE); NITRATE,URINE POSITIVE (NEGATIVE); OCCULT BLOOD,URINE NEGATIVE (NEGATIVE); PROTEIN,URINE NEGATIVE (NEGATIVE)
[2019-10-31 10:25] LABS: BACTERIA,URINE Few /HPF (None Seen); RBC,URINE None Seen /HPF (0-2); SQUAMOUS EPITHELIAL CELL,UR Few /LPF (None Seen)
[2019-10-31] MEDS ORDERED: KETOROLAC TROMETHAMINE 60 MG/2 ML VIAL IM ONE (13:00)
[2019-10-31] MEDS ORDERED: TRAZ-252 PO (13:00)
[2019-10-31] MEDS ORDERED: HYDROCODONE/ACETAMINOPHEN 10-325 MG TABLET PO ONE (13:00)
[2019-10-31 15:25] VITALS: BP 118/81
== END 2019-10-31 15:35 | disposition home or self-care (01) ==
LOC: EMS 07:41
DX: G89.29 Other chronic pain (principal); M54.5 Low back pain; M25.551 Pain in right hip; E03.9 Hypothyroidism, unspecified; E11.40 Type 2 diabetes mellitus with diabetic neuropathy, unspecified; I10 Essential (primary) hypertension; J45.909 Unspecified asthma, uncomplicated; K21.9 Gastro-esophageal reflux disease without esophagitis; F32.9 Major depressive disorder, single episode, unspecified; F11.90 Opioid use, unspecified, uncomplicated; Z79.899 Other long term (current) drug therapy; Z98.890 Other specified postprocedural states; Z79.4 Long term (current) use of insulin; Z79.82 Long term (current) use of aspirin; Z88.8 Allergy status to other drugs, medicaments and biological substances; Z88.5 Allergy status to narcotic agent; Z88.1 Allergy status to other antibiotic agents; Z88.6 Allergy status to analgesic agent
CPT/HCPCS: 36415; 73502; 74176; 80053; 81001; 82962; 85025; 87086; 96372; 99285; J1885

== ENCOUNTER → 2020-03-17 | Outpatient (CLI) | payer MEDICARE, OTHER ==
[~2020-03-17] MED LIST changes: -ACET-2744 PO; -ACYC800T PO; +ADV250 IH; +AMLO-258 PO; -AMLO10TA7 PO; +ASCO500 PO; -ATOR10TA84 PO; +ATOR20TA86 PO; +AZEL137S8 NASAL; +CALC-52 PO; -CALC-789 PO; +CALC500T7 PO; +CLON.5 PO; +DICL2.5D8 OU; +DIPH25 PO; +DOCU-275 PO; +DULA1.5P SQ; +FERR236T3 PO; +FLUT16H NASAL; +FLUV50 PO; +FURO40 PO; +GLUC-145 PO; +HYDR-3289 PO; +HYDR10TA31 PO; +INSNOV SQ; +MAGN200T4 PO; +METH-372 PO; +METH1T PO; +MIRA25TA PO; +MULT1CAP32 PO; +NITR0.4T52 SL; +PHEN95TA23 PO; -PRED20 PO; +ROPI2TAB26 PO; +TRAZ-252 PO; +ZOLP-280 PO
[2020-03-17 14:29] LABS: ALBUMIN 3.4 g/dL (3.4-5.0); BILIRUBIN,TOTAL 0.6 mg/dL (0.1-1.0); CALCIUM, TOTAL 9.1 mg/dL (8.8-10.5); CHOL/HDL RATIO 3.8 (3.9-5.7); CREATININE 1.34 mg/dL (0.60-1.30); POTASSIUM 3.7 mmol/L (3.5-5.1); THYROID STIMULATING HORMONE 4.05 uIU/mL (0.36-3.74); TOTAL PROTEIN, SERUM 6.7 g/dL (6.4-8.2)
[2020-03-17 14:39] LABS: HEMOGLOBIN A1C 4.3 % (3.8-5.6)
== END | disposition home or self-care (01) ==
LOC: LABPV 11:25
PROVIDERS: ATTEND Internal Medicine
DX: E11.69 Type 2 diabetes mellitus with other specified complication (principal); D64.9 Anemia, unspecified; E78.5 Hyperlipidemia, unspecified; R30.0 Dysuria
CPT/HCPCS: 82043; 82570; 83036; 84443

== ENCOUNTER → 2020-06-18 | Outpatient (CLI) | payer MEDICARE, OTHER ==
[~2020-06-18] MED LIST changes: -ADV250 IH; +CLON-592 PO; -CLON.5 PO; +FLUT1DIS6 IH; -HYDR-3289 PO; +HYDR-4400 PO
[2020-06-18 11:31] LABS: BASOPHILS % (AUTO) 0.3 % (0.0-2.0); EOSINOPHILS % (AUTO) 7.7 % (1.0-6.0); HEMATOCRIT 34.9 % (36-46); HEMOGLOBIN 11.3 g/dL (12.0-16.0); LYMPHOCYTES # (AUTO) 1.7 K/uL (1.0-4.8); LYMPHOCYTES % (AUTO) 19.2 % (22.0-44.0); MEAN CORPUSCULAR HEMOGLOBIN 30.7 pg (26.0-34.0); MEAN CORPUSCULAR HGB CONC 32.3 G/dL (31.0-37.0); MEAN CORPUSCULAR VOLUME 95 fL (80-100); MONOCYTES # (AUTO) 0.6 K/uL (0.1-1.0); MONOCYTES % (AUTO) 6.3 % (2.0-9.0); NEUTROPHILS % (AUTO) 66.5 % (40.0-70.0); PLATELET COUNT (AUTO) 347 K/uL (150-450); RED BLOOD CELL COUNT(AUTO) 3.67 MIL/uL (4.00-5.20); RED CELL DISTRIBUTION WIDTH 18.9 % (11.5-14.5)
[2020-06-18 11:45] LABS: HEMOGLOBIN A1C 5.6 % (3.8-5.6)
[2020-06-18 12:01] LABS: THYROID STIMULATING HORMONE 2.95 uIU/mL (0.36-3.74)
== END | disposition home or self-care (01) ==
LOC: LABPV 09:50
PROVIDERS: ATTEND Internal Medicine
DX: E11.69 Type 2 diabetes mellitus with other specified complication (principal); D64.9 Anemia, unspecified; F41.1 Generalized anxiety disorder
CPT/HCPCS: 82728; 83036; 83540; 83550; 84443

== ENCOUNTER → 2020-11-15 | Outpatient (CLI) | payer MEDICARE, OTHER ==
[~2020-11-15] MED LIST changes: +ASPI-1450 PO; -ASPI-728 PO
[2020-11-15 12:52] LABS: HEMOGLOBIN A1C 7.5 % (3.8-5.6)
[2020-11-15 13:01] LABS: BILIRUBIN,TOTAL 0.3 mg/dL (0.1-1.0); CHOL/HDL RATIO 2.4 (3.9-5.7); CREATININE 1.04 mg/dL (0.60-1.30); FREE T4 (FREE THYROXINE) 0.79 ng/dL (0.76-1.46); POTASSIUM 4.4 mmol/L (3.5-5.1); THYROID STIMULATING HORMONE 2.82 uIU/mL (0.36-3.74); TOTAL PROTEIN, SERUM 6.5 g/dL (6.4-8.2)
[2020-11-15 16:49] LABS: BASOPHILS % (AUTO) 0.3 % (0.0-2.0); EOSINOPHILS % (AUTO) 0.8 % (1.0-6.0); HEMATOCRIT 35.2 % (36-46); HEMOGLOBIN 11.6 g/dL (12.0-16.0); LYMPHOCYTES # (AUTO) 1.7 K/uL (1.0-4.8); LYMPHOCYTES % (AUTO) 12.9 % (22.0-44.0); MEAN CORPUSCULAR VOLUME 94 fL (80-100); MONOCYTES # (AUTO) 0.7 K/uL (0.1-1.0); MONOCYTES % (AUTO) 5.2 % (2.0-9.0); NEUTROPHILS # (AUTO) 10.9 K/uL (1.8-7.7); NEUTROPHILS % (AUTO) 80.8 % (40.0-70.0); PLATELET COUNT (AUTO) 351 K/uL (150-450); RED BLOOD CELL COUNT(AUTO) 3.75 MIL/uL (4.00-5.20); RED CELL DISTRIBUTION WIDTH 15.8 % (11.5-14.5)
== END | disposition home or self-care (01) ==
LOC: LABMN 10:47
PROVIDERS: ATTEND Internal Medicine Cardiovascular Disease
DX: I11.0 Hypertensive heart disease with heart failure (principal); I15.9 Secondary hypertension, unspecified; E11.8 Type 2 diabetes mellitus with unspecified complications; E55.9 Vitamin D deficiency, unspecified; D56.5 Hemoglobin E-beta thalassemia
CPT/HCPCS: 82306; 83036; 83735; 84439; 84443

== ENCOUNTER 2021-03-10 15:31 | Emergency (ER) | payer MEDICARE, OTHER ==
[~2021-03-10] VITALS: Ht 162.6 cm; Wt 113.6 kg
[~2021-03-10 15:31] MED LIST changes: -METH1T PO; +METH1TAB66 PO
[2021-03-10 15:53] LABS: GLUCOSE,POINT OF CARE 183 MG/DL (70-110)
[2021-03-10] MEDS ORDERED: KETOROLAC TROMETHAMINE 10 MG TABLET PO ONE (17:00)
[2021-03-10 17:03] LABS: APPEARANCE,URINE CLEAR (CLEAR); BILIRUBIN,URINE NEGATIVE (NEGATIVE); GLUCOSE, URINE (UA) NEGATIVE (NEGATIVE); KETONES,URINE NEGATIVE (NEGATIVE); LEUKOCYTE ESTERASE ,URINE SMALL (NEGATIVE); NITRATE,URINE NEGATIVE (NEGATIVE); OCCULT BLOOD,URINE NEGATIVE (NEGATIVE); PH,URINE 5.5 (5.0-8.0); PROTEIN,URINE NEGATIVE (NEGATIVE); UROBILINOGEN,URINE 0.2 mg/dL (<=1.0)
[2021-03-10 17:35] LABS: BACTERIA,URINE None Seen /HPF (None Seen); RBC,URINE None Seen /HPF (0-2)
[2021-03-10 19:30] VITALS: BP 141/73
== END 2021-03-10 19:37 | disposition home or self-care (01) ==
LOC: EMS 15:34
DX: S46.212A Strain of muscle, fascia and tendon of other parts of biceps, left arm, initial encounter (principal); B37.3 Candidiasis of vulva and vagina; X58.XXXA Exposure to other specified factors, initial encounter; Y93.89 Activity, other specified; Y92.89 Other specified places as the place of occurrence of the external cause; Y99.8 Other external cause status
CPT/HCPCS: 81001; 82962; 99284

== ENCOUNTER 2021-05-09 21:22 | Inpatient (IN) | payer MEDICARE, OTHER ==
[~2021-05-09] VITALS: Ht 160 cm; Wt 92.9 kg
[~2021-05-09 21:22] MED LIST changes: +CALC-358 PO; -CALC-52 PO; +DOCU-270 PO; -DOCU-275 PO
[2021-05-09] MEDS ORDERED: MAG HYDROX/AL HYDROX/SIMETH 30 ML SUSP UDCUP PO ONE (22:45)
[2021-05-09] MEDS ORDERED: FAMOTIDINE 20 MG TABLET PO ONE (22:45)
[2021-05-09 23:00] LABS: BASOPHILS % (AUTO) 0.3 % (0.0-2.0); EOSINOPHILS % (AUTO) 6.7 % (1.0-6.0); LYMPHOCYTES # (AUTO) 2.1 K/uL (1.0-4.8); LYMPHOCYTES % (AUTO) 22.8 % (22.0-44.0); MEAN CORPUSCULAR HGB CONC 29.9 G/dL (31.0-37.0); MEAN CORPUSCULAR VOLUME 77 fL (80-100); MONOCYTES # (AUTO) 0.6 K/uL (0.1-1.0); MONOCYTES % (AUTO) 6.7 % (2.0-9.0); NEUTROPHILS % (AUTO) 63.5 % (40.0-70.0); PLATELET COUNT (AUTO) 697 K/uL (150-450); RED BLOOD CELL COUNT(AUTO) 2.17 MIL/uL (4.00-5.20); RED CELL DISTRIBUTION WIDTH 25.4 % (11.5-14.5)
[2021-05-09 23:07] LABS: HEMATOCRIT 16.7 % (36-46)
[2021-05-09 23:16] LABS: CALCIUM, TOTAL 7.9 mg/dL (8.8-10.5); CREATININE 1.33 mg/dL (0.60-1.30); POTASSIUM 3.5 mmol/L (3.5-5.1)
[2021-05-09 23:22] LABS: ALBUMIN 2.2 g/dL (3.4-5.0); BILIRUBIN,TOTAL 0.2 mg/dL (0.1-1.0); TOTAL PROTEIN, SERUM 5.9 g/dL (6.4-8.2)
[2021-05-09 23:32] LABS: PROTHROMBIN TIME 10.3 SEC (9.4-11.6)
[2021-05-09 23:42] LABS: COVID AG,FIA SOURCE NASOPHARYNGEAL
[2021-05-09 23:43] LABS: PATHOLOGY REVIEW, DIFF YES
[2021-05-09] MEDS ORDERED: HYDROCODONE/ACETAMINOPHEN 5-325 MG TABLET PO ONE (23:45)
[2021-05-09] MEDS ORDERED: ONDANSETRON HCL 4 MG/2 ML VIAL IVP PRN (23:45)
[2021-05-10] VITALS (21 sets, daily range): BP systolic 105–187; BP diastolic 45–94
[2021-05-10] MEDS: PANTOPRAZOLE SODIUM 40 MG DR TABLET PO SCH ×3 (00:10→14:26)
[2021-05-10] MEDS: ACETAMINOPHEN 325 MG TABLET PO PRN ×2 (03:09→07:37)
[2021-05-10] MEDS ORDERED: SODIUM CHLORIDE 0.9% 250 ML IV ONE (04:06)
[2021-05-10] MEDS: DOCUSATE SODIUM 100 MG CAPSULE PO SCH ×2 (07:36→20:12)
[2021-05-10 08:15] LABS: BASOPHILS % (AUTO) 0.3 % (0.0-2.0); EOSINOPHILS % (AUTO) 8.6 % (1.0-6.0); HEMATOCRIT 24.7 % (36-46); HEMOGLOBIN 7.8 g/dL (12.0-16.0); LYMPHOCYTES # (AUTO) 1.9 K/uL (1.0-4.8); LYMPHOCYTES % (AUTO) 20.4 % (22.0-44.0); MEAN CORPUSCULAR HEMOGLOBIN 25.2 pg (26.0-34.0); MEAN CORPUSCULAR HGB CONC 31.6 G/dL (31.0-37.0); MEAN CORPUSCULAR VOLUME 80 fL (80-100); MONOCYTES # (AUTO) 0.9 K/uL (0.1-1.0); MONOCYTES % (AUTO) 9.8 % (2.0-9.0); NEUTROPHILS # (AUTO) 5.6 K/uL (1.8-7.7); NEUTROPHILS % (AUTO) 60.9 % (40.0-70.0); PLATELET COUNT (AUTO) 707 K/uL (150-450); RED CELL DISTRIBUTION WIDTH 23.6 % (11.5-14.5)
[2021-05-10] MEDS ORDERED: PANTOPRAZOLE SODIUM 80 MG in SODIUM CHLORIDE 0.9% 100 ML IV SCH (10:15)
[2021-05-10] MEDS ORDERED: NIFEdipine 60 MG ER TABLET PO SCH (10:30)
[2021-05-10 12:02] LABS: GLUCOMETER DEV NAME(LOC) 6N.1; GLUCOSE,POINT OF CARE 136 MG/DL (70-110)
[2021-05-10] MEDS: FLUTICASONE/VILANTEROL 200-25 MCG/INH INHALER [14] IH SCH (12:17)
[2021-05-10] MEDS: PROCHLORPERAZINE EDISYLATE 5 MG/ML 2 ML VIAL IVP PRN (12:21)
[2021-05-10] MEDS ORDERED: FentaNYL CITRATE PF 100 MCG/2 ML VIAL ONE (12:29)
[2021-05-10] MEDS ORDERED: MIDAZOLAM HCL 5 MG/ML VIAL ONE (12:29)
[2021-05-10] MEDS ORDERED: SODIUM CHLORIDE 0.9% 1,000 ML ONE (12:35)
[2021-05-10] MEDS: HYDROCODONE/ACETAMINOPHEN 5-325 MG TABLET PO PRN (14:26)
[2021-05-10] MEDS ORDERED: ROPINIRole HCL 0.25 MG TABLET PO ONE (14:30)
[2021-05-10 17:12] LABS: GLUCOMETER DEV NAME(LOC) 6N.1; GLUCOSE,POINT OF CARE 152 MG/DL (70-110)
[2021-05-10 18:26] LABS: CALCIUM, TOTAL 8.1 mg/dL (8.8-10.5); CREATININE 1.07 mg/dL (0.60-1.30)
[2021-05-10] MEDS: ATORVASTATIN CALCIUM 20 MG TABLET PO SCH (20:12)
[2021-05-10] MEDS: ASCORBIC ACID 500 MG TABLET PO SCH (20:12)
[2021-05-10] MEDS: INSULIN GLARGINE,HUM.REC.ANLOG 100 UNITS/ML SQ SCH (20:20)
[2021-05-10] MEDS: ROPINIRole HCL 0.25 MG TABLET PO PRN (20:21)
[2021-05-10] MEDS ORDERED: FLUTICASONE/SALMETEROL 250-50 MCG/INH INHALER [60] IH SCH (21:00)
[2021-05-10] MEDS ORDERED: LOPERAMIDE HCL 2 MG CAPSULE PO PRN (21:00)
[2021-05-10] MEDS ORDERED: ROPINIRole HCL 1 MG TABLET PO SCH (21:00)
[2021-05-10] MEDS: ZOLPIDEM TARTRATE 5 MG TABLET PO PRN (21:17)
[2021-05-11 01:27] LABS: GLUCOMETER DEV NAME(LOC) 6S.1; GLUCOSE,POINT OF CARE 270 MG/DL (70-110)
[2021-05-11 02:24] LABS: APPEARANCE,URINE CLOUDY (CLEAR); BILIRUBIN,URINE NEGATIVE (NEGATIVE); GLUCOSE, URINE (UA) NEGATIVE (NEGATIVE); KETONES,URINE NEGATIVE (NEGATIVE); LEUKOCYTE ESTERASE ,URINE LARGE (NEGATIVE); NITRATE,URINE NEGATIVE (NEGATIVE); OCCULT BLOOD,URINE TRACE (NEGATIVE); PH,URINE 7.5 (5.0-8.0); PROTEIN,URINE NEGATIVE (NEGATIVE); UROBILINOGEN,URINE 0.2 mg/dL (<=1.0)
[2021-05-11 02:39] LABS: BACTERIA,URINE Many /HPF (None Seen); RBC,URINE 0-2 /HPF (0-2); SQUAMOUS EPITHELIAL CELL,UR Few /LPF (None Seen); WBC,URINE 51-100 /HPF (0-5)
[2021-05-11 05:45] VITALS: BP 148/56
[2021-05-11] MEDS ORDERED: PROPOFOL 1% 20 ML VIAL IVP ONE (06:14)
[2021-05-11 06:43] LABS: BASOPHILS % (AUTO) 0.4 % (0.0-2.0); EOSINOPHILS % (AUTO) 8.6 % (1.0-6.0); HEMATOCRIT 23.8 % (36-46); HEMOGLOBIN 7.3 g/dL (12.0-16.0); LYMPHOCYTES # (AUTO) 2.1 K/uL (1.0-4.8); LYMPHOCYTES % (AUTO) 24.6 % (22.0-44.0); MEAN CORPUSCULAR HEMOGLOBIN 24.6 pg (26.0-34.0); MEAN CORPUSCULAR HGB CONC 30.8 G/dL (31.0-37.0); MEAN CORPUSCULAR VOLUME 80 fL (80-100); MONOCYTES # (AUTO) 0.8 K/uL (0.1-1.0); MONOCYTES % (AUTO) 9.7 % (2.0-9.0); NEUTROPHILS # (AUTO) 4.8 K/uL (1.8-7.7); NEUTROPHILS % (AUTO) 56.7 % (40.0-70.0); PLATELET COUNT (AUTO) 702 K/uL (150-450); RED BLOOD CELL COUNT(AUTO) 2.98 MIL/uL (4.00-5.20); RED CELL DISTRIBUTION WIDTH 23.3 % (11.5-14.5)
[2021-05-11 07:19] LABS: CALCIUM, TOTAL 8.4 mg/dL (8.8-10.5); CREATININE 0.98 mg/dL (0.60-1.30); MAGNESIUM 1.9 mg/dL (1.80-2.40); PHOSPHORUS 3.2 mg/dL (2.5-4.9); POTASSIUM 3.8 mmol/L (3.5-5.1)
[2021-05-11 07:47] LABS: GLUCOMETER DEV NAME(LOC) 6N.1; GLUCOSE,POINT OF CARE 94 MG/DL (70-110)
[2021-05-11 07:56] VITALS: BP 154/62
[2021-05-11] MEDS: ROPINIRole HCL 0.25 MG TABLET PO PRN ×2 (08:09→16:48)
[2021-05-11] MEDS: PANTOPRAZOLE SODIUM 40 MG DR TABLET PO SCH (08:09)
[2021-05-11] MEDS: FLUTICASONE/VILANTEROL 200-25 MCG/INH INHALER [14] IH SCH (08:10)
[2021-05-11] MEDS: DOCUSATE SODIUM 100 MG CAPSULE PO SCH ×2 (08:10→21:00)
[2021-05-11] MEDS: AmLODIPine BESYLATE 10 MG TABLET PO SCH (08:15)
[2021-05-11] MEDS: HYDROCODONE/ACETAMINOPHEN 5-325 MG TABLET PO PRN ×2 (08:16→16:48)
[2021-05-11] MEDS: INSULIN GLARGINE,HUM.REC.ANLOG 100 UNITS/ML SQ SCH ×2 (08:18→20:16)
[2021-05-11] MEDS ORDERED: ASPIRIN 81 MG CHEWABLE TABLET PO SCH (09:00)
[2021-05-11] MEDS: CIPROFLOXACIN HCL 250 MG TABLET PO SCH ×2 (10:28→20:11)
[2021-05-11] MEDS: PROCHLORPERAZINE EDISYLATE 5 MG/ML 2 ML VIAL IVP PRN (12:53)
[2021-05-11] MEDS: ACETAMINOPHEN 325 MG TABLET PO PRN (13:02)
[2021-05-11 19:58] VITALS: BP 158/61
[2021-05-11] MEDS: ASCORBIC ACID 500 MG TABLET PO SCH (20:10)
[2021-05-11] MEDS: ATORVASTATIN CALCIUM 20 MG TABLET PO SCH (20:11)
[2021-05-11] MEDS ORDERED: HYDROCODONE/ACETAMINOPHEN 5-325 MG TABLET PO PRN ×2 (21:00)
[2021-05-11] MEDS: ZOLPIDEM TARTRATE 5 MG TABLET PO PRN (22:14)
[2021-05-12] MEDS: ROPINIRole HCL 0.25 MG TABLET PO PRN (02:42)
[2021-05-12] MEDS: ACETAMINOPHEN 325 MG TABLET PO PRN ×2 (02:44→13:16)
[2021-05-12] MEDS: PROCHLORPERAZINE EDISYLATE 5 MG/ML 2 ML VIAL IVP PRN (02:45)
[2021-05-12 04:34] LABS: GLUCOMETER DEV NAME(LOC) 6S.1; GLUCOSE,POINT OF CARE 185 MG/DL (70-110)
[2021-05-12 05:30] VITALS: BP 149/68
[2021-05-12 06:47] LABS: ANION GAP 10 mmol/L (8-16); CALCIUM, TOTAL 8.7 mg/dL (8.8-10.5); CARBON DIOXIDE 26 mmol/L (22-29); CHLORIDE 107 mmol/L (98-107); CREATININE 0.89 mg/dL (0.60-1.30); GLUCOSE,RANDOM 76 mg/dL (70-110); POTASSIUM 4.4 mmol/L (3.5-5.1); SODIUM SERUM 143 mmol/L (136-145); UREA NITROGEN, BLOOD 7 mg/dL (7-18)
[2021-05-12 06:55] LABS: GLOMERULAR FILTR. RATE CALC > 60 mL/min (>60)
[2021-05-12 07:10] LABS: BASOPHILS % (AUTO) 0.3 % (0.0-2.0); EOSINOPHILS % (AUTO) 11.9 % (1.0-6.0); HEMATOCRIT 25.5 % (36-46); HEMOGLOBIN 7.7 g/dL (12.0-16.0); LYMPHOCYTES # (AUTO) 2.1 K/uL (1.0-4.8); LYMPHOCYTES % (AUTO) 25.5 % (22.0-44.0); MEAN CORPUSCULAR HEMOGLOBIN 24.4 pg (26.0-34.0); MEAN CORPUSCULAR HGB CONC 30.4 G/dL (31.0-37.0); MEAN CORPUSCULAR VOLUME 80 fL (80-100); MONOCYTES # (AUTO) 0.8 K/uL (0.1-1.0); MONOCYTES % (AUTO) 9.5 % (2.0-9.0); NEUTROPHILS # (AUTO) 4.3 K/uL (1.8-7.7); NEUTROPHILS % (AUTO) 52.8 % (40.0-70.0); PLATELET COUNT (AUTO) 746 K/uL (150-450); RED BLOOD CELL COUNT(AUTO) 3.17 MIL/uL (4.00-5.20); RED CELL DISTRIBUTION WIDTH 24.2 % (11.5-14.5)
[2021-05-12 07:11] LABS: GLUCOMETER DEV NAME(LOC) 6S.1; GLUCOSE,POINT OF CARE 69 MG/DL (70-110)
[2021-05-12 07:34] VITALS: BP 154/63
[2021-05-12] MEDS: DOCUSATE SODIUM 100 MG CAPSULE PO SCH (08:15)
[2021-05-12] MEDS: AmLODIPine BESYLATE 10 MG TABLET PO SCH (08:15)
[2021-05-12] MEDS: CIPROFLOXACIN HCL 250 MG TABLET PO SCH (08:17)
[2021-05-12] MEDS: PANTOPRAZOLE SODIUM 40 MG DR TABLET PO SCH (08:29)
[2021-05-12] MEDS ORDERED: INSULIN GLARGINE,HUM.REC.ANLOG 100 UNITS/ML SQ SCH (09:00)
[2021-05-12 10:27] LABS: GLUCOMETER DEV NAME(LOC) 6N.1; GLUCOSE,POINT OF CARE 194 MG/DL (70-110)
[2021-05-12 11:32] VITALS: BP 155/63
[2021-05-12 13:30] LABS: GLUCOMETER DEV NAME(LOC) 6N.1; GLUCOSE,POINT OF CARE 151 MG/DL (70-110)
[2021-05-13] MEDS ORDERED: INSULIN GLARGINE,HUM.REC.ANLOG 100 UNITS/ML SQ SCH (09:00)
== END 2021-05-12 13:15 | DRG 378 ==
LOC: EMS 21:26 → 5S 05-10 00:23 → 6N 05-10 11:02
PROVIDERS: ADMIT Internal Medicine; ATTEND Internal Medicine
PROC: 0DB98ZX Excision of Duodenum, Via Natural or Artificial Opening Endoscopic, Diagnostic (ICD-10-PCS; 2021-05-10)
PROC: 0DB68ZX Excision of Stomach, Via Natural or Artificial Opening Endoscopic, Diagnostic (ICD-10-PCS; 2021-05-10)
PROC: 30230N1 Transfusion of Nonautologous Red Blood Cells into Peripheral Vein, Open Approach (ICD-10-PCS; principal; 2021-05-10 13:45)
DX: K29.01 Acute gastritis with bleeding (principal); E87.1 Hypo-osmolality and hyponatremia; D62 Acute posthemorrhagic anemia; N17.9 Acute kidney failure, unspecified; N39.0 Urinary tract infection, site not specified; I82.401 Acute embolism and thrombosis of unspecified deep veins of right lower extremity; E11.22 Type 2 diabetes mellitus with diabetic chronic kidney disease; I12.9 Hypertensive chronic kidney disease with stage 1 through stage 4 chronic kidney disease, or unspecified chronic kidney disease; Z96.651 Presence of right artificial knee joint; Z68.36 Body mass index [BMI] 36.0-36.9, adult; E03.9 Hypothyroidism, unspecified; M79.7 Fibromyalgia; Z20.822 Contact with and (suspected) exposure to COVID-19; F41.1 Generalized anxiety disorder; J45.909 Unspecified asthma, uncomplicated; K44.9 Diaphragmatic hernia without obstruction or gangrene; E66.01 Morbid (severe) obesity due to excess calories; E11.40 Type 2 diabetes mellitus with diabetic neuropathy, unspecified; G25.81 Restless legs syndrome; F32.9 Major depressive disorder, single episode, unspecified; N18.30 Chronic kidney disease, stage 3 unspecified; I25.10 Atherosclerotic heart disease of native coronary artery without angina pectoris; K21.9 Gastro-esophageal reflux disease without esophagitis; G89.29 Other chronic pain; M48.061 Spinal stenosis, lumbar region without neurogenic claudication; F41.9 Anxiety disorder, unspecified; K58.9 Irritable bowel syndrome, unspecified; Z79.899 Other long term (current) drug therapy; Z90.710 Acquired absence of both cervix and uterus; Z90.5 Acquired absence of kidney; Z79.4 Long term (current) use of insulin; Z79.51 Long term (current) use of inhaled steroids; Z79.82 Long term (current) use of aspirin; Z88.8 Allergy status to other drugs, medicaments and biological substances; Z82.49 Family history of ischemic heart disease and other diseases of the circulatory system; Z82.5 Family history of asthma and other chronic lower respiratory diseases
CPT/HCPCS: 71045; 76770; 80048; 80053; 81001; 82271; 82550; 82962; 83690; 83735; 83880; 84100; 84484; 85025; 85610; 85730; 86850; 86900; 86901; 86923; 87081; 87086; 88305; 88312; 88313; 92610; 93005; 93970; 99285; C9113; J0780; J1815; J2250; J2704; J3010; J3535; J7030; J7050; P9016; Q9967; 36415-L1; 36415-TC

== ENCOUNTER 2021-07-04 17:34 | Emergency (ER) | payer MEDICARE, OTHER ==
[~2021-07-04] VITALS: Ht 160 cm; Wt 90.9 kg
[~2021-07-04 17:34] MED LIST changes: -ASPI-1450 PO; -AZEL137S8 NASAL; -DIPH25 PO; -DULA1.5P SQ; -FLUT16H NASAL; -FLUV50 PO; -FURO40 PO; -GLUC-145 PO; -HYDR10TA31 PO; -MAGN200T4 PO; -METH-372 PO; -METH1TAB66 PO; -MIRA25TA PO; -MULT1CAP32 PO; -NITR0.4T52 SL; -OMEP20 PO; -PHEN95TA23 PO; -ZOLP-280 PO
[2021-07-04] MEDS ORDERED: DOXYCYCLINE HYCLATE 100 MG TABLET PO ONE (19:00)
[2021-07-04] MEDS ORDERED: HYDROCODONE/ACETAMINOPHEN 5-325 MG TABLET PO ONE (19:00)
[2021-07-04 19:22] LABS: BASOPHILS % (AUTO) 0.4 % (0.0-2.0); EOSINOPHILS % (AUTO) 7.9 % (1.0-6.0); HEMATOCRIT 30.5 % (36-46); HEMOGLOBIN 9.3 g/dL (12.0-16.0); LYMPHOCYTES # (AUTO) 1.2 K/uL (1.0-4.8); LYMPHOCYTES % (AUTO) 16.5 % (22.0-44.0); MEAN CORPUSCULAR HEMOGLOBIN 25.3 pg (26.0-34.0); MEAN CORPUSCULAR HGB CONC 30.5 G/dL (31.0-37.0); MEAN CORPUSCULAR VOLUME 83 fL (80-100); MONOCYTES # (AUTO) 0.5 K/uL (0.1-1.0); MONOCYTES % (AUTO) 6.3 % (2.0-9.0); NEUTROPHILS % (AUTO) 68.9 % (40.0-70.0); PLATELET COUNT (AUTO) 425 K/uL (150-450); RED BLOOD CELL COUNT(AUTO) 3.68 MIL/uL (4.00-5.20)
[2021-07-04 19:25] LABS: CALCIUM, TOTAL 9.1 mg/dL (8.8-10.5); CREATININE 1.03 mg/dL (0.60-1.30); POTASSIUM 4.6 mmol/L (3.5-5.1)
[2021-07-04 19:31] LABS: ALBUMIN 3.2 g/dL (3.4-5.0); BILIRUBIN,TOTAL 0.3 mg/dL (0.1-1.0); TOTAL PROTEIN, SERUM 7.1 g/dL (6.4-8.2)
[2021-07-04 20:02] VITALS: BP 158/65
== END 2021-07-04 21:06 | disposition home or self-care (01) ==
LOC: EMS 17:34
DX: L03.115 Cellulitis of right lower limb (principal); I11.0 Hypertensive heart disease with heart failure; I50.9 Heart failure, unspecified; E11.9 Type 2 diabetes mellitus without complications; J45.909 Unspecified asthma, uncomplicated; K21.9 Gastro-esophageal reflux disease without esophagitis; Z88.1 Allergy status to other antibiotic agents; Z88.5 Allergy status to narcotic agent; Z88.8 Allergy status to other drugs, medicaments and biological substances; Z79.4 Long term (current) use of insulin; Z79.899 Other long term (current) drug therapy
CPT/HCPCS: 80053; 85025; 93971; 99284

== ENCOUNTER → 2021-10-05 | Outpatient (CLI) | payer MEDICARE, OTHER ==
[2021-10-05 11:49] LABS: BASOPHILS % (AUTO) 0.2 % (0.0-2.0); EOSINOPHILS % (AUTO) 0.1 % (1.0-6.0); HEMATOCRIT 37.1 % (36-46); HEMOGLOBIN 12.2 g/dL (12.0-16.0); LYMPHOCYTES # (AUTO) 0.9 K/uL (1.0-4.8); LYMPHOCYTES % (AUTO) 11.3 % (22.0-44.0); MEAN CORPUSCULAR HEMOGLOBIN 28.2 pg (26.0-34.0); MEAN CORPUSCULAR HGB CONC 32.8 G/dL (31.0-37.0); MEAN CORPUSCULAR VOLUME 86 fL (80-100); MONOCYTES # (AUTO) 0.4 K/uL (0.1-1.0); MONOCYTES % (AUTO) 4.8 % (2.0-9.0); NEUTROPHILS # (AUTO) 6.4 K/uL (1.8-7.7); NEUTROPHILS % (AUTO) 83.6 % (40.0-70.0); PLATELET COUNT (AUTO) 309 K/uL (150-450); RED BLOOD CELL COUNT(AUTO) 4.32 MIL/uL (4.00-5.20); RED CELL DISTRIBUTION WIDTH 16.9 % (11.5-14.5)
[2021-10-05 12:24] LABS: ALBUMIN 3.3 g/dL (3.4-5.0); BILIRUBIN,TOTAL 0.3 mg/dL (0.1-1.0); CALCIUM, TOTAL 9.3 mg/dL (8.8-10.5); CHOL/HDL RATIO 2.3 (3.9-5.7); CREATININE 0.99 mg/dL (0.60-1.30); POTASSIUM 5.1 mmol/L (3.5-5.1); TOTAL PROTEIN, SERUM 7.3 g/dL (6.4-8.2)
[2021-10-05 12:26] LABS: FREE T4 (FREE THYROXINE) 0.93 ng/dL (0.76-1.46); MAGNESIUM 2.1 mg/dL (1.80-2.40); THYROID STIMULATING HORMONE 0.9 uIU/mL (0.36-3.74)
[2021-10-05 12:39] LABS: HEMOGLOBIN A1C 6.9 % (3.8-5.6)
== END | disposition home or self-care (01) ==
LOC: LABPV 10:13
PROVIDERS: ATTEND Internal Medicine
DX: E11.69 Type 2 diabetes mellitus with other specified complication (principal); E78.5 Hyperlipidemia, unspecified; E55.9 Vitamin D deficiency, unspecified; I50.9 Heart failure, unspecified
CPT/HCPCS: 80053; 80061; 82306; 83036; 83735; 83880; 84439; 84443; 84481; 85025

== ENCOUNTER → 2021-11-01 | Outpatient (CLI) | payer MEDICARE, OTHER ==
[2021-11-01 12:04] LABS: HEMATOCRIT 36.3 % (36-46)
[2021-11-01 12:40] LABS: HEMOGLOBIN A1C 6.6 % (3.8-5.6)
[2021-11-01 12:44] LABS: ANION GAP 11 mmol/L (8-16); CALCIUM, TOTAL 9.3 mg/dL (8.8-10.5); CARBON DIOXIDE 28 mmol/L (22-29); CHLORIDE 100 mmol/L (98-107); CHOL/HDL RATIO 2.2 (3.9-5.7); CHOLESTEROL 110 mg/dL (131-200); GLUCOSE,RANDOM 129 mg/dL (70-110); HDL CHOLESTEROL 49 mg/dL (40-60); LDL CHOL (CALC.) 42 mg/dL (0-130); POTASSIUM 4.5 mmol/L (3.5-5.1); SODIUM SERUM 139 mmol/L (136-145); TRIGLYCERIDES 94 mg/dL (15-150); UREA NITROGEN, BLOOD 22 mg/dL (7-18)
[2021-11-01 12:50] LABS: GLOMERULAR FILTR. RATE CALC > 60 mL/min (>60)
[2021-11-02 10:20] LABS: APPEARANCE,URINE CLEAR (CLEAR); BILIRUBIN,URINE NEGATIVE (NEGATIVE); GLUCOSE, URINE (UA) NEGATIVE (NEGATIVE); KETONES,URINE NEGATIVE (NEGATIVE); LEUKOCYTE ESTERASE ,URINE LARGE (NEGATIVE); NITRATE,URINE NEGATIVE (NEGATIVE); OCCULT BLOOD,URINE NEGATIVE (NEGATIVE); PROTEIN,URINE NEGATIVE (NEGATIVE); SPECIFIC GRAVITIY, URINE 1.011 (1.003-1.030); UROBILINOGEN,URINE <=1.0 mg/dL (<=1.0)
[2021-11-02 11:09] LABS: BACTERIA,URINE Many /HPF (None Seen); RBC,URINE None Seen /HPF (0-2)
== END | disposition home or self-care (01) ==
LOC: LABPV 10:06
PROVIDERS: ATTEND Internal Medicine Nephrology
DX: E11.22 Type 2 diabetes mellitus with diabetic chronic kidney disease (principal); N18.30 Chronic kidney disease, stage 3 unspecified; D63.1 Anemia in chronic kidney disease; Z79.899 Other long term (current) drug therapy
CPT/HCPCS: 80048; 80061; 81001; 83036; 83970; 85014; 85018; 87086

== ENCOUNTER 2022-03-23 00:28 | Inpatient (IN) | payer MEDICARE, OTHER ==
[~2022-03-23] VITALS: Ht 160 cm; Wt 88.6 kg
[~2022-03-23 00:28] MED LIST changes: -DOCU-270 PO; +DOCU-385 PO
[2022-03-23] MEDS ORDERED: DEXTROSE 50%-WATER 25 GM/50 ML SYRINGE IVP ONE ×3 (00:43→02:00)
[2022-03-23 01:11] LABS: BASOPHILS % (AUTO) 0.3 % (0.0-2.0); EOSINOPHILS % (AUTO) 4.2 % (1.0-6.0); HEMOGLOBIN 12.5 g/dL (12.0-16.0); LYMPHOCYTES # (AUTO) 2.5 K/uL (1.0-4.8); LYMPHOCYTES % (AUTO) 23.1 % (22.0-44.0); MEAN CORPUSCULAR HEMOGLOBIN 31.3 pg (26.0-34.0); MEAN CORPUSCULAR HGB CONC 33.8 G/dL (31.0-37.0); MEAN CORPUSCULAR VOLUME 93 fL (80-100); MONOCYTES # (AUTO) 0.7 K/uL (0.1-1.0); MONOCYTES % (AUTO) 6.9 % (2.0-9.0); NEUTROPHILS % (AUTO) 65.5 % (40.0-70.0); PLATELET COUNT (AUTO) 353 K/uL (150-450); RED BLOOD CELL COUNT(AUTO) 3.99 MIL/uL (4.00-5.20)
[2022-03-23 01:25] LABS: ALBUMIN 3.2 g/dL (3.4-5.0); BILIRUBIN,TOTAL 0.3 mg/dL (0.1-1.0); CREATININE 0.93 mg/dL (0.60-1.30); POTASSIUM 3.8 mmol/L (3.5-5.1); TOTAL PROTEIN, SERUM 6.7 g/dL (6.4-8.2)
[2022-03-23 01:31] LABS: GLUCOSE,POINT OF CARE 101 MG/DL (70-110)
[2022-03-23] MEDS ORDERED: SODIUM CHLORIDE 77 MEQ in DEXTROSE 10%-WATER 1,000 ML IV ONE (02:00)
[2022-03-23 02:01] LABS: GLUCOSE,POINT OF CARE 49 MG/DL (70-110)
[2022-03-23 02:09] LABS: COVID AG,FIA SOURCE NASOPHARYNGEAL
[2022-03-23] MEDS ORDERED: 0.9% SODIUM CHLORIDE 10 ML SYRINGE IVP PRN (02:15)
[2022-03-23] MEDS ORDERED: ACETAMINOPHEN 325 MG TABLET PO PRN ×2 (02:15→03:00)
[2022-03-23 02:36] LABS: GLUCOSE,POINT OF CARE 98 MG/DL (70-110)
[2022-03-23] MEDS ORDERED: ONDANSETRON HCL 4 MG/2 ML VIAL IVP PRN (03:00)
[2022-03-23] MEDS ORDERED: ALBUTEROL SULFATE HFA 90 MCG/PUFF 8 GM INHALER IH PRN (03:00)
[2022-03-23] MEDS ORDERED: HYDROCODONE/ACETAMINOPHEN 5-325 MG TABLET PO ONE (03:00)
[2022-03-23 04:06] LABS: GLUCOSE,POINT OF CARE 94 MG/DL (70-110)
[2022-03-23] MEDS ORDERED: ASCO500 PO (04:53)
[2022-03-23] MEDS ORDERED: FURO40 PO (04:53)
[2022-03-23] MEDS ORDERED: MONT-35 PO (04:53)
[2022-03-23] MEDS ORDERED: METH1TAB66 PO (04:53)
[2022-03-23] MEDS ORDERED: HYDR-4072 PO (04:53)
[2022-03-23] MEDS ORDERED: CALC-1209 PO (04:53)
[2022-03-23] MEDS ORDERED: FERR325T27 PO (04:53)
[2022-03-23] MEDS ORDERED: ZOLP-280 PO (04:53)
[2022-03-23] MEDS ORDERED: ATOR10TA84 PO (04:53)
[2022-03-23] MEDS ORDERED: ASPI-1450 PO (04:53)
[2022-03-23] MEDS ORDERED: INSLAN SQ (04:53)
[2022-03-23] MEDS ORDERED: FLUT16H NASAL (04:53)
[2022-03-23 05:26] LABS: GLUCOSE,POINT OF CARE 107 MG/DL (70-110)
[2022-03-23] MEDS ORDERED: DULA4.5P SQ (05:26)
[2022-03-23] MEDS ORDERED: EMPA25TA3 PO (05:26)
[2022-03-23] MEDS ORDERED: FLUV50 PO (05:36)
[2022-03-23] MEDS ORDERED: NIFE60TA84 PO (05:36)
[2022-03-23] MEDS ORDERED: PREG25 PO (05:36)
[2022-03-23] MEDS ORDERED: METO25XL PO (05:36)
[2022-03-23] MEDS ORDERED: METH-659 PO (05:36)
[2022-03-23] MEDS ORDERED: OMEP20 PO (05:36)
[2022-03-23] MEDS ORDERED: ROPI0.2535 PO (05:41)
[2022-03-23] MEDS ORDERED: ZOLPIDEM TARTRATE 5 MG TABLET PO PRN (06:30)
[2022-03-23] MEDS ORDERED: DEXTROSE 50%-WATER 25 GM/50 ML SYRINGE IVP PRN (06:30)
[2022-03-23] MEDS ORDERED: HydrALAZINE HCL 20 MG/ML VIAL IVP PRN (06:45)
[2022-03-23 07:31] LABS: GLUCOSE,POINT OF CARE 131 MG/DL (70-110)
[2022-03-23] MEDS: HEPARIN SODIUM,PORCINE 5,000 UNITS/ML VIAL SQ SCH ×3 (08:00→23:29)
[2022-03-23] MEDS: HYDROCODONE/ACETAMINOPHEN 10-325 MG TABLET PO PRN ×3 (08:15→23:30)
[2022-03-23] MEDS: ASPIRIN 81 MG CHEWABLE TABLET PO SCH (08:16)
[2022-03-23] MEDS: ASCORBIC ACID 500 MG TABLET PO SCH ×2 (08:17→21:00)
[2022-03-23] MEDS: PREGABALIN 25 MG CAPSULE PO SCH ×3 (08:18→22:02)
[2022-03-23] MEDS: ClonazePAM 0.5 MG TABLET PO SCH ×2 (08:19→22:02)
[2022-03-23] MEDS: FERROUS SULFATE 325 MG EC TABLET PO SCH ×2 (08:20→16:21)
[2022-03-23] MEDS: ATORVASTATIN CALCIUM 10 MG TABLET PO SCH (08:29)
[2022-03-23] MEDS: NIFEdipine 60 MG ER TABLET PO SCH (08:30)
[2022-03-23] MEDS: METOPROLOL SUCCINATE 25 MG ER TABLET PO SCH (08:33)
[2022-03-23] MEDS: FluvoxaMINE MALEATE 50 MG TABLET PO SCH (08:34)
[2022-03-23] MEDS: FUROSEMIDE 40 MG TABLET PO SCH (08:35)
[2022-03-23] MEDS: MONTELUKAST SODIUM 10 MG TABLET PO SCH (08:36)
[2022-03-23] MEDS ORDERED: CALCIUM CARBONATE 500 MG CHEWABLE TABLET PO SCH (09:00)
[2022-03-23] MEDS ORDERED: AmLODIPine BESYLATE 10 MG TABLET PO SCH (09:00)
[2022-03-23] MEDS ORDERED: DICLOFENAC SODIUM 0.1% 2.5 ML OPHTHALMIC SOLUTION OU SCH (09:00)
[2022-03-23 09:46] LABS: GLUCOSE,POINT OF CARE 237 MG/DL (70-110)
[2022-03-23] MEDS: METHOCARBAMOL 500 MG TABLET PO SCH ×2 (11:54→23:29)
[2022-03-23 12:26] LABS: GLUCOSE,POINT OF CARE 177 MG/DL (70-110)
[2022-03-23] MEDS: METHENAMINE HIPPURATE 1 GM TABLET PO SCH ×2 (13:49→21:00)
[2022-03-23] MEDS: FLUTICASONE PROPIONATE 50 MCG/SPRAY 16 GM NASAL SPRAY NASAL SCH (13:57)
[2022-03-23] MEDS: OMEPRAZOLE 20 MG CAPSULE PO SCH (13:57)
[2022-03-23 15:01] LABS: GLUCOSE,POINT OF CARE 148 MG/DL (70-110)
[2022-03-23 17:37] LABS: GLUCOSE,POINT OF CARE 158 MG/DL (70-110)
[2022-03-23] MEDS: DEXTROSE 5%-0.45% SODIUM CHL 1,000 ML IV SCH (18:03)
[2022-03-23 19:31] LABS: GLUCOMETER DEV NAME(LOC) ERT.5; GLUCOSE,POINT OF CARE 153 MG/DL (70-110)
[2022-03-23 20:00] VITALS: BP 111/54
[2022-03-23] MEDS ORDERED: TraZODone HCL 50 MG TABLET PO SCH (21:00)
[2022-03-23] MEDS ORDERED: ATORVASTATIN CALCIUM 20 MG TABLET PO SCH (21:00)
[2022-03-23] MEDS ORDERED: INSULIN GLARGINE,HUM.REC.ANLOG 100 UNITS/ML SQ SCH (21:00)
[2022-03-23] MEDS ORDERED: ASCORBIC ACID 500 MG TABLET PO SCH (21:00)
[2022-03-23] MEDS ORDERED: ROPINIRole HCL 0.25 MG TABLET PO SCH ×2 (21:00)
[2022-03-23] MEDS: INSULIN LISPRO 100 UNITS/ML SQ PRN (22:05)
[2022-03-23 23:56] LABS: GLUCOMETER DEV NAME(LOC) 5N.1C; GLUCOSE,POINT OF CARE 172 MG/DL (70-110)
[2022-03-24] VITALS: BP 122/54
[2022-03-24 04:00] VITALS: BP 116/49
[2022-03-24] MEDS: HYDROCODONE/ACETAMINOPHEN 10-325 MG TABLET PO PRN ×2 (05:33→17:25)
[2022-03-24] MEDS: DEXTROSE 5%-0.45% SODIUM CHL 1,000 ML IV SCH (06:50)
[2022-03-24 07:14] VITALS: BP 149/53
[2022-03-24] MEDS: FLUTICASONE PROPIONATE 50 MCG/SPRAY 16 GM NASAL SPRAY NASAL SCH (09:00)
[2022-03-24] MEDS: ASCORBIC ACID 500 MG TABLET PO SCH (09:00)
[2022-03-24] MEDS: METHENAMINE HIPPURATE 1 GM TABLET PO SCH (09:00)
[2022-03-24] MEDS: METOPROLOL SUCCINATE 25 MG ER TABLET PO SCH (09:00)
[2022-03-24] MEDS: ClonazePAM 0.5 MG TABLET PO SCH (09:09)
[2022-03-24] MEDS: ATORVASTATIN CALCIUM 10 MG TABLET PO SCH (09:09)
[2022-03-24] MEDS: METHOCARBAMOL 500 MG TABLET PO SCH (09:10)
[2022-03-24] MEDS: PREGABALIN 25 MG CAPSULE PO SCH ×2 (09:11→17:25)
[2022-03-24] MEDS: MONTELUKAST SODIUM 10 MG TABLET PO SCH (09:11)
[2022-03-24] MEDS: FUROSEMIDE 40 MG TABLET PO SCH (09:11)
[2022-03-24] MEDS: FERROUS SULFATE 325 MG EC TABLET PO SCH (09:12)
[2022-03-24] MEDS: ASPIRIN 81 MG CHEWABLE TABLET PO SCH (09:12)
[2022-03-24] MEDS: OMEPRAZOLE 20 MG CAPSULE PO SCH (09:12)
[2022-03-24] MEDS: FluvoxaMINE MALEATE 50 MG TABLET PO SCH (09:13)
[2022-03-24] MEDS: HEPARIN SODIUM,PORCINE 5,000 UNITS/ML VIAL SQ SCH ×2 (09:13→17:28)
[2022-03-24] MEDS: NIFEdipine 60 MG ER TABLET PO SCH (09:14)
[2022-03-24 11:08] VITALS: BP 122/55
[2022-03-24 15:31] VITALS: BP 126/52
[2022-03-24] MEDS: INSULIN LISPRO 100 UNITS/ML SQ PRN (17:29)
[2022-03-24 20:21] LABS: GLUCOMETER DEV NAME(LOC) 5S.2B; GLUCOSE,POINT OF CARE 186 MG/DL (70-110)
[2022-03-25 07:51] LABS: GLUCOMETER DEV NAME(LOC) 5N.1C; GLUCOSE,POINT OF CARE 167 MG/DL (70-110)
[2022-03-25 07:51] LABS: GLUCOMETER DEV NAME(LOC) 5N.1C; GLUCOSE,POINT OF CARE 124 MG/DL (70-110)
[2022-03-25 07:51] LABS: GLUCOMETER DEV NAME(LOC) 5N.1C; GLUCOSE,POINT OF CARE 124 MG/DL (70-110)
== END 2022-03-24 18:30 | disposition home or self-care (01) | DRG 638 ==
LOC: EMS 00:30 → 5S 18:00
PROVIDERS: ADMIT Internal Medicine; ATTEND Internal Medicine
DX: E11.649 Type 2 diabetes mellitus with hypoglycemia without coma (principal); I50.32 Chronic diastolic (congestive) heart failure; T38.3X1A Poisoning by insulin and oral hypoglycemic [antidiabetic] drugs, accidental (unintentional), initial encounter; E78.5 Hyperlipidemia, unspecified; I16.0 Hypertensive urgency; I11.0 Hypertensive heart disease with heart failure; J45.909 Unspecified asthma, uncomplicated; G89.4 Chronic pain syndrome; M79.7 Fibromyalgia; M19.90 Unspecified osteoarthritis, unspecified site; E66.01 Morbid (severe) obesity due to excess calories; F32.A Depression, unspecified; M48.00 Spinal stenosis, site unspecified; K21.9 Gastro-esophageal reflux disease without esophagitis; Z82.49 Family history of ischemic heart disease and other diseases of the circulatory system; Z82.5 Family history of asthma and other chronic lower respiratory diseases; Z88.9 Allergy status to unspecified drugs, medicaments and biological substances; Z90.710 Acquired absence of both cervix and uterus; Z79.4 Long term (current) use of insulin; Z68.34 Body mass index [BMI] 34.0-34.9, adult; Z88.8 Allergy status to other drugs, medicaments and biological substances; Z20.822 Contact with and (suspected) exposure to COVID-19
CPT/HCPCS: 80053; 82962; 85025; 92610; 99285; J1644; J1815; J7131

== ENCOUNTER 2024-02-10 15:23 | Emergency (ER) | payer MEDICARE, OTHER ==
[~2024-02-10] VITALS: Ht 160 cm; Wt 89.5 kg
[~2024-02-10 15:23] MED LIST changes: -AMLO-258 PO; +ASPI-1450 PO; +ATOR10TA PO; -ATOR20TA86 PO; +CALC-1209 PO; -CALC-358 PO; -CALC500T7 PO; -DICL2.5D8 OU; -DOCU-385 PO; +DULA4.5P SQ; +EMPA25TA3 PO; -FERR236T3 PO; +FERR325T27 PO; +FLUT16SP NASAL; -FLUT1DIS6 IH; +FLUV50 PO; +FURO40 PO; +HYDR-4072 PO; -HYDR-4400 PO; +METH-659 PO; +METH1TAB66 PO; +METO25XL PO; +MONT-35 PO; +NIFE-129 PO; +OMEP20 PO; +PREG25 PO; +ROPI0.2535 PO; -ROPI2TAB26 PO; +ZOLP-280 PO
[2024-02-10 15:44] VITALS: BP 165/62; PULSE 76; RESP 18; TEMP 98.6
[2024-02-10 16:16] LABS: GLUCOMETER DEV NAME(LOC) ERT.5; GLUCOSE,POINT OF CARE 346 MG/DL (70-110)
[2024-02-10] MEDS ORDERED: HYDR-4072 PO (17:35)
[2024-02-10] MEDS: HYDROCODONE/ACETAMINOPHEN 10-325 MG TABLET PO ONE (17:45)
== END 2024-02-10 17:53 | disposition home or self-care (01) ==
LOC: EMS 15:46
DX: G89.29 Other chronic pain (principal); M54.50 Low back pain, unspecified; E11.9 Type 2 diabetes mellitus without complications; I11.0 Hypertensive heart disease with heart failure; I50.9 Heart failure, unspecified; J45.909 Unspecified asthma, uncomplicated; K21.9 Gastro-esophageal reflux disease without esophagitis; M79.7 Fibromyalgia; K58.9 Irritable bowel syndrome, unspecified; Z90.710 Acquired absence of both cervix and uterus; Z88.0 Allergy status to penicillin; Z88.1 Allergy status to other antibiotic agents; Z88.5 Allergy status to narcotic agent
CPT/HCPCS: 82962; 99283

== ENCOUNTER 2024-09-28 19:38 | Inpatient (IN) | payer MEDICARE, OTHER ==
[~2024-09-28] VITALS: Ht 160 cm; Wt 90.9 kg
[~2024-09-28 19:38] MED LIST changes: -FURO40 PO; +FURO40TA6 PO
[2024-09-28 20:41] LABS: COVID AG,FIA SOURCE NASAL SWAB
[2024-09-28 21:18] LABS: SARS-COV2 (COVID) ANTIGEN,FIA Negative (Negative)
[2024-09-28 21:20] LABS: INFLUENZA TYPE A NEGATIVE FOR TYPE A (NEGATIVE); INFLUENZA TYPE B NEGATIVE FOR TYPE B (NEGATIVE)
[2024-09-28] MEDS ORDERED: ALBUTEROL SULFATE 2.5 MG/0.5 ML NEB SOLUTION NEB PRN (22:00)
[2024-09-28] MEDS ORDERED: IPRATROPIUM BROMIDE 0.5 MG/2.5 ML NEB SOLUTION NEB PRN (22:00)
[2024-09-28] MEDS ORDERED: ONDANSETRON HCL 4 MG/2 ML VIAL IVP PRN (22:00)
[2024-09-28] MEDS ORDERED: BUPR1PAT TP (22:07)
[2024-09-28] MEDS ORDERED: DEXTROSE 50%-WATER 25 GM/50 ML SYRINGE IVP PRN (22:15)
[2024-09-28 22:17] LABS: BASOPHILS % (AUTO) 0.3 % (0.0-2.0); EOSINOPHILS % (AUTO) 5.1 % (1.0-6.0); HEMATOCRIT 32.6 % (36-46); HEMOGLOBIN 10.6 g/dL (12.0-16.0); LYMPHOCYTES # (AUTO) 1.5 K/uL (1.0-4.8); LYMPHOCYTES % (AUTO) 14.6 % (22.0-44.0); MEAN CORPUSCULAR HEMOGLOBIN 32.1 pg (26.0-34.0); MEAN CORPUSCULAR HGB CONC 32.6 G/dL (31.0-37.0); MEAN CORPUSCULAR VOLUME 99 fL (80-100); MONOCYTES # (AUTO) 0.7 K/uL (0.1-1.0); MONOCYTES % (AUTO) 7.2 % (2.0-9.0); NEUTROPHILS # (AUTO) 7.2 K/uL (1.8-7.7); NEUTROPHILS % (AUTO) 72.8 % (40.0-70.0); PLATELET COUNT (AUTO) 289 K/uL (150-450); RED BLOOD CELL COUNT(AUTO) 3.31 MIL/uL (4.00-5.20); RED CELL DISTRIBUTION WIDTH 13.8 % (11.5-14.5); WHITE BLOOD COUNT (AUTO) 9.9 K/uL (4.5-11.0)
[2024-09-28] MEDS: SODIUM CHLORIDE 0.9% 250 ML IV ONE ×2 (22:23→22:24)
[2024-09-28 22:27] LABS: CALCIUM, TOTAL 8.7 mg/dL (8.8-10.5); CREATININE 0.97 mg/dL (0.60-1.30); POTASSIUM 4.6 mmol/L (3.5-5.1)
[2024-09-28 22:33] LABS: BILIRUBIN,TOTAL 0.3 mg/dL (0.1-1.0)
[2024-09-28 22:34] LABS: ALBUMIN 2.7 g/dL (3.4-5.0); BILIRUBIN,DIRECT 0.1 mg/dL (0.00-0.20); TROPONIN I-HIGH SENSITIVITY 4 ng/L (<51)
[2024-09-28] MEDS: MORPHINE SULFATE 4 MG/ML SYRINGE IVP ONE (22:49)
[2024-09-28] MEDS: LEVOFLOXACIN 750 MG/D5% WATER 150 ML IV ONE (22:49)
[2024-09-28] MEDS: DiphenhydrAMINE HCL 50 MG/ML VIAL IVP ONE (22:49)
[2024-09-28 22:54] LABS: LACTIC ACID 0.7 mmol/L (0.4-2.0)
[2024-09-28 23:34] LABS: APPEARANCE,URINE HAZY (CLEAR); BILIRUBIN,URINE NEGATIVE (NEGATIVE); COLOR,URINE LIGHT YELLOW (YELLOW); GLUCOSE, URINE (UA) NEGATIVE (NEGATIVE); KETONES,URINE NEGATIVE (NEGATIVE); LEUKOCYTE ESTERASE ,URINE LARGE (NEGATIVE); NITRATE,URINE NEGATIVE (NEGATIVE); OCCULT BLOOD,URINE SMALL (NEGATIVE); PH,URINE 5.5 (5.0-8.0); PROTEIN,URINE TRACE mg/dL (NEGATIVE); SPECIFIC GRAVITIY, URINE 1.014 (1.003-1.030); UROBILINOGEN,URINE <=1.0 mg/dL (<=1.0)
[2024-09-28] MEDS ORDERED: SODIUM CHLORIDE 0.9% 100 ML ONE (23:35)
[2024-09-28] MEDS ORDERED: IOHEXOL 350 MG/ML 100 ML VIAL ONE (23:35)
[2024-09-28] MEDS: SODIUM CHLORIDE 0.9% 500 ML IV ONE (23:56)
[2024-09-29 00:17] LABS: BACTERIA,URINE Moderate /HPF (None Seen); SQUAMOUS EPITHELIAL CELL,UR Few /LPF (None Seen); WBC,URINE 51-100 /HPF (0-5)
[2024-09-29 03:00] VITALS: BP 150/90; PULSE 78; RESP 18; TEMP 97.8; O2SAT 95
[2024-09-29] MEDS: ACETAMINOPHEN 325 MG TABLET PO PRN (04:37)
[2024-09-29 05:05] VITALS: BP 151/64; PULSE 69; RESP 20; TEMP 97.6; O2SAT 100
[2024-09-29] MEDS: INSULIN LISPRO 100 UNITS/ML SQ PRN (05:53)
[2024-09-29 07:58] LABS: CALCIUM, TOTAL 8.4 mg/dL (8.8-10.5); CREATININE 1.05 mg/dL (0.60-1.30); MAGNESIUM 1.6 mg/dL (1.80-2.40); POTASSIUM 4.3 mmol/L (3.5-5.1)
[2024-09-29 08:04] LABS: BASOPHILS % (AUTO) 0.2 % (0.0-2.0); EOSINOPHILS % (AUTO) 4.5 % (1.0-6.0); HEMATOCRIT 29.9 % (36-46); HEMOGLOBIN 9.8 g/dL (12.0-16.0); LYMPHOCYTES # (AUTO) 1.6 K/uL (1.0-4.8); LYMPHOCYTES % (AUTO) 14.3 % (22.0-44.0); MEAN CORPUSCULAR HEMOGLOBIN 32.5 pg (26.0-34.0); MEAN CORPUSCULAR HGB CONC 32.8 G/dL (31.0-37.0); MEAN CORPUSCULAR VOLUME 99 fL (80-100); MONOCYTES # (AUTO) 0.8 K/uL (0.1-1.0); MONOCYTES % (AUTO) 7.1 % (2.0-9.0); NEUTROPHILS # (AUTO) 8.4 K/uL (1.8-7.7); NEUTROPHILS % (AUTO) 73.9 % (40.0-70.0); PLATELET COUNT (AUTO) 279 K/uL (150-450); RED BLOOD CELL COUNT(AUTO) 3.01 MIL/uL (4.00-5.20); RED CELL DISTRIBUTION WIDTH 13.7 % (11.5-14.5); WHITE BLOOD COUNT (AUTO) 11.4 K/uL (4.5-11.0)
[2024-09-29 08:17] VITALS: BP 174/66; PULSE 72; RESP 18; TEMP 98; O2SAT 97
[2024-09-29] MEDS ORDERED: NIFEdipine 60 MG ER TABLET PO SCH (09:00)
[2024-09-29] MEDS ORDERED: PREGABALIN 25 MG CAPSULE PO SCH (09:00)
[2024-09-29] MEDS: OMEPRAZOLE 20 MG CAPSULE PO SCH (09:57)
[2024-09-29] MEDS: DOCUSATE SODIUM 100 MG CAPSULE PO SCH (09:57)
[2024-09-29] MEDS: MONTELUKAST SODIUM 10 MG TABLET PO SCH (09:57)
[2024-09-29] MEDS: ATORVASTATIN CALCIUM 10 MG TABLET PO SCH (09:57)
[2024-09-29] MEDS: ASPIRIN 81 MG CHEWABLE TABLET PO SCH (09:57)
[2024-09-29] MEDS: METHENAMINE HIPPURATE 1 GM TABLET PO SCH (09:58)
[2024-09-29] MEDS: METOPROLOL SUCCINATE 25 MG ER TABLET PO SCH (09:59)
[2024-09-29] MEDS: ASCORBIC ACID 500 MG TABLET PO SCH (10:12)
[2024-09-29] MEDS: *CLINICAL-LEVOFLOXACIN IVPB DOSING CLINICAL ONE (10:48)
[2024-09-29] MEDS ORDERED: ALBU18HF12 IH (11:00)
[2024-09-29] MEDS ORDERED: VIBE75TA PO (11:11)
[2024-09-29] MEDS ORDERED: ERGO500054 PO (11:11)
[2024-09-29] MEDS ORDERED: BUPR1PAT20 TD (11:11)
[2024-09-29] MEDS ORDERED: LINA290C PO (11:11)
[2024-09-29] MEDS ORDERED: ESTR42.510 VG (11:11)
[2024-09-29] MEDS ORDERED: AZEL137S8 NASAL (11:11)
[2024-09-29] MEDS ORDERED: LOSA-382 PO (11:11)
[2024-09-29] MEDS ORDERED: AMLO5TAB66 PO (11:11)
[2024-09-29] MEDS ORDERED: FURO20TA4 PO (11:11)
[2024-09-29] MEDS ORDERED: SEMA2PEN SQ (11:11)
[2024-09-29] MEDS: BENZONATATE 100 MG CAPSULE PO SCH (11:40)
[2024-09-29] MEDS: LOSARTAN POTASSIUM 50 MG TABLET PO SCH (11:41)
[2024-09-29] MEDS: METHOCARBAMOL 500 MG TABLET PO SCH (11:41)
[2024-09-29] MEDS: PEG 400/HYPROMELLOSE/GLYCERIN 15 ML OPHTHALMIC SOLUTION OU PRN (11:43)
[2024-09-29 11:50] LABS: GLUCOMETER DEV NAME(LOC) 6S.2; GLUCOSE,POINT OF CARE 231 MG/DL (70-110)
[2024-09-29] MEDS: LEVOFLOXACIN 750 MG/D5% WATER 150 ML IV SCH (12:28)
[2024-09-29 15:20] VITALS: BP 154/74; PULSE 72; RESP 18; TEMP 98.7; O2SAT 98
[2024-09-29] MEDS ORDERED: BENZONATATE 100 MG CAPSULE PO SCH (16:00)
[2024-09-29 20:20] VITALS: BP 135/60; PULSE 76; RESP 18; TEMP 97.9; O2SAT 99
[2024-09-29] MEDS ORDERED: MAGNESIUM SULFATE 4 GM/WATER 100 ML IV PRN (20:45)
[2024-09-29] MEDS ORDERED: MAGNESIUM OXIDE 400 MG TABLET PO PRN (20:45)
[2024-09-29 20:51] LABS: GLUCOMETER DEV NAME(LOC) 6S.1D; GLUCOSE,POINT OF CARE 148 MG/DL (70-110)
[2024-09-29] MEDS ORDERED: MethylPREDNISolone SOD SUCC 40 MG/ML VIAL IVP SCH (21:00)
[2024-09-29] MEDS ORDERED: ROPINIRole HCL 0.25 MG TABLET PO SCH (21:00)
[2024-09-29] MEDS ORDERED: TraZODone HCL 50 MG TABLET PO SCH (21:00)
[2024-09-29] MEDS: PREGABALIN 50 MG CAPSULE PO SCH (21:41)
[2024-09-29] MEDS: BACITRACIN ZINC/POLYMYXIN B 14.2 GM OINTMENT TP SCH (21:52)
[2024-09-29] MEDS: INSULIN GLARGINE,HUM.REC.ANLOG 100 UNITS/ML SQ SCH (21:57)
[2024-09-29] MEDS: ClonazePAM 0.5 MG TABLET PO PRN (22:04)
[2024-09-29] MEDS: MAGNESIUM SULFATE 2 GM/WATER 50 ML IV PRN (22:12)
[2024-09-29 22:56] LABS: GLUCOMETER DEV NAME(LOC) 6N.2B; GLUCOSE,POINT OF CARE 143 MG/DL (70-110)
[2024-09-29] MEDS: ZOLPIDEM TARTRATE 5 MG TABLET PO PRN (23:32)
[2024-09-30] VITALS (11 sets, daily range): BP systolic 131–152; BP diastolic 55–70; PULSE 68–82; RESP 16–20; TEMP 97.9–99.1; O2SAT 93–100
[2024-09-30] MEDS: HEPARIN SODIUM,PORCINE 5,000 UNITS/ML VIAL SQ SCH (00:16)
[2024-09-30 00:31] LABS: GLUCOMETER DEV NAME(LOC) 6N.1B; GLUCOSE,POINT OF CARE 109 MG/DL (70-110)
[2024-09-30] MEDS: IPRATROPIUM BROMIDE 0.5 MG/2.5 ML NEB SOLUTION NEB PRN (02:27)
[2024-09-30] MEDS: ALBUTEROL SULFATE 2.5 MG/0.5 ML NEB SOLUTION NEB PRN (02:27)
[2024-09-30 07:00] LABS: GLUCOMETER DEV NAME(LOC) 6N.1B; GLUCOSE,POINT OF CARE 142 MG/DL (70-110)
[2024-09-30] MEDS: BUDESONIDE 0.5 MG/2 ML NEB SOLUTION NEB SCH (08:10)
[2024-09-30 08:13] LABS: BASOPHILS % (AUTO) 0.3 % (0.0-2.0); EOSINOPHILS % (AUTO) 4.9 % (1.0-6.0); HEMATOCRIT 31.6 % (36-46); HEMOGLOBIN 10.7 g/dL (12.0-16.0); LYMPHOCYTES % (AUTO) 23.4 % (22.0-44.0); MEAN CORPUSCULAR HEMOGLOBIN 33.1 pg (26.0-34.0); MEAN CORPUSCULAR HGB CONC 33.7 G/dL (31.0-37.0); MEAN CORPUSCULAR VOLUME 98 fL (80-100); MONOCYTES # (AUTO) 0.6 K/uL (0.1-1.0); MONOCYTES % (AUTO) 7.4 % (2.0-9.0); NEUTROPHILS # (AUTO) 5.6 K/uL (1.8-7.7); PLATELET COUNT (AUTO) 291 K/uL (150-450); RED BLOOD CELL COUNT(AUTO) 3.22 MIL/uL (4.00-5.20); RED CELL DISTRIBUTION WIDTH 13.6 % (11.5-14.5); WHITE BLOOD COUNT (AUTO) 8.7 K/uL (4.5-11.0)
[2024-09-30 08:17] LABS: CALCIUM, TOTAL 8.9 mg/dL (8.8-10.5); CREATININE 1.15 mg/dL (0.60-1.30); MAGNESIUM 2.1 mg/dL (1.80-2.40); POTASSIUM 4.3 mmol/L (3.5-5.1)
[2024-09-30] MEDS: AmLODIPine BESYLATE 5 MG TABLET PO SCH (08:22)
[2024-09-30] MEDS: PREGABALIN 25 MG CAPSULE PO SCH (08:22)
[2024-09-30 11:16] LABS: GLUCOMETER DEV NAME(LOC) 6N.1B; GLUCOSE,POINT OF CARE 187 MG/DL (70-110)
[2024-09-30] MEDS: FLUTICASONE PROPIONATE 50 MCG/SPRAY 16 GM NASAL SPRAY NASAL SCH (16:35)
[2024-09-30] MEDS: FluvoxaMINE MALEATE 50 MG TABLET PO SCH (16:36)
[2024-09-30] MEDS: HYDROCODONE/ACETAMINOPHEN 5-325 MG TABLET PO PRN (16:37)
[2024-09-30] MEDS: FUROSEMIDE 20 MG TABLET PO SCH (16:37)
[2024-09-30 17:05] LABS: GLUCOMETER DEV NAME(LOC) 6N.1B; GLUCOSE,POINT OF CARE 173 MG/DL (70-110)
[2024-09-30 23:10] LABS: GLUCOMETER DEV NAME(LOC) 6N.1B; GLUCOSE,POINT OF CARE 163 MG/DL (70-110)
[2024-09-30] MEDS: ZOLPIDEM TARTRATE 5 MG TABLET PO PRN (23:51)
[2024-10-01] VITALS (9 sets, daily range): BP systolic 133–151; BP diastolic 58–75; PULSE 67–97; RESP 18–22; TEMP 97.9–98.2; O2SAT 89–98
[2024-10-01 06:46] LABS: GLUCOMETER DEV NAME(LOC) 6N.1B; GLUCOSE,POINT OF CARE 138 MG/DL (70-110)
[2024-10-01 07:23] LABS: BASOPHILS % (AUTO) 0.2 % (0.0-2.0); EOSINOPHILS % (AUTO) 5.5 % (1.0-6.0); HEMATOCRIT 30.7 % (36-46); HEMOGLOBIN 10.2 g/dL (12.0-16.0); LYMPHOCYTES # (AUTO) 1.4 K/uL (1.0-4.8); LYMPHOCYTES % (AUTO) 19.2 % (22.0-44.0); MEAN CORPUSCULAR HEMOGLOBIN 32.6 pg (26.0-34.0); MEAN CORPUSCULAR HGB CONC 33.2 G/dL (31.0-37.0); MEAN CORPUSCULAR VOLUME 98 fL (80-100); MONOCYTES # (AUTO) 0.6 K/uL (0.1-1.0); MONOCYTES % (AUTO) 8.4 % (2.0-9.0); NEUTROPHILS # (AUTO) 4.8 K/uL (1.8-7.7); NEUTROPHILS % (AUTO) 66.7 % (40.0-70.0); PLATELET COUNT (AUTO) 279 K/uL (150-450); RED BLOOD CELL COUNT(AUTO) 3.14 MIL/uL (4.00-5.20); RED CELL DISTRIBUTION WIDTH 13.7 % (11.5-14.5); WHITE BLOOD COUNT (AUTO) 7.2 K/uL (4.5-11.0)
[2024-10-01 07:34] LABS: CALCIUM, TOTAL 8.8 mg/dL (8.8-10.5); CREATININE 1.1 mg/dL (0.60-1.30); POTASSIUM 4.3 mmol/L (3.5-5.1)
[2024-10-01] MEDS ORDERED: DICLOFENAC SODIUM 1% 100 GM GEL [2GM] TP PRN (15:15)
[2024-10-01] MEDS ORDERED: BISACODYL 10 MG RECTAL RECTAL SUPPOSITORY PR PRN (17:30)
[2024-10-01] MEDS ORDERED: SODIUM CHLORIDE 3% 15 ML NEB SOLUTION NEB ONE (20:49)
[2024-10-02 05:49] VITALS: BP 140/75; PULSE 77; RESP 18; TEMP 98.1; O2SAT 98
[2024-10-02 07:01] LABS: GLUCOMETER DEV NAME(LOC) 6N.1B; GLUCOSE,POINT OF CARE 142 MG/DL (70-110)
[2024-10-02 07:01] LABS: GLUCOMETER DEV NAME(LOC) 6N.1B; GLUCOSE,POINT OF CARE 166 MG/DL (70-110)
[2024-10-02 07:33] LABS: CALCIUM, TOTAL 9.2 mg/dL (8.8-10.5); CREATININE 1.17 mg/dL (0.60-1.30); POTASSIUM 4.2 mmol/L (3.5-5.1)
[2024-10-02 07:39] LABS: BASOPHILS % (AUTO) 0.3 % (0.0-2.0); EOSINOPHILS % (AUTO) 6.6 % (1.0-6.0); HEMATOCRIT 31.6 % (36-46); HEMOGLOBIN 10.5 g/dL (12.0-16.0); LYMPHOCYTES # (AUTO) 1.7 K/uL (1.0-4.8); LYMPHOCYTES % (AUTO) 24.6 % (22.0-44.0); MEAN CORPUSCULAR HEMOGLOBIN 32.7 pg (26.0-34.0); MEAN CORPUSCULAR HGB CONC 33.3 G/dL (31.0-37.0); MEAN CORPUSCULAR VOLUME 98 fL (80-100); MONOCYTES # (AUTO) 0.6 K/uL (0.1-1.0); MONOCYTES % (AUTO) 8.8 % (2.0-9.0); NEUTROPHILS % (AUTO) 59.7 % (40.0-70.0); PLATELET COUNT (AUTO) 287 K/uL (150-450); RED BLOOD CELL COUNT(AUTO) 3.21 MIL/uL (4.00-5.20); RED CELL DISTRIBUTION WIDTH 13.7 % (11.5-14.5); WHITE BLOOD COUNT (AUTO) 6.7 K/uL (4.5-11.0)
[2024-10-02 08:06] VITALS: BP 137/54; PULSE 72; RESP 18; TEMP 98.1; O2SAT 97
[2024-10-02 08:11] VITALS: PULSE 72; RESP 20; O2SAT 97
[2024-10-02 08:26] VITALS: PULSE 75; RESP 20; O2SAT 97
[2024-10-02 11:01] LABS: GLUCOMETER DEV NAME(LOC) 5S.1D; GLUCOSE,POINT OF CARE 158 MG/DL (70-110)
[2024-10-02 11:01] LABS: GLUCOMETER DEV NAME(LOC) 5S.1D; GLUCOSE,POINT OF CARE 149 MG/DL (70-110)
[2024-10-02 15:28] VITALS: BP 149/64; PULSE 67; RESP 18; TEMP 97.8; O2SAT 99
[2024-10-02] MEDS: LACTULOSE 20 GM/30 ML SOLUTION UDCUP PO ONE (16:28)
[2024-10-02] MEDS ORDERED: CLOP75TA60 PO (17:31)
[2024-10-02] MEDS ORDERED: ASPI-1450 PO (17:31)
[2024-10-02] MEDS ORDERED: IPRA4AER IH (17:31)
[2024-10-02] MEDS ORDERED: ATOR40TA28 PO (17:31)
[2024-10-02 19:16] LABS: GLUCOMETER DEV NAME(LOC) 5S.1D; GLUCOSE,POINT OF CARE 144 MG/DL (70-110)
[2024-10-03 05:21] LABS: GLUCOMETER DEV NAME(LOC) 4E.2; GLUCOSE,POINT OF CARE 141 MG/DL (70-110)
[2024-10-03] MEDS ORDERED: SULF1TAB42 PO (11:23)
[2024-10-03] MEDS ORDERED: LEVO-72 PO (11:25)
== END 2024-10-02 19:40 | disposition home health service (06) | DRG 193 ==
LOC: EDUNIT# 19:38 → EMS 19:41 → EDH 21:58 → 6S 09-29 02:22 → 4E 09-29 17:20
PROVIDERS: ADMIT Internal Medicine; ATTEND Internal Medicine
DX: J18.9 Pneumonia, unspecified organism (principal); J96.01 Acute respiratory failure with hypoxia; J45.901 Unspecified asthma with (acute) exacerbation; J98.11 Atelectasis; N39.0 Urinary tract infection, site not specified; J18.0 Bronchopneumonia, unspecified organism; D64.9 Anemia, unspecified; K44.9 Diaphragmatic hernia without obstruction or gangrene; E11.51 Type 2 diabetes mellitus with diabetic peripheral angiopathy without gangrene; G89.4 Chronic pain syndrome; I11.0 Hypertensive heart disease with heart failure; I50.9 Heart failure, unspecified; K21.9 Gastro-esophageal reflux disease without esophagitis; E11.41 Type 2 diabetes mellitus with diabetic mononeuropathy; G57.83 Other specified mononeuropathies of bilateral lower limbs; E66.01 Morbid (severe) obesity due to excess calories; G47.00 Insomnia, unspecified; K58.9 Irritable bowel syndrome, unspecified; Z20.822 Contact with and (suspected) exposure to COVID-19; Z96.643 Presence of artificial hip joint, bilateral; B95.61 Methicillin susceptible Staphylococcus aureus infection as the cause of diseases classified elsewhere; F32.A Depression, unspecified; Z96.651 Presence of right artificial knee joint; Z88.1 Allergy status to other antibiotic agents; Z88.8 Allergy status to other drugs, medicaments and biological substances; Z88.6 Allergy status to analgesic agent; Z88.5 Allergy status to narcotic agent; Z82.49 Family history of ischemic heart disease and other diseases of the circulatory system; Z82.5 Family history of asthma and other chronic lower respiratory diseases; Z86.718 Personal history of other venous thrombosis and embolism; Z90.710 Acquired absence of both cervix and uterus; Z79.82 Long term (current) use of aspirin; Z79.899 Other long term (current) drug therapy; Z68.35 Body mass index [BMI] 35.0-35.9, adult
CPT/HCPCS: 71045; 71275; 80048; 80076; 81001; 82040; 82550; 82962; 83605; 83735; 83880; 84484; 85025; 87040; 87077; 87086; 87186; 87804; 93005; 93306; 93925; 93970; 94640; 97116; 97161; 99285; G0378; J1200; J1644; J1815; J1956; J2270; J2405; J3475; J7040; J7050; 36415-L1; 36415-TC; J7613

== ENCOUNTER 2024-10-26 12:01 | Emergency (ER) | payer MEDICARE, OTHER ==
[~2024-10-26] VITALS: Ht 165.1 cm; Wt 86.4 kg
[~2024-10-26 12:01] MED LIST changes: +ALBU18HF12 IH; -ALBU8.5H8 IH; +AMLO5TAB66 PO; -ATOR10TA PO; +ATOR40TA28 PO; +AZEL137S8 NASAL; +BUPR1PAT20 TD; +CLOP75TA60 PO; -DULA4.5P SQ; +ERGO500054 PO; +ESTR42.510 VG; -FERR325T27 PO; -FLUT16SP NASAL; +FURO20TA4 PO; -FURO40TA6 PO; -HYDR-4072 PO; +IPRA4AER IH; +LEVO-72 PO; +LINA290C PO; +LOSA-382 PO; -NIFE-129 PO; +SEMA2PEN SQ; +SULF1TAB42 PO; +VIBE75TA PO; -ZOLP-280 PO
[2024-10-26 12:13] VITALS: BP 149/66; PULSE 80; RESP 18; TEMP 98.1; O2SAT 99
[2024-10-26 13:31] LABS: BASOPHILS % (AUTO) 0.3 % (0.0-2.0); EOSINOPHILS % (AUTO) 2.7 % (1.0-6.0); HEMATOCRIT 35.6 % (36-46); HEMOGLOBIN 11.5 g/dL (12.0-16.0); MEAN CORPUSCULAR HEMOGLOBIN 31.7 pg (26.0-34.0); MEAN CORPUSCULAR HGB CONC 32.5 G/dL (31.0-37.0); MEAN CORPUSCULAR VOLUME 98 fL (80-100); MONOCYTES # (AUTO) 0.5 K/uL (0.1-1.0); MONOCYTES % (AUTO) 7.3 % (2.0-9.0); NEUTROPHILS # (AUTO) 5.5 K/uL (1.8-7.7); NEUTROPHILS % (AUTO) 75.7 % (40.0-70.0); PLATELET COUNT (AUTO) 284 K/uL (150-450); RED BLOOD CELL COUNT(AUTO) 3.65 MIL/uL (4.00-5.20); RED CELL DISTRIBUTION WIDTH 13.5 % (11.5-14.5); WHITE BLOOD COUNT (AUTO) 7.3 K/uL (4.5-11.0)
[2024-10-26 13:44] LABS: ANION GAP 4 mmol/L (8-16); CARBON DIOXIDE 34 mmol/L (22-29); CHLORIDE 102 mmol/L (98-107); CREATININE 1.02 mg/dL (0.60-1.30); GLOMERULAR FILTR. RATE CALC 52 mL/min (>60); GLUCOSE,RANDOM 142 mg/dL (70-110); POTASSIUM 4.3 mmol/L (3.5-5.1); SODIUM SERUM 140 mmol/L (136-145); UREA NITROGEN, BLOOD 29 mg/dL (7-18)
[2024-10-26 13:54] LABS: LIPASE 21 U/L (16-77); TROPONIN I-HIGH SENSITIVITY 8 ng/L (<51)
[2024-10-26] MEDS: PROCHLORPERAZINE EDISYLATE 5 MG/ML 2 ML VIAL IVP ONE (15:10)
[2024-10-26] MEDS: DiphenhydrAMINE HCL 50 MG/ML VIAL IVP ONE (15:10)
[2024-10-26] MEDS: SODIUM CHLORIDE 0.9% 1,000 ML IV ONE (15:10)
[2024-10-26] MEDS: KETOROLAC TROMETHAMINE 30 MG/ML VIAL IVP ONE (15:11)
[2024-10-26 15:24] LABS: APPEARANCE,URINE HAZY (CLEAR); BILIRUBIN,URINE NEGATIVE (NEGATIVE); COLOR,URINE LIGHT YELLOW (YELLOW); GLUCOSE, URINE (UA) NEGATIVE (NEGATIVE); KETONES,URINE NEGATIVE (NEGATIVE); LEUKOCYTE ESTERASE ,URINE LARGE (NEGATIVE); NITRATE,URINE NEGATIVE (NEGATIVE); OCCULT BLOOD,URINE SMALL (NEGATIVE); PH,URINE 7.5 (5.0-8.0); PROTEIN,URINE TRACE mg/dL (NEGATIVE); SPECIFIC GRAVITIY, URINE 1.017 (1.003-1.030); UROBILINOGEN,URINE <=1.0 mg/dL (<=1.0)
[2024-10-26 15:33] LABS: BACTERIA,URINE Few /HPF (None Seen); SQUAMOUS EPITHELIAL CELL,UR Few /LPF (None Seen); WBC,URINE 51-100 /HPF (0-5)
[2024-10-26] MEDS: DIAZEPAM 5 MG/ML 2 ML SYRINGE IVP ONE (16:50)
[2024-10-26] MEDS: DEXAMETHASONE SOD PHOS 4 MG/ML VIAL IVP ONE (16:50)
[2024-10-26] MEDS: MAGNESIUM SULFATE 1 GM in DEXTROSE 5%-WATER 50 ML IV ONE (17:22)
[2024-10-26] MEDS ORDERED: PROC5TAB54 PO (17:41)
== END 2024-10-26 18:11 | disposition home or self-care (01) ==
LOC: EMS 12:01
DX: G43.909 Migraine, unspecified, not intractable, without status migrainosus (principal); R11.2 Nausea with vomiting, unspecified; I11.0 Hypertensive heart disease with heart failure; I50.9 Heart failure, unspecified; J45.909 Unspecified asthma, uncomplicated; K21.9 Gastro-esophageal reflux disease without esophagitis; E11.65 Type 2 diabetes mellitus with hyperglycemia; F32.A Depression, unspecified; Z88.1 Allergy status to other antibiotic agents; Z88.5 Allergy status to narcotic agent; Z88.8 Allergy status to other drugs, medicaments and biological substances; Z90.710 Acquired absence of both cervix and uterus; Z79.02 Long term (current) use of antithrombotics/antiplatelets; Z79.82 Long term (current) use of aspirin; Z79.85 Long-term (current) use of injectable non-insulin antidiabetic drugs; Z79.899 Other long term (current) drug therapy
CPT/HCPCS: 99284; 96375; 96365; 96361; 80048; 81001; 83690; 84484; 85025; 87077; 87086; 36415; 93005; J1885 ×2; J1100; J1200; J0780; J7060; J3475; J7030; 87186

== ENCOUNTER 2025-05-07 17:29 | Emergency (ER) | payer MEDICARE, OTHER ==
[~2025-05-07] VITALS: Ht 160 cm; Wt 95.5 kg
[~2025-05-07 17:29] MED LIST changes: -CLOP75TA60 PO; +CLOP75TA83 PO; +OMEP-148 PO; -OMEP20 PO; +PROC5TAB54 PO
[2025-05-07 17:41] VITALS: BP 174/54; PULSE 68; RESP 18; TEMP 97.2; O2SAT 95
[2025-05-07 18:06] LABS: GLUCOMETER DEV NAME(LOC) ER.7; GLUCOSE,POINT OF CARE 111 MG/DL (70-110)
[2025-05-07 18:10] LABS: COVID AG,FIA SOURCE NASAL SWAB
[2025-05-07 18:57] LABS: INFLUENZA TYPE A NEGATIVE FOR TYPE A (NEGATIVE); INFLUENZA TYPE B NEGATIVE FOR TYPE B (NEGATIVE); SARS-COV2 (COVID) ANTIGEN,FIA Negative (Negative)
[2025-05-07] MEDS: LIDOCAINE 5% TRANSDERMAL PATCH TD ONE (19:32)
[2025-05-07] MEDS: KETOROLAC TROMETHAMINE 30 MG/ML VIAL IM ONE (19:33)
[2025-05-07] MEDS ORDERED: DOXY-354 PO (20:08)
== END 2025-05-07 20:30 | disposition still patient (30) ==
LOC: EMS 17:29
DX: G89.29 Other chronic pain (principal); M54.50 Low back pain, unspecified; J06.9 Acute upper respiratory infection, unspecified; E11.9 Type 2 diabetes mellitus without complications; F32.A Depression, unspecified; I11.0 Hypertensive heart disease with heart failure; I50.9 Heart failure, unspecified; J45.909 Unspecified asthma, uncomplicated; K58.9 Irritable bowel syndrome, unspecified; M19.90 Unspecified osteoarthritis, unspecified site; Z90.710 Acquired absence of both cervix and uterus; Z88.1 Allergy status to other antibiotic agents; Z88.5 Allergy status to narcotic agent; Z88.8 Allergy status to other drugs, medicaments and biological substances; Z79.02 Long term (current) use of antithrombotics/antiplatelets; Z79.85 Long-term (current) use of injectable non-insulin antidiabetic drugs; Z79.82 Long term (current) use of aspirin; Z79.899 Other long term (current) drug therapy; Z20.822 Contact with and (suspected) exposure to COVID-19
CPT/HCPCS: 99284; 71045; 87426; 82962; 87804; 96372; J1885

== ENCOUNTER 2025-08-21 15:40 | Inpatient (IN) | payer MEDICARE, OTHER ==
[~2025-08-21] VITALS: Ht 160 cm; Wt 105.4 kg
[~2025-08-21 15:40] MED LIST changes: +DOXY-354 PO
[2025-08-21 16:44] LABS: PLATELET COUNT (AUTO) 302 K/uL (150-450); RED BLOOD CELL COUNT(AUTO) 3.40 MIL/uL (4.00-5.20); RED CELL DISTRIBUTION WIDTH 14.7 % (11.5-14.5); WHITE BLOOD COUNT (AUTO) 15.4 K/uL (4.5-11.0)
[2025-08-21 16:54] LABS: CALCIUM, TOTAL 8.8 mg/dL (8.8-10.5); CREATININE 1.25 mg/dL (0.60-1.30); GLOMERULAR FILTR. RATE CALC 41 mL/min (>60); GLUCOSE,RANDOM 142 mg/dL (70-110); SODIUM SERUM 140 mmol/L (136-145); UREA NITROGEN, BLOOD 49 mg/dL (7-18)
[2025-08-21 16:59] LABS: ASPARTATE AMINOTRANSFERASE 14.0 U/L (15-37); TOTAL PROTEIN, SERUM 6.2 g/dL (6.4-8.2)
[2025-08-21 17:04] LABS: TROPONIN I-HIGH SENSITIVITY 7 ng/L (<51)
[2025-08-21] MEDS: IPRATROPIUM BROMIDE 0.5 MG/2.5 ML NEB SOLUTION NEB ONE (17:26)
[2025-08-21] MEDS: ALBUTEROL SULFATE 2.5 MG/0.5 ML NEB SOLUTION NEB ONE (17:26)
[2025-08-21 17:28] VITALS: PULSE 76; RESP 18; O2SAT 100
[2025-08-21 17:30] VITALS: PULSE 76; RESP 16; O2SAT 100
[2025-08-21] MEDS ORDERED: IOHEXOL 350 MG/ML 100 ML VIAL ONE (18:05)
[2025-08-21] MEDS ORDERED: SODIUM CHLORIDE 0.9% 100 ML ONE (18:05)
[2025-08-21] MEDS ORDERED: 0.9% SODIUM CHLORIDE 10 ML SYRINGE IVP ONE (18:05)
[2025-08-21] MEDS: LEVOFLOXACIN 750 MG/D5% WATER 150 ML IV ONE (18:30)
[2025-08-21 18:47] LABS: APPEARANCE,URINE CLEAR (CLEAR); GLUCOSE, URINE (UA) NEGATIVE (NEGATIVE); LEUKOCYTE ESTERASE ,URINE LARGE (NEGATIVE); NITRATE,URINE POSITIVE (NEGATIVE); OCCULT BLOOD,URINE SMALL (NEGATIVE); SPECIFIC GRAVITIY, URINE 1.011 (1.003-1.030)
[2025-08-21 18:54] LABS: SQUAMOUS EPITHELIAL CELL,UR Few /LPF (None Seen)
[2025-08-21 19:02] LABS: COVID AG,FIA SOURCE NASAL SWAB
[2025-08-21 19:28] LABS: SARS-COV2 (COVID) ANTIGEN,FIA Negative (Negative)
[2025-08-21 19:29] LABS: INFLUENZA TYPE A NEGATIVE FOR TYPE A (NEGATIVE); INFLUENZA TYPE B NEGATIVE FOR TYPE B (NEGATIVE)
[2025-08-21] MEDS: BENZONATATE 100 MG CAPSULE PO ONE (22:26)
[2025-08-21] MEDS: ACETAMINOPHEN 500 MG TABLET PO ONE (22:27)
[2025-08-21] MEDS: DOCUSATE SODIUM 100 MG CAPSULE PO SCH (22:27)
[2025-08-22] MEDS: HEPARIN SODIUM,PORCINE 5,000 UNITS/ML VIAL SQ SCH
[2025-08-22] MEDS: ZOLPIDEM TARTRATE 5 MG TABLET PO PRN (02:25)
[2025-08-22] MEDS: ACETAMINOPHEN 325 MG TABLET PO PRN (02:25)
[2025-08-22 05:44] LABS: PLATELET COUNT (AUTO) 284 K/uL (150-450); RED BLOOD CELL COUNT(AUTO) 3.45 MIL/uL (4.00-5.20); RED CELL DISTRIBUTION WIDTH 14.5 % (11.5-14.5); WHITE BLOOD COUNT (AUTO) 9.6 K/uL (4.5-11.0)
[2025-08-22 05:53] LABS: CALCIUM, TOTAL 9.1 mg/dL (8.8-10.5); CREATININE 1.29 mg/dL (0.60-1.30); GLOMERULAR FILTR. RATE CALC 40.0 mL/min (>60); GLUCOSE,RANDOM 311.0 mg/dL (70-110); SODIUM SERUM 137.0 mmol/L (136-145); UREA NITROGEN, BLOOD 46.0 mg/dL (7-18)
[2025-08-22] MEDS: PANTOPRAZOLE SODIUM 40 MG DR TABLET PO SCH (07:23)
[2025-08-22 08:27] LABS: GLUCOMETER DEV NAME(LOC) ER.7; GLUCOSE,POINT OF CARE 249 MG/DL (70-110)
[2025-08-22 09:50] VITALS: BP 159/80; PULSE 66; RESP 22; TEMP 98.4; O2SAT 95
[2025-08-22] MEDS ORDERED: DEXTROSE 50%-WATER 25 GM/50 ML SYRINGE IVP PRN (11:00)
[2025-08-22] MEDS: INSULIN LISPRO 100 UNITS/ML SQ PRN (12:14)
[2025-08-22 12:31] LABS: GLUCOMETER DEV NAME(LOC) 5S.1E; GLUCOSE,POINT OF CARE 249 MG/DL (70-110)
[2025-08-22 14:17] VITALS: PULSE 70; RESP 16; O2SAT 99
[2025-08-22] MEDS: IPRATROPIUM BROMIDE 0.5 MG/2.5 ML NEB SOLUTION NEB PRN (14:17)
[2025-08-22] MEDS: ALBUTEROL SULFATE 2.5 MG/0.5 ML NEB SOLUTION NEB PRN (14:17)
[2025-08-22 14:18] VITALS: PULSE 70; RESP 16; O2SAT 100
[2025-08-22] MEDS: PEG 400/HYPROMELLOSE/GLYCERIN 15 ML OPHTHALMIC SOLUTION OU PRN (16:12)
[2025-08-22] MEDS: PREGABALIN 25 MG CAPSULE PO SCH (16:12)
[2025-08-22 17:00] VITALS: BP 148/81; PULSE 67; RESP 21; TEMP 98.6; O2SAT 95
[2025-08-22] MEDS ORDERED: SODIUM CHLORIDE 0.9% 1,000 ML ONE (17:07)
[2025-08-22 17:21] LABS: GLUCOMETER DEV NAME(LOC) 5S.1E; GLUCOSE,POINT OF CARE 329 MG/DL (70-110)
[2025-08-22] MEDS: LEVOFLOXACIN 750 MG/D5% WATER 150 ML IV SCH (17:41)
[2025-08-22 19:58] VITALS: BP 174/76; PULSE 81; RESP 20; TEMP 98.2; O2SAT 95
[2025-08-22] MEDS: FUROSEMIDE 20 MG TABLET PO SCH (21:42)
[2025-08-22] MEDS: BENZONATATE 100 MG CAPSULE PO SCH (21:42)
[2025-08-22] MEDS: ATORVASTATIN CALCIUM 40 MG TABLET PO SCH (21:42)
[2025-08-22] MEDS: NYSTATIN 30 GM OINTMENT TP SCH (21:43)
[2025-08-22 22:07] VITALS: BP 143/74; PULSE 69; RESP 20; O2SAT 96
[2025-08-23] VITALS (13 sets, daily range): BP systolic 139–156; BP diastolic 53–89; PULSE 61–80; RESP 16–20; TEMP 97.3–98.4; O2SAT 94–99
[2025-08-23 07:06] LABS: PLATELET COUNT (AUTO) 292 K/uL (150-450); RED BLOOD CELL COUNT(AUTO) 3.30 MIL/uL (4.00-5.20); RED CELL DISTRIBUTION WIDTH 14.8 % (11.5-14.5); WHITE BLOOD COUNT (AUTO) 12.8 K/uL (4.5-11.0)
[2025-08-23 07:16] LABS: CALCIUM, TOTAL 8.9 mg/dL (8.8-10.5); CREATININE 1.22 mg/dL (0.60-1.30); GLOMERULAR FILTR. RATE CALC 42.0 mL/min (>60); GLUCOSE,RANDOM 186.0 mg/dL (70-110); SODIUM SERUM 136.0 mmol/L (136-145); UREA NITROGEN, BLOOD 43.0 mg/dL (7-18)
[2025-08-23 07:51] LABS: GLUCOMETER DEV NAME(LOC) 5S.1E; GLUCOSE,POINT OF CARE 186 MG/DL (70-110)
[2025-08-23 07:51] LABS: GLUCOMETER DEV NAME(LOC) 5S.1E; GLUCOSE,POINT OF CARE 246 MG/DL (70-110)
[2025-08-23] MEDS: CLOPIDOGREL BISULFATE 75 MG TABLET PO SCH (08:09)
[2025-08-23] MEDS: MONTELUKAST SODIUM 10 MG TABLET PO SCH (08:10)
[2025-08-23] MEDS: ASPIRIN 81 MG CHEWABLE TABLET PO SCH (08:10)
[2025-08-23] MEDS: METOPROLOL SUCCINATE 25 MG ER TABLET PO SCH (08:10)
[2025-08-23] MEDS: LOSARTAN POTASSIUM 50 MG TABLET PO SCH (08:10)
[2025-08-23] MEDS: EMPAGLIFLOZIN 25 MG TABLET PO SCH (08:11)
[2025-08-23] MEDS: LINACLOTIDE 145 MCG CAPSULE PO SCH (08:11)
[2025-08-23 14:31] LABS: GLUCOMETER DEV NAME(LOC) 5S.1E; GLUCOSE,POINT OF CARE 239 MG/DL (70-110)
[2025-08-23] MEDS: GuaiFENesin/D-METHORPHAN [SUGAR-FREE] 200-20MG/10 ML SYRUP UDCUP PO PRN (17:44)
[2025-08-23] MEDS ORDERED: FUROSEMIDE 20 MG TABLET PO SCH (21:00)
[2025-08-23] MEDS: FLUTICASONE PROPIONATE 50 MCG/SPRAY 16 GM NASAL SPRAY NASAL SCH (21:02)
[2025-08-23] MEDS: ACETAMINOPHEN 325 MG TABLET PO PRN (21:06)
[2025-08-23 22:10] LABS: GLUCOMETER DEV NAME(LOC) 5S.1E; GLUCOSE,POINT OF CARE 388 MG/DL (70-110)
[2025-08-23 22:10] LABS: GLUCOMETER DEV NAME(LOC) 5S.1E; GLUCOSE,POINT OF CARE 267 MG/DL (70-110)
[2025-08-23] MEDS: NYSTATIN 15 GM POWDER BOTTLE TP SCH (23:17)
[2025-08-24] VITALS (10 sets, daily range): BP systolic 139–152; BP diastolic 47–62; PULSE 62–69; RESP 16–20; TEMP 97.5–98.1; O2SAT 96–100
[2025-08-24 06:28] LABS: PLATELET COUNT (AUTO) 268 K/uL (150-450); RED BLOOD CELL COUNT(AUTO) 3.11 MIL/uL (4.00-5.20); RED CELL DISTRIBUTION WIDTH 14.2 % (11.5-14.5); WHITE BLOOD COUNT (AUTO) 9.0 K/uL (4.5-11.0)
[2025-08-24 06:45] LABS: CALCIUM, TOTAL 8.8 mg/dL (8.8-10.5); CREATININE 1.09 mg/dL (0.60-1.30); GLOMERULAR FILTR. RATE CALC 48.0 mL/min (>60); GLUCOSE,RANDOM 199.0 mg/dL (70-110); SODIUM SERUM 135.0 mmol/L (136-145); UREA NITROGEN, BLOOD 40.0 mg/dL (7-18)
[2025-08-24] MEDS: FUROSEMIDE 20 MG TABLET PO SCH (08:56)
[2025-08-24] MEDS ORDERED: LEVO750T68 PO (09:01)
[2025-08-24] MEDS ORDERED: PRED-554 PO (09:01)
[2025-08-24] MEDS ORDERED: BENZ-227 PO (09:01)
[2025-08-24] MEDS: MAGNESIUM HYDROXIDE SUSPENSION 30 ML UDCUP PO PRN (09:02)
[2025-08-24 12:31] LABS: GLUCOMETER DEV NAME(LOC) 5S.1E; GLUCOSE,POINT OF CARE 263 MG/DL (70-110)
[2025-08-24 12:31] LABS: GLUCOMETER DEV NAME(LOC) 5S.1E; GLUCOSE,POINT OF CARE 194 MG/DL (70-110)
[2025-08-24] MEDS: BISACODYL 10 MG RECTAL RECTAL SUPPOSITORY PR PRN (20:48)
[2025-08-24] MEDS: BISACODYL 5 MG EC TABLET PO SCH (21:04)
[2025-08-24 22:31] LABS: GLUCOMETER DEV NAME(LOC) 5S.2E; GLUCOSE,POINT OF CARE 348 MG/DL (70-110)
[2025-08-25] VITALS (8 sets, daily range): BP systolic 140–164; BP diastolic 55–84; PULSE 62–73; RESP 18–20; TEMP 97.5–98.4; O2SAT 95–100
[2025-08-25 06:40] LABS: GLUCOMETER DEV NAME(LOC) 5S.1E; GLUCOSE,POINT OF CARE 317 MG/DL (70-110)
[2025-08-25 06:40] LABS: GLUCOMETER DEV NAME(LOC) 5S.1E; GLUCOSE,POINT OF CARE 214 MG/DL (70-110)
[2025-08-25 20:10] LABS: GLUCOMETER DEV NAME(LOC) 5S.1E; GLUCOSE,POINT OF CARE 285 MG/DL (70-110)
[2025-08-25 20:10] LABS: GLUCOMETER DEV NAME(LOC) 5S.1E; GLUCOSE,POINT OF CARE 289 MG/DL (70-110)
[2025-08-25] MEDS: METOPROLOL SUCCINATE 25 MG ER TABLET PO SCH (22:22)
[2025-08-25] MEDS: MINERAL OIL 133 ML ENEMA PR ONE (22:23)
[2025-08-25 23:06] LABS: GLUCOMETER DEV NAME(LOC) 5S.1E; GLUCOSE,POINT OF CARE 389 MG/DL (70-110)
[2025-08-26] VITALS (9 sets, daily range): BP systolic 127–151; BP diastolic 47–55; PULSE 58–71; RESP 18–20; TEMP 97.9–98.1; O2SAT 95–100
[2025-08-26 06:05] LABS: PLATELET COUNT (AUTO) 295 K/uL (150-450); RED BLOOD CELL COUNT(AUTO) 3.39 MIL/uL (4.00-5.20); RED CELL DISTRIBUTION WIDTH 14.4 % (11.5-14.5); WHITE BLOOD COUNT (AUTO) 9.8 K/uL (4.5-11.0)
[2025-08-26 06:23] LABS: CALCIUM, TOTAL 8.9 mg/dL (8.8-10.5); CREATININE 1.27 mg/dL (0.60-1.30); GLOMERULAR FILTR. RATE CALC 40.0 mL/min (>60); GLUCOSE,RANDOM 170.0 mg/dL (70-110); SODIUM SERUM 137.0 mmol/L (136-145); UREA NITROGEN, BLOOD 37.0 mg/dL (7-18)
[2025-08-26 06:55] LABS: GLUCOMETER DEV NAME(LOC) 5S.2E; GLUCOSE,POINT OF CARE 189 MG/DL (70-110)
[2025-08-26] MEDS ORDERED: LEVO-72 PO (12:08)
[2025-08-26 20:20] LABS: GLUCOMETER DEV NAME(LOC) 5S.2E; GLUCOSE,POINT OF CARE 316 MG/DL (70-110)
[2025-08-29] MEDS ORDERED: ERGOCALCIFEROL (VIT D2) 50,000 UNITS [1,250 MCG] CAPSULE PO SCH (09:00)
== END 2025-08-26 16:50 | disposition home health service (06) | DRG 177 ==
LOC: EMS 15:40 → EDH 18:55 → 5N 08-22 09:00
PROVIDERS: ADMIT Internal Medicine; ATTEND Internal Medicine
DX: J15.69 Pneumonia due to other Gram-negative bacteria (principal); J96.21 Acute and chronic respiratory failure with hypoxia; J44.0 Chronic obstructive pulmonary disease with (acute) lower respiratory infection; N39.0 Urinary tract infection, site not specified; Z68.41 Body mass index [BMI] 40.0-44.9, adult; I50.9 Heart failure, unspecified; E11.9 Type 2 diabetes mellitus without complications; I11.0 Hypertensive heart disease with heart failure; F32.A Depression, unspecified; G25.81 Restless legs syndrome; J44.1 Chronic obstructive pulmonary disease with (acute) exacerbation; J45.901 Unspecified asthma with (acute) exacerbation; I10 Essential (primary) hypertension; K21.9 Gastro-esophageal reflux disease without esophagitis; E78.5 Hyperlipidemia, unspecified; Z20.822 Contact with and (suspected) exposure to COVID-19; K59.00 Constipation, unspecified; E66.01 Morbid (severe) obesity due to excess calories; M79.7 Fibromyalgia; Z88.1 Allergy status to other antibiotic agents; Z88.5 Allergy status to narcotic agent; Z88.8 Allergy status to other drugs, medicaments and biological substances; Z90.710 Acquired absence of both cervix and uterus; Z79.899 Other long term (current) drug therapy
CPT/HCPCS: 71045; 71275; 80048; 80076; 81001; 82962; 83036; 83880; 84132; 84484; 85025; 85379; 87040; 87086; 87804; 93005; 94640; 94760; 97116; 97162; 97530; 99285; G0378; J1644; J1956; J2919; J7030; J7050; 36415-L1; 36415-TC; J7613